=== PATIENT | female | born 1955 | race Caucasian/White ===

== ENCOUNTER 2019-07-30 09:57 | Emergency (ER) | payer OTHER ==
[2019-07-30 11:15] LABS: Absolute Lymphocytes (CBC) 3.2 K/uL (0.7-4.9); Basophils % 0.8 % (0-1.3); Hematocrit 38.6 % (36.0-45.0); Lymphocytes % 38.7 % (15.3-44.8); MPV 8.5 fL (7.6-11.3); RBC Red Blood Cell Count 4.43 M/uL (3.86-4.86)
--- NOTE | 2019-07-30 11:23 | RAD REPORT ---
EXAM DESCRIPTION: RAD - Femur Right - 07/30/2019 10:59 am CLINICAL HISTORY: Fall, right leg pain COMPARISON: None. FINDINGS: No fracture, dislocation or periosteal reaction noted. Patient has minimal right hip joint degenerative change. Femoral head maintains smooth rounded contour. Degenerative changes are present at the knee joint. Medial compartment and patellofemoral compartment marginal spurs are present. No measurable joint effusion. No air or foreign body in the soft tissues. IMPRESSION: Hip and knee joint degenerative changes are present but no fracture or acute finding see n.
--- NOTE | 2019-07-30 11:24 | RAD REPORT ---
EXAM DESCRIPTION: RAD - Humerus Left - 07/30/2019 10:59 am CLINICAL HISTORY: Fall, left arm pain COMPARISON: None. FINDINGS: No fracture is identified. There is no dislocation or periosteal reaction noted. No forei gn body or other soft tissue abnormality. Patient has degenerative change at the AC joint without spu rring. Acromial humeral joint space is normal. Elbow joint is not optimally imaged; however, no signi ficant degenerative change or acute finding seen. IMPRESSION: No fracture or acute left humerus finding.
--- NOTE | 2019-07-30 11:25 | RAD REPORT ---
EXAM DESCRIPTION: RAD - Knee Left 3 View - 07/30/2019 10:59 am CLINICAL HISTORY: Left knee pain status post injury FINDINGS: No fracture or dislocation is seen. Bones are osteoporotic
[2019-07-30 11:38] LABS: ALT/SGPT 20 U/L (12-78); AST/SGOT 15 U/L (15-37); Albumin 3.4 g/dL (3.4-5.0); Alkaline Phosphatase 110 U/L (45-117); BUN Blood Urea Nitrogen 11 mg/dL (7-18); Bicarbonate 30 mmol/L (21-32); Bilirubin Direct < 0.1 mg/dL (0-0.2); Bilirubin Total 0.3 mg/dL (0.2-1.0); Glucose Level 168 mg/dL (74-106); Lipase 54 U/L (73-393); Potassium 3.6 mmol/L (3.5-5.1); Protein, Total 7.2 g/dL (6.4-8.2); Sodium Level 144 mmol/L (136-145)
--- NOTE | 2019-07-30 12:06 | RAD REPORT ---
EXAM DESCRIPTION: CT - Head Brain Wo Cont - 07/30/2019 11:50 am CLINICAL HISTORY: Head injury status post fall. Headache COMPARISON: 2014 TECHNIQUE: Computed axial tomography of the head was obtained. IV contrast was not requested. All CT scans are performed using dose optimization technique as appropriate and may include automated exposure control or mA/KV adjustment according to patient size. FINDINGS: An intracranial bleed is not seen . The ventricles are normal in caliber. No extra-axial fluid collection is noted. Moderate low-density areas present within the right frontal lobe extending into the right internal ca psule and basal ganglia compatible with old infarction. Fluid within the sinuses/ mastoids is not seen. IMPRESSION: No acute intracranial abnormality is seen. If patient's symptoms persist MRI of the bra in would be recommended.
--- NOTE | 2019-07-30 12:12 | RAD REPORT ---
EXAM DESCRIPTION: CT - Abdomen Pelvis W Contrast - 07/30/2019 11:50 am CLINICAL HISTORY: Abdominal pain COMPARISON: 2011 TECHNIQUE: Computed axial tomography of the abdomen pelvis was obtained. 100 cc Isovue-300 was admin istered intravenously. Oral contrast was not requested which limits evaluation of bowel. All CT scans are performed using dose optimization technique as appropriate and may include automated exposure control or mA/KV adjustment according to patient size. FINDINGS: Fatty liver The spleen, pancreas, adrenals and left kidney unremarkable Malrotation of the right kidney. Right kidney is otherwise unremarkable There is no evidence of diverticulitis. Hysterectomy. Cholecystectomy Duodenal diverticulum IMPRESSION: No acute abnormality is displayed.
--- NOTE | 2019-07-30 12:49 | ER ---
Nurse's Notes [facility] Name: Aurea Felix Age: 64 yrs Sex: Female : 1955 Arrival Date: 07/30/2019 Time: 10:02 Bed 14 Private MD: Diagnosis: Pain in left knee;Contusion of abdominal wall;Fall from bed Presentation: 07/30 09:56 Presenting complaint: EMS states: Pt. is A \T\ O x 4 and fell last night, c/o left knee rb1 pain 8/10. [facility] reports that the pt. face looks more swollen than usual, but some swelling is normal for the pt. History of CVA, left sided deficits, hypertension, and GERD. NKDA. BP 161/85,P 102, R 98% RA, R 16. Transition of care: [facility]. Onset of symptoms was July 29, 2019. Risk Assessment: Do you want to hurt yourself or someone else? Patient reports no desire to harm self or others. Initial Sepsis Screen: Does the patient meet any 2 criteria? No. Patient's initial sepsis screen is negative. Does the patient have a suspected source of infection? No. Patient's initial sepsis screen is negative. Care prior to arrival: None. 09:56 Method Of Arrival: EMS: [facility] rb1 09:56 Acuity: JUAN A 3 rb1 Triage Assessment: 09:56 General: Appears in no apparent distress. comfortable, Behavior is calm, cooperative, rb1 Denies fever, feeling ill. Pain: Complains of pain in left knee and right thigh Pain currently is 8 out of 10 on a pain scale. Pain began 1 day ago. Neuro: Level of Consciousness is awake, alert, obeys commands, Oriented to person, place, time, situation. Cardiovascular: Capillary refill < 3 seconds is brisk in bilateral fingers. Respiratory: Airway is patent Respiratory effort is even, unlabored, Respiratory pattern is regular, symmetrical. GI: No signs and/or symptoms were reported involving the gastrointestinal system. : No signs and/or symptoms were reported regarding the genitourinary system. Derm: Bruising that is yellow, on left knee, left heck. 09:56 Derm: Bruising that is dark purple, on epigastric area Pt. reports when she fell rb1 yesterday that she hit the brake on her wheelchair that is next to the bed.. Musculoskeletal: Range of motion: left sided deficits due to previous stroke. Historical: - Allergies: 09:56 No Known Allergies; rb1 - Home Meds: :56 alendronate 70 mg/75 mL Oral soln 75 mL once wkly [Active]; aspirin 325 mg Oral tab 1 rb1 tab once daily [Active]; atorvastatin 40 mg oral tab [Active]; baclofen 10 mg Oral tab 1 tab 3 times per day [Active]; cyanocobalamin (vitamin B-12) 100 mcg oral tab daily [Active]; cyclobenzaprine 10 mg Oral tab 1 tab 2 times per day [Active]; Ditropan XL 5 mg Oral tr24 1 tab once daily [Active]; duloxetine 60 mg Oral cpDR 2 caps once daily [Active]; docusate sodium 250 mg Oral cap 1 cap once daily [Active]; hydroxyzine pamoate 25 mg Oral cap 1 cap 3 times per day [Active]; ipratropium-albuterol 0.5 mg-3 mg(2.5 mg base)/3 mL Inhl nebu 3 mL 4 times per day [Active]; loratadine 10 mg oral tab 1 tab once daily [Active]; losartan 50 mg oral tab 2 tabs once daily [Active]; Lyrica 75 mg Oral 1 cap 3 times per day [Active]; melatonin 3 mg Oral tab 2 tabs nightly [Active]; metoprolol tartrate 25 mg Oral tab 1 tab 2 times per day [Active]; mirtazapine 30 mg Oral tab 1 tab once daily [Active]; multivitamin oral oral [Active]; 09:56 [place] 10-325 mg Oral tab 1 tab three times a day [Active]; omeprazole 20 mg Oral TbEC rb1 20 mg every 8 hours [Active]; Vitamin D3 oral 500-200 mg-unit oral 1 tab twice a day [Active]; propranolol 40 mg Oral tab 1 tab 2 times per day [Active]; ropinrole hcl 0.25 mg 1 tab nightly [Active]; senna 8.6 mg oral cap 2 caps two times a day [Active]; - PMHx: 09:56 acid reflux; CVA; Diverticulitis; Hyperlipidemia; TIA; rb1 - Immunization history:: Adult Immunizations up to date. - Social history:: Smoking status: Patient uses tobacco products, smokes one-half pack cigarettes per day. - Ebola Screening: : Patient negative for fever greater than or equal to 101.5 degrees Fahrenheit, and additional compatible Ebola Virus Disease symptoms. Screenin:56 Abuse screen: Denies threats or abuse. Nutritional screening: No deficits noted. rb1 Tuberculosis screening: No symptoms or risk factors identified. Fall Risk Fall in past 12 months (25 points). Secondary diagnosis (15 points) CVA, IV access (20 points). Ambulatory Aid- Crutches/Cane/Walker (15 pts). Gait- Normal/Bed Rest/Wheelchair (0 pts) Mental Status- Oriented to own ability (0 pts). Total Cal[place]oun Fall Scale indicates High Risk Score (45 or more points). Fall prevention measures have been instituted. Side Rails Up X 2 Placed Close to Nursing Station 1:1 Attendant Assigned Frequent Obs/Assessments Occuring As available patient and family educated on Fall Prevention Program and Strategies. Assessment: 09:56 General: See triage assessment. rb1 11:00 Reassessment: Patient appears in no apparent distress at this time. No changes from rb1 previously documented assessment. 11:30 Reassessment: Patient appears in no apparent distress at this time. Patient and/or rb1 family updated on plan of care and expected duration. Pain level reassessed. Patient is alert, oriented x 3, equal unlabored respirations, skin warm/dry/pink. 12:12 Reassessment: Patient appears in no apparent distress at this time. Pt. is resting with rb1 eyes closed, respirations even, unlabored. Call light within reach. 12:55 Reassessment: Called [facility] and gave report, requested transportation back to the [facility] facility. They will provide transportation, will call us back when they make arrangements. 13:03 Reassessment: Discharge pending due to transportation back to the facility. rb1 13:22 Reassessment: Patient appears in no apparent distress at this time. Patient and/or rb1 family updated on plan of care and expected duration. Pain level reassessed. Patient is alert, oriented x 3, equal unlabored respirations, skin warm/dry/pink. Awaiting transportation back to the facililty. 13:45 Reassessment: Patient appears in no apparent distress at this time. No changes from rb1 previously documented assessment. 14:07 Reassessment: Patient appears in no apparent distress at this time. Patient and/or rb1 family updated on plan of care and expected duration. Pain level reassessed. Patient is alert, oriented x 3, equal unlabored respirations, skin warm/dry/pink. Transportation has arrived. Vital Signs: 09:56 BP 144 / 81; Pulse 102; Resp 16; Temp 98.1(O); Pulse Ox 96% on R/A; Weight 76.66 kg rb1 (R); Height 5 ft. 1 in. (154.94 cm) (R); Pain 8/10; 11:00 BP 137 / 73; Pulse 78; Resp 19; Pulse Ox 95% on R/A; Pain 8/10; rb1 11:30 BP 121 / 69; Pulse 76; Resp 21; Pulse Ox 95% on R/A; rb1 12:30 BP 110 / 71; Pulse 70; Resp 17; Pulse Ox 95% on R/A; rb1 13:30 BP 128 / 78; Pulse 71; Resp 15; Temp 98.3(O); Pulse Ox 96% on R/A; Pain 6/10; rb1 09:56 Body Mass Index 31.93 (76.66 kg, 154.94 cm) rb1 ED Course: 09:56 Arm band placed on right wrist. rb1 09:56 Patient has correct armband on for positive identification. Placed in gown. Bed in low rb1 position. Call light in reach. Side rails up X2. media monitor on. Pulse ox on. NIBP on. Warm blanket given. 10:02 Patient arrived in ED. em1 10:07 Tami Sawant, RN is Primary Nurse. rb1 10:13 Triage completed. rb1 10:14 Ofelia Moffett FNP-C is PHCP. kb 10:14 Aayush Rodriguez MD is Attending Physician. kb 11:02 Initial lab(s) drawn, by me, sent to lab. Inserted saline lock: 22 gauge in right jb1 antecubital area, using aseptic technique. Blood collected. 11:20 Femur Right XRAY In Process Unspecified. EDMS 11:20 Knee Left 3 View XRAY In Process Unspecified. EDMS 11:20 Humerus Left XRAY In Process Unspecified. EDMS 11:20 Chest Single View XRAY In Process Unspecified. EDMS 12:05 CT Head Brain wo Cont In Process Unspecified. EDMS 12:05 CT Abd/Pelvis - IV Contrast Only In Process Unspecified. EDMS 14:11 No provider procedures requiring assistance completed. IV discontinued, intact, rb1 bleeding controlled, No redness/swelling at site. Pressure dressing applied. Administered Medications: No medications were administered Outcome: 12:48 Discharge ordered by . kb 14:11 Patient left the ED. rb1 14:11 Discharged to [facility] by their transportation service. rb1 14:11 Condition: stable 14:11 Discharge instructions given to patient, Instructed on discharge instructions, follow up and referral plans. Demonstrated understanding of instructions, follow-up care, Prescriptions given X none Signatures: Dispatcher [employer] EDMS Temo Reynoso jb1 Ofelia Moffett, [facility] em1 Tami Sawant, RN RN rb1 Corrections: (The following items were deleted from the chart) 15:36 09:56 BP 144 / 81; Pulse 102bpm; Resp 16bpm; Pulse Ox 96% RA; 76.66 kg Reported; Height rb1 5 ft. 1 in. Reported; BMI: 31.9; Pain 8/10; rb1 15:36 12:30 BP 128 / 78; Pulse 71bpm; Resp 15bpm; Pulse Ox 96% RA; Temp 98.3F Oral; Pain rb1 6/10; rb1
--- NOTE | 2019-07-30 12:50 | EDPHYS ---
Physician Documentation [facility] Name: Aurea Felix Age: 64 yrs Sex: Female : 1955 Arrival Date: 07/30/2019 Time: 10:02 Bed 14 Private MD: ED Physician Aayush Rodriguez HPI: 07/30 10:29 This 64 yrs old Female presents to ER via EMS with complaints of Left Knee kb pain. 10:29 Details of fall: The patient fell from a height, off furniture, approximately 3 feet. kb Onset: The symptoms/episode began/occurred last night. Associated injuries: The patient sustained injury to the abdomen, specifically the epigastric area, ecchymosis, tenderness, left knee, ecchymosis, painful injury. Severity of symptoms: At their worst the symptoms were moderate, in the emergency department the symptoms are unchanged. The patient has experienced similar episodes in the past. The patient has not recently seen a physician. Pt reports she fell out of bed twice last night, c/o left knee pain. States the [facility] staff said her face looked more swollen as well, but she normally has some facial swelling. No obvious swelling noted compared to pt profile picture from [facility]. Pt denies any other pain. Upon exam there is a bruise to epigastric area. Pt reports she hit that spot with the wheelchair when she fell, but it only hurts upon palpations. Reports tenderness to upper left arm and right leg upon exam as well. . Historical: - Allergies: 09:56 No Known Allergies; rb1 - Home Meds: 09:56 alendronate 70 mg/75 mL Oral soln 75 mL once wkly [Active]; aspirin 325 mg Oral tab 1 rb1 tab once daily [Active]; atorvastatin 40 mg oral tab [Active]; baclofen 10 mg Oral tab 1 tab 3 times per day [Active]; cyanocobalamin (vitamin B-12) 100 mcg oral tab daily [Active]; cyclobenzaprine 10 mg Oral tab 1 tab 2 times per day [Active]; Ditropan XL 5 mg Oral tr24 1 tab once daily [Active]; duloxetine 60 mg Oral cpDR 2 caps once daily [Active]; docusate sodium 250 mg Oral cap 1 cap once daily [Active]; hydroxyzine pamoate 25 mg Oral cap 1 cap 3 times per day [Active]; ipratropium-albuterol 0.5 mg-3 mg(2.5 mg base)/3 mL Inhl nebu 3 mL 4 times per day [Active]; loratadine 10 mg oral tab 1 tab once daily [Active]; losartan 50 mg oral tab 2 tabs once daily [Active]; Lyrica 75 mg Oral 1 cap 3 times per day [Active]; melatonin 3 mg Oral tab 2 tabs nightly [Active]; metoprolol tartrate 25 mg Oral tab 1 tab 2 times per day [Active]; mirtazapine 30 mg Oral tab 1 tab once daily [Active]; multivitamin oral oral [Active]; 09:56 Cross 10-325 mg Oral tab 1 tab three times a day [Active]; omeprazole 20 mg Oral TbEC rb1 20 mg every 8 hours [Active]; Vitamin D3 oral 500-200 mg-unit oral 1 tab twice a day [Active]; propranolol 40 mg Oral tab 1 tab 2 times per day [Active]; ropinrole hcl 0.25 mg 1 tab nightly [Active]; senna 8.6 mg oral cap 2 caps two times a day [Active]; - PMHx: 09:56 acid reflux; CVA; Diverticulitis; Hyperlipidemia; TIA; rb1 - Immunization history:: Adult Immunizations up to date. - Social history:: Smoking status: Patient uses tobacco products, smokes one-half pack cigarettes per day. - Ebola Screening: : Patient negative for fever greater than or equal to 101.5 degrees Fahrenheit, and additional compatible Ebola Virus Disease symptoms. ROS: 10:27 Constitutional: Negative for fever, chills, and weight loss, ENT: Negative for injury, kb pain, and discharge, Neck: Negative for injury, pain, and swelling, Cardiovascular: Negative for chest pain, palpitations, and edema, Respiratory: Negative for shortness of breath, cough, wheezing, and pleuritic chest pain, Abdomen/GI: Negative for abdominal pain, nausea, vomiting, diarrhea, and constipation, Back: Negative for injury and pain, Skin: Negative for injury, rash, and discoloration, Neuro: Negative for headache, weakness, numbness, tingling, and seizure. 10:27 MS/extremity: Positive for injury or acute deformity, ecchymosis, pain, swelling, tenderness. Exam: 10:21 Constitutional: This is a well developed, well nourished patient who is awake, alert, kb and in no acute distress. Head/Face: Normocephalic, atraumatic. Eyes: Pupils equal round and reactive to light, extra-ocular motions intact. Lids and lashes normal. Conjunctiva and sclera are non-icteric and not injected. Cornea within normal limits. Periorbital areas with no swelling, redness, or edema. ENT: Nares patent. No nasal discharge, no septal abnormalities noted. Tympanic membranes are normal and external auditory canals are clear. Oropharynx with no redness, swelling, or masses, exudates, or evidence of obstruction, uvula midline. Mucous membranes moist. Neck: Trachea midline, no thyromegaly or masses palpated, and no cervical lymphadenopathy. Supple, full range of motion without nuchal rigidity, or vertebral point tenderness. No Meningismus. Chest/axilla: Normal chest wall appearance and motion. Nontender with no deformity. No lesions are appreciated. Cardiovascular: Regular rate and rhythm with a normal S1 and S2. No gallops, murmurs, or rubs. Normal PMI, no JVD. No pulse deficits. Respiratory: Lungs have equal breath sounds bilaterally, clear to auscultation and percussion. No rales, rhonchi or wheezes noted. No increased work of breathing, no retractions or nasal flaring. Back: No spinal tenderness. No costovertebral tenderness. Full range of motion. Skin: Warm, dry with normal turgor. Normal color with no rashes, no lesions, and no evidence of cellulitis. 10:21 Abdomen/GI: Inspection: bruising, epigastric area, Bowel sounds: normal, in all quadrants, Palpation: soft, in all quadrants, nontender, in the right upper quadrant, left upper quadrant, right lower quadrant and left lower quadrant, mild abdominal tenderness, in the epigastric area, over bruised area. 10:21 Musculoskeletal/extremity: Extremities: grossly normal except: noted in the left knee: contusion, ecchymosis, pain, swelling, tenderness, bruising appears old (yellow in color), noted in the left upper arm: tenderness, noted in the right quadriceps: tenderness, ROM: full active range of motion, in the right arm, right leg and left leg, full passive range of motion, in the right arm, right leg and left leg, limited passive range of motion, in the left arm, contracted from previous stroke, Pulses: are normal with no appreciated deficits, Sensation intact. Weight bearing: can bear weight with assistance only, uses cane. 10:28 Neuro: Orientation: is normal, Mentation: is normal, Memory: is normal, Motor: no acute kb changes, Sensation: is normal. Vital Signs: 09:56 BP 144 / 81; Pulse 102; Resp 16; Temp 98.1(O); Pulse Ox 96% on R/A; Weight 76.66 kg rb1 (R); Height 5 ft. 1 in. (154.94 cm) (R); Pain 8/10; 11:00 BP 137 / 73; Pulse 78; Resp 19; Pulse Ox 95% on R/A; Pain 8/10; rb1 11:30 BP 121 / 69; Pulse 76; Resp 21; Pulse Ox 95% on R/A; rb1 12:30 BP 110 / 71; Pulse 70; Resp 17; Pulse Ox 95% on R/A; rb1 13:30 BP 128 / 78; Pulse 71; Resp 15; Temp 98.3(O); Pulse Ox 96% on R/A; Pain 6/10; rb1 09:56 Body Mass Index 31.93 (76.66 kg, 154.94 cm) rb1 MDM: 10:14 Patient medically screened. kb 10:27 Data reviewed: vital signs, nurses notes. Data interpreted: Pulse oximetry: on room air kb is 96 %. Interpretation: normal. 12:34 Counseling: I had a detailed discussion with the patient and/or guardian regarding: the kb historical points, exam findings, and any diagnostic results supporting the discharge/admit diagnosis, lab results, radiology results, the need for outpatient follow up, a family practitioner, to return to the emergency department if symptoms worsen or persist or if there are any questions or concerns that arise at home. 07/30 10:26 Order name: Basic Metabolic Panel; Complete Time: 11:38 kb 07/30 10:26 Order name: CBC with Diff; Complete Time: 11:19 kb 07/30 10:21 Order name: CT Head Brain wo Cont; Complete Time: 12:21 kb 07/30 10:21 Order name: Femur Right XRAY; Complete Time: 11:38 kb 07/30 10:26 Order name: Hepatic Function; Complete Time: 11:38 kb 07/30 10:26 Order name: Lipase; Complete Time: 12:21 kb 07/30 10:21 Order name: Knee Left 3 View XRAY; Complete Time: 11:38 kb 07/30 10:21 Order name: Humerus Left XRAY; Complete Time: 11:38 kb 07/30 10:21 Order name: Chest Single View XRAY; Complete Time: 13:03 kb 07/30 10:26 Order name: IV Saline Lock; Complete Time: 11:02 kb 07/30 10:26 Order name: Labs collected and sent; Complete Time: 11:02 kb 07/30 10:26 Order name: CT Abd/Pelvis - IV Contrast Only; Complete Time: 12:21 kb Administered Medications: No medications were administered Disposition: 17:20 Co-signature as Attending Physician, Aayush Rodriguez MD. rn Disposition: 07/30/19 12:48 Discharged to Home. Impression: Pain in left knee, Contusion of abdominal wall, Fall from bed. - Condition is Stable. - Discharge Instructions: Musculoskeletal Pain, Contusion, [id number], Fall Prevention in the Home, [id number]. - Medication Reconciliation Form, Thank You Letter, Antibiotic Education, Prescription Opioid Use form. - Follow up: Emergency Department; When: As needed; Reason: Worsening of condition. Follow up: Private Physician; When: 2 - 3 days; Reason: Recheck today's complaints, Continuance of care, Re-evaluation by your physician. Signatures: Dispatcher [employer] [facility] Ofelia Moffett, SHIRT CLOSER-C SHIRT CLOSER-Ckb Aayush Rodriguez MD MD rn Barber, Rebecca, RN RN rb1 Corrections: (The following items were deleted from the chart) 10:29 10:21 Constitutional: This is a well developed, well nourished patient who is awake, kb alert, and in no acute distress. Head/Face: Normocephalic, atraumatic. Eyes: Pupils equal round and reactive to light, extra-ocular motions intact. Lids and lashes normal. Conjunctiva and sclera are non-icteric and not injected. Cornea within normal limits. Periorbital areas with no swelling, redness, or edema. ENT: Nares patent. No nasal discharge, no septal abnormalities noted. Tympanic membranes are normal and external auditory canals are clear. Oropharynx with no redness, swelling, or masses, exudates, or evidence of obstruction, uvula midline. Mucous membranes moist. Neck: Trachea midline, no thyromegaly or masses palpated, and no cervical lymphadenopathy. Supple, full range of motion without nuchal rigidity, or vertebral point tenderness. No Meningismus. Chest/axilla: Normal chest wall appearance and motion. Nontender with no deformity. No lesions are appreciated. Cardiovascular: Regular rate and rhythm with a normal S1 and S2. No gallops, murmurs, or rubs. Normal PMI, no JVD. No pulse deficits. Respiratory: Lungs have equal breath sounds bilaterally, clear to auscultation and percussion. No rales, rhonchi or wheezes noted. No increased work of breathing, no retractions or nasal flaring. Back: No spinal tenderness. No costovertebral tenderness. Full range of motion. Skin: Warm, dry with normal turgor. Normal color with no rashes, no lesions, and no evidence of cellulitis. Neuro: Awake and alert, GCS 15, oriented to person, place, time, and situation. Cranial nerves II-XII grossly intact. Motor strength 5/5 in all extremities. Sensory grossly intact. Cerebellar exam normal. Normal gait. kb 11:41 10:21 Musculoskeletal/extremity: Extremities: grossly normal except: noted in the left kb knee: contusion, ecchymosis, pain, swelling, tenderness, ROM: full active range of motion, in the right arm, right leg and left leg, full passive range of motion, in the right arm, right leg and left leg, limited passive range of motion, in the left arm, contracted from previous stroke, Pulses: are normal with no appreciated deficits, Sensation intact. Weight bearing: can bear weight with assistance only, uses cane, kb 14:11 12:48 07/30/2019 12:48 Discharged to Home. Impression: Pain in left knee; Contusion of rb1 abdominal wall; Fall from bed. Condition is Stable. Discharge Instructions: Musculoskeletal Pain, Contusion, [id number], Fall Prevention in the Home, [id number]. Forms are Medication Reconciliation Form, Thank You Letter, Antibiotic Education, Prescription Opioid Use. Follow up: Emergency Department; When: As needed; Reason: Worsening of condition. Follow up: Private Physician; When: 2 - 3 days; Reason: Recheck today's complaints, Continuance of care, Re-evaluation by your physician. kb
--- NOTE | 2019-07-30 12:53 | RAD REPORT ---
EXAM DESCRIPTION: RAD - Chest Single View - 07/30/2019 10:59 am CLINICAL HISTORY: Fall, chest pain COMPARISON: March 2016 TECHNIQUE: AP portable chest image was obtained 1048 hours . FINDINGS: No pulmonary contusion or acute lung parenchymal process. Interstitial pattern is not subs tantially different from comparison. Minimal edema or infiltrate could be masked by the chronic patte rn. Heart and vasculature are normal. No measurable pleural effusion and no pneumothorax. No gross [place] abnormality seen on portable imaging. No acute aortic findings suspected. IMPRESSION: No acute cardiopulmonary process.
[2019-07-30 14:16] VITALS: O2SAT 95
[2019-07-30 14:17] VITALS: BP 121/69
== END 2019-07-30 14:11 | disposition home or self-care (01) ==
LOC: ER 09:57
DX: S30.1XXA Contusion of abdominal wall, initial encounter (principal); W06.XXXA Fall from bed, initial encounter; Y93.9 Activity, unspecified; Y92.122 Bedroom in nursing home as the place of occurrence of the external cause; Z79.82 Long term (current) use of aspirin; Z86.73 Personal history of transient ischemic attack (TIA), and cerebral infarction without residual deficits; E78.5 Hyperlipidemia, unspecified; F17.210 Nicotine dependence, cigarettes, uncomplicated
CPT/HCPCS: 85025; 80048; 36415; 80076; 83690; 70450; 74177; 71045; 73060; 73562; 73552; 99284; Q9967

== ENCOUNTER 2020-08-03 18:23 | Emergency (ER) | payer OTHER ==
[2020-08-03] MEDS ORDERED: NA CHLORIDE 0.9% 3,000 ML ONE (18:51)
[2020-08-03 19:18] LABS: Absolute Lymphocytes (CBC) 2.8 K/uL (0.7-4.9); Basophils % 0.8 % (0-1.3); Hematocrit 35.3 % (36.0-45.0); Lymphocytes % 19.9 % (15.3-44.8); MPV 8.9 fL (7.6-11.3); RBC Red Blood Cell Count 3.89 M/uL (3.86-4.86)
--- NOTE | 2020-08-03 19:19 | RAD REPORT ---
EXAM DESCRIPTION: CT - [id number] - 08/03/2020 7:08 pm CLINICAL HISTORY: Trauma, head and neck injury. ams COMPARISON: Soft Tissue Neck W/Contr dated 11/06/2017 TECHNIQUE: Axial 5 mm thick images of the head were obtained. Axial 2 mm thick images of the cervical spine were obtained with sagittal and coronal reconstruction images generated and reviewed. All CT scans are performed using dose optimization technique as appropriate and may include automated exposure control or mA/KV adjustment according to patient size. FINDINGS: CT HEAD WITHOUT CONTRAST: No acute hemorrhage, hydrocephalus or extra-axial collection is identified.Gliosis is seen in the dis tribution of the right middle cerebral artery compatible with old infarct.No areas of brain edema or midline shift. The paranasal sinuses and mastoids are clear.The calvarium is intact. CT CERVICAL SPINE WITHOUT CONTRAST: No fracture or subluxation.Mild multilevel cervical degenerative changes.No prevertebral soft tissues swelling is identified. IMPRESSION: No acute intracranial or cervical spine findings.
[2020-08-03 19:22] LABS: Protime INR 1.07
[2020-08-03 19:37] LABS: ALT/SGPT 19 U/L (12-78); AST/SGOT 19 U/L (15-37); Albumin 3.2 g/dL (3.4-5.0); Alkaline Phosphatase 40 U/L (45-117); Amylase 27 U/L (25-115); BUN Blood Urea Nitrogen 44 mg/dL (7-18); Bicarbonate 23 mmol/L (21-32); Bilirubin Direct < 0.1 mg/dL (0-0.2); Bilirubin Total 0.4 mg/dL (0.2-1.0); CKMB Creatine Kinase MB < 1.0 ng/mL (0.3-3.6); Creatine Phosphokinase 46 U/L (26-192); Glucose Level 177 mg/dL (74-106); Lipase 62 U/L (73-393); Potassium 4.1 mmol/L (3.5-5.1); Protein, Total 6.7 g/dL (6.4-8.2); Sodium Level 139 mmol/L (136-145); Troponin I < 0.02 ng/mL (0.0-0.045)
--- NOTE | 2020-08-03 19:42 | RAD REPORT ---
EXAM DESCRIPTION: RAD - Chest Single View - 08/03/2020 7:35 pm CLINICAL HISTORY: CONGESTION Chest pain. COMPARISON: No comparisonsChest Single View dated 07/30/2019; Chest Single View dated 04/02/2016; CHEST SINGLE VIEW dated 09/08/2015; CHEST SINGLE VIEW dated 04/05/2014 FINDINGS: Portable technique limits examination quality. Mild interstitial prominence is seen. This could indicate viral pneumonitis or mild interstitial pulm onary edema. The heart is normal in size. No displaced fractures.
[2020-08-03] MEDS ORDERED: CEFEPIME/SWI 1gm 10 ML ONE (20:08)
[2020-08-03] MEDS ORDERED: VANCOMYCIN 1 GM/VIAL ONE (20:08)
[2020-08-03] MEDS ORDERED: NA CHLORIDE 0.9% 250 ML ONE (20:08)
[2020-08-03 20:33] LABS: Urine Blood NEGATIVE (NEG); Urine Glucose NEGATIVE (NEG); Urine Protein NEGATIVE (NEG); Urine Specific Gravity 1.025 (1.005-1.030)
[2020-08-03] MEDS ORDERED: NA CHLORIDE 0.9% 500 ML ONE (20:47)
[2020-08-03 21:04] LABS: Urine RBC <5 /HPF (NONE SEEN); Urine Urothelial Cells <5 /HPF (NONE SEEN)
[2020-08-03 21:05] LABS: Calcium Oxalate Crystals- Ur FEW (NONE SEEN); Urine Amorphous Sediment 1+ /HPF (NONE SEEN); Urine Bacteria 20-50 /HPF (<20)
[2020-08-03] MEDS ORDERED: NOREPINEPHRINE 4mg/D5W 250mL 4 MG/250 ML BAG IV ONE (21:54)
--- NOTE | 2020-08-03 21:54 | ER ---
Nurse's Notes [facility] Name: Aurea Felix Age: 65 yrs Sex: Female : 1955 Arrival Date: 08/03/2020 Time: 18:25 Bed 24 Private MD: Diagnosis: Urinary tract infection, site not specified;Altered mental status, unspecified;Sepsis, unspecified organism;Hypotension, unspecified;Acute kidney failure Presentation: 08/03 18:30 Chief complaint: EMS states: [facility] staff called for unresponsive. Pt c/o nausea hb at lunch, was given Phenergan, found altered in bed just before dinner. BGL 150, Metformin 500 mg PO administered, then recheck BGL 115 so they administered glucagon and oral glucose. Pt remains obtunded. Coronavirus screen: At this time, the client does not indicate any symptoms associated with coronavirus-19. Ebola Screen: No symptoms or risks identified at this time. Initial Sepsis Screen: Does the patient meet any 2 criteria? Systolic BP < 90 mmHg. Mean Arterial Pressure (MAP) < 65. Altered Mental Status. Yes Does the patient have a suspected source of infection? No. Patient's initial sepsis screen is negative. Risk Assessment: Do you want to hurt yourself or someone else? Patient reports no desire to harm self or others. Onset of symptoms was August 03, 2020. 18:30 Acuity: JUAN A 2 hb 18:30 Method Of Arrival: EMS: [facility] Historical: - Allergies: 18:33 No Known Allergies; hb - PMHx: 18:33 acid reflux; CVA; Diverticulitis; Hyperlipidemia; TIA; hb - Immunization history:: Adult Immunizations up to date. - Social history:: Smoking status: unknown. - Family history:: not pertinent. - Hospitalizations: : No recent hospitalization is reported. - History obtained from: EMS. Screenin:47 Abuse screen: Denies threats or abuse. Denies injuries from another. Nutritional ca1 screening: No deficits noted. Tuberculosis screening: No symptoms or risk factors identified. Fall Risk Secondary diagnosis (15 points) impaired mobility, IV access (20 points). Total Cal[place]oun Fall Scale indicates High Risk Score (45 or more points). Fall prevention measures have been instituted. Side Rails Up X 2 Frequent Obs/Assessments Occuring. Assessment: 18:47 General: Appears in no apparent distress. Pain: Unable to use pain scale. Patient is ca1 unresponsive. Neuro: Level of Consciousness is obtunded, Oriented to none. Cardiovascular: Heart tones S1 S2 present Capillary refill < 3 seconds Patient's skin is warm and dry. Rhythm is sinus rhythm. Respiratory: Airway is compromised Respiratory effort is even, unlabored, Respiratory pattern is regular, symmetrical. Respiratory: GI: Abdomen is round non-distended, Bowel sounds present X 4 quads. Abd is soft X 4 quads. Derm: Skin is intact, is healthy with good turgor, Skin is pink, warm \\T\\ dry. Musculoskeletal: Circulation, motion, and sensation intact. Capillary refill < 3 seconds. 19:38 Reassessment: Patient appears in no apparent distress at this time. No changes from ca1 previously documented assessment. 19:50 Reassessment: Patient appears in no apparent distress at this time. No changes from ca1 previously documented assessment. 20:30 Reassessment: Patient appears in no apparent distress at this time. No changes from ca1 previously documented assessment. 21:07 Reassessment: Patient appears in no apparent distress at this time. No changes from ca1 previously documented assessment. 21:51 Reassessment: Patient appears in no apparent distress at this time. PT responded to ca1 verbal commands. Opened eyes. Once name was called, answered, "yes". 22:31 Reassessment: Patient appears in no apparent distress at this time. No changes from ca1 previously documented assessment. 22:33 Reassessment: VO to decrease Levophed to 3mcg/min by Dr. Rodriguez. ca1 22:45 Reassessment: Pt to CT. ca1 23:19 Reassessment: Patient appears in no apparent distress at this time. No changes from ca1 previously documented assessment. Pt responsive to verbal commands. Eyes closed at this time. 08/04 00:04 Reassessment: Patient appears in no apparent distress at this time. No changes from ca1 previously documented assessment. 00:04 General: Appears in no apparent distress. Behavior is drowsy. Neuro: Level of ca1 Consciousness is confused, lethargic, Oriented to person, place. 00:47 Reassessment: Patient appears in no apparent distress at this time. No changes from ca1 previously documented assessment. Called report to DIRK Mascorro. 01:37 Reassessment: Patient appears in no apparent distress at this time. No changes from ca1 previously documented assessment. 02:38 Reassessment: Patient appears in no apparent distress at this time. No changes from ca1 previously documented assessment. Vital Signs: 08/03 18:30 BP 70 / 42; Pulse 63; Resp 14; Temp 97.8; Pulse Ox 97% on R/A; Pain 0/10; hb 18:35 Weight 100 kg; hb 18:53 BP 67 / 54; Pulse 63; Resp 15; Pulse Ox 98% on R/A; hb 19:31 BP 75 / 45; Pulse 74; Resp 14 S; Pulse Ox 91% on R/A; ca1 19:45 BP 84 / 40; Pulse 69; Resp 14 S; Pulse Ox 90% on R/A; ca1 20:00 BP 87 / 56; Pulse 69; Resp 13 S; Pulse Ox 87% on R/A; ca1 20:01 Pulse Ox 95% on 2 lpm NC; ca1 20:15 BP 91 / 59; Pulse 66; Resp 14 S; Pulse Ox 95% on R/A; ca1 20:30 BP 87 / 57; Pulse 68; Resp 14 S; Pulse Ox 94% on 2 lpm NC; ca1 20:45 BP 86 / 53; Pulse 71; Resp 13 S; Pulse Ox 95% on R/A; ca1 21:00 BP 68 / 51; Pulse 70; Resp 13 S; Pulse Ox 96% on 2 lpm NC; ca1 21:15 BP 85 / 59; Pulse 63; Resp 14 S; Pulse Ox 96% on 2 lpm NC; ca1 21:30 BP 88 / 56; Pulse 69; Resp 14 S; Pulse Ox 96% on 2 lpm NC; ca1 21:45 BP 103 / 58; Pulse 67; Resp 14 S; Pulse Ox 96% on 2 lpm NC; ca1 22:00 BP 130 / 57; Pulse 67; Resp 14 S; Pulse Ox 96% on R/A; ca1 22:15 BP 143 / 73; Pulse 63; Resp 15 S; Pulse Ox 96% on R/A; ca1 22:30 BP 130 / 59; Pulse 65; Resp 16 S; Pulse Ox 96% on 2 lpm NC; ca1 23:00 BP 104 / 55; Pulse 77; Resp 15 S; Pulse Ox 100% on R/A; ca1 23:15 BP 128 / 58; Pulse 67; Resp 14 S; Pulse Ox 99% on R/A; ca1 08/04 00:04 BP 136 / 65; Pulse 74; Resp 16 S; Pulse Ox 97% on 2 lpm NC; ca1 01:00 BP 145 / 91; Pulse 73; Resp 18 S; Pulse Ox 100% on 2 lpm NC; ca1 01:30 BP 144 / 100; Pulse 73; Resp 15 S; Pulse Ox 100% on 2 lpm NC; ca1 02:00 BP 90 / 60; Pulse 77; Resp 15 S; Pulse Ox 98% on 2 lpm NC; ca1 02:30 BP 114 / 60; Pulse 78; Resp 20 S; Pulse Ox 97% on R/A; ca1 08/03 18:30 [place] (FACES) hb [place] Coma Score: 08/03 19:31 Eye Response: to pain(2). Verbal Response: incomprehensible(2). Motor Response: ca1 withdraws from pain(4). Total: 8. 20:00 Eye Response: to pain(2). Verbal Response: incomprehensible(2). Motor Response: ca1 withdraws from pain(4). Total: 8. 20:30 Eye Response: to pain(2). Verbal Response: incomprehensible(2). Motor Response: ca1 withdraws from pain(4). Total: 8. 21:53 Eye Response: to voice(3). Verbal Response: inappropriate words(3). Motor Response: ca1 localizes pain(5). Total: 11. 22:33 Eye Response: to voice(3). Verbal Response: confused(4). Motor Response: localizes ca1 pain(5). Total: 12. 08/04 00:09 Eye Response: to voice(3). Verbal Response: confused(4). Motor Response: obeys ca1 commands(6). Total: 13. ED Course: 08/03 18:25 Patient arrived in ED. ds1 18:32 Triage completed. hb 18:33 Arm band placed on. hb 18:42 Inserted saline lock: 20 gauge in right antecubital area, using aseptic technique. ca1 Blood collected. 18:42 Initial lab(s) drawn, by me, sent to lab. First set of blood cultures drawn by me. ca1 18:46 Jennifer Pina, RN is Primary Nurse. ca1 18:47 Patient has correct armband on for positive identification. Placed in gown. Bed in low ca1 position. Call light in reach. Side rails up X2. security monitor on. Pulse ox on. NIBP on. Warm blanket given. 19:01 Aayush Rodriguez MD is Attending Physician. rn 19:07 CT Head C Spine In Process Unspecified. EDMS 19:35 Chest Single View XRAY In Process Unspecified. EDMS 19:36 Inserted saline lock: 22 gauge in left antecubital area, using aseptic technique. Blood ca1 collected. 19:36 Second set of blood cultures drawn by me. ca1 19:36 Back cath inserted, using sterile technique, 18 Fr., by me, balloon inflated, to ca1 gravity drainage, urine specimen collected. returned cloudy urine. Patient tolerated well. 21:38 Assisted provider with central line placement. Set up central line tray. Triple lumen ca1 line placed in right femoral. Line placed by Aayush Rodriguez MD Placement verified by blood return, Dressed with Tegaderm, Patient tolerated well. Time-out/Briefing performed prior to start of procedure? Yes. Was handwashing/sanitizing done immediately prior to procedure? Yes. Was patient positioned to in a way to prevent air embolism? Yes. Was procedure site sterilized? Yes, with chlorhexidine. Was the site allowed to dry? Yes. During the procedure, did the Practitioner(s) maintain a sterile field? Yes. Were unused ports clamped during insertion? Yes. Was blood aspirated from each lumen? Yes. After the procedure, did the Practitioner(s) clean the site and apply a sterile dressing? Yes. 21:53 Yonis Gold DO is Hospitalizing Provider. rn 21:54 Mike Rodriguez MD is Hospitalizing Provider. rn 22:58 initiated a transfer with Cary Myles the [employer] from [facility]. [facility] 22:59 administrative approval given by Cary Myles RN/ patient has been accepted to [address] ICU bed 192/ Dr. Shaggy Vega has accepted the patient in transfer/ report to be called to [phone]. 08/04 02:39 Patient transferred, IV remains in place. ca1 Administered Medications: 08/03 18:40 Drug: NS 0.9% (30 ml/kg) 30 ml/kg Route: IV; Rate: bolus; Site: right antecubital; hb 20:00 Follow up: IV Status: Completed infusion; IV Intake: 2000ml ca1 19:58 Drug: Cefepime 1 grams Route: IVPB; Rate: 200 ml/hr; Infused Over: 30 mins; Site: left ca1 antecubital; 20:30 Follow up: Response: No adverse reaction; IV Status: Completed infusion ca1 20:00 Drug: NS 0.9% 500 ml Route: IV; Rate: bolus; Site: right antecubital; ca1 20:30 Follow up: Response: No adverse reaction; IV Status: Completed infusion; IV Intake: ca1 500ml 20:08 Drug: vancoMYCIN 1 grams Route: IVPB; Infused Over: 2 hrs; Site: right antecubital; ca1 22:00 Follow up: Response: No adverse reaction; IV Status: Completed infusion; IV Intake: ca1 250ml 21:48 Drug: Levophed (4 mg/250 mL D5W 4 mcg/min Route: IV; Rate: calculated rate; Site: right ca1 femoral; 12 00:19 Follow up: IV Status: Infusion continued upon transfer ca1 Intake: 08/03 20:00 IV: 2000ml; Total: 2000ml. ca1 20:30 IV: 500ml; Total: 2500ml. ca1 22:00 IV: 250ml; Total: 2750ml. ca1 Output: 08/04 02:30 Urine: 500ml (Back); Total: 500ml. ca1 Outcome: 08/03 21:53 Decision to Hospitalize by Provider. rn 08/04 00:19 ER care complete, transfer ordered by . rn 02:39 Transferred by ground EMS Transfer form completed. X-rays sent w/ patient. Note: ca1 [facility] 02:39 Condition: stable 02:39 Instructed on the need for transfer. 02:40 Patient left the ED. ca1 Signatures: Dispatcher [employer] [facility] Neema Campos ds1 Aayush Rodriguez MD MD rn Baxter, Heather, RN RN hb [place], MyKena mw2 Jennifer Pina RN RN ca1 Corrections: (The following items were deleted from the chart) 08/03 21:57 21:51 Reassessment: Patient appears in no apparent distress at this time. PT responded ca1 to verbal commands. Opened eyes. ca1 08/04 00:04 00:04 Reassessment: Patient appears in no apparent distress at this time. No changes ca1 from previously documented assessment. ca1 00:09 00:04 Neuro: Level of Consciousness is confused, lethargic, ca1 ca1
--- NOTE | 2020-08-03 21:55 | EDPHYS ---
Physician Documentation [facility] Name: Aurea Felix Age: 65 yrs Sex: Female : 1955 Arrival Date: 08/03/2020 Time: 18:25 Bed 24 Private MD: ED Physician Aayush Rodriguez HPI: 08/03 19:09 This 65 yrs old Female presents to ER via EMS with complaints of Altered rn Mental Status. 19:09 The patient presents with decreased responsiveness. Onset: The symptoms/episode rn began/occurred lunch time. Possible causes: unknown. Associated signs and symptoms: Pertinent positives: confusion. Current symptoms: In the emergency department the patient's symptoms are unchanged from the initial presentation. It is unknown whether or not the patient has had similar symptoms in the past. The patient has not recently seen a physician. Per reports, brought from [facility] for decreased responsiveness, began around lunchtime with nausea. Given home meds, including abx for diverticulitis, then given glucose without change. Pt responsive to pain. . Historical: - Allergies: 18:33 No Known Allergies; hb - PMHx: 18:33 acid reflux; CVA; Diverticulitis; Hyperlipidemia; TIA; hb - Immunization history:: Adult Immunizations up to date. - Social history:: Smoking status: unknown. - Family history:: not pertinent. - Hospitalizations: : No recent hospitalization is reported. - History obtained from: EMS. ROS: 19:09 Unable to obtain ROS due to altered mental status. rn Exam: 19:12 Constitutional: Agitated patient with decreased responsiveness Head/Face: rn Normocephalic, atraumatic. Eyes: Periorbital areas with no swelling, redness, or edema. ENT: dry MM Cardiovascular: Regular rate and rhythm. No pulse deficits. Respiratory: No increased work of breathing, no retractions or nasal flaring. Abdomen/GI: soft, non-distended Skin: Warm, dry MS/ Extremity: Pulses equal, no cyanosis. Neuro: Somnolent, answers "yes" to some questions, responsive to painful stimuli. Vital Signs: 18:30 BP 70 / 42; Pulse 63; Resp 14; Temp 97.8; Pulse Ox 97% on R/A; Pain 0/10; hb 18:35 Weight 100 kg; hb 18:53 BP 67 / 54; Pulse 63; Resp 15; Pulse Ox 98% on R/A; hb 19:31 BP 75 / 45; Pulse 74; Resp 14 S; Pulse Ox 91% on R/A; ca1 19:45 BP 84 / 40; Pulse 69; Resp 14 S; Pulse Ox 90% on R/A; ca1 20:00 BP 87 / 56; Pulse 69; Resp 13 S; Pulse Ox 87% on R/A; ca1 20:01 Pulse Ox 95% on 2 lpm NC; ca1 20:15 BP 91 / 59; Pulse 66; Resp 14 S; Pulse Ox 95% on R/A; ca1 20:30 BP 87 / 57; Pulse 68; Resp 14 S; Pulse Ox 94% on 2 lpm NC; ca1 20:45 BP 86 / 53; Pulse 71; Resp 13 S; Pulse Ox 95% on R/A; ca1 21:00 BP 68 / 51; Pulse 70; Resp 13 S; Pulse Ox 96% on 2 lpm NC; ca1 21:15 BP 85 / 59; Pulse 63; Resp 14 S; Pulse Ox 96% on 2 lpm NC; ca1 21:30 BP 88 / 56; Pulse 69; Resp 14 S; Pulse Ox 96% on 2 lpm NC; ca1 21:45 BP 103 / 58; Pulse 67; Resp 14 S; Pulse Ox 96% on 2 lpm NC; ca1 22:00 BP 130 / 57; Pulse 67; Resp 14 S; Pulse Ox 96% on R/A; ca1 22:15 BP 143 / 73; Pulse 63; Resp 15 S; Pulse Ox 96% on R/A; ca1 22:30 BP 130 / 59; Pulse 65; Resp 16 S; Pulse Ox 96% on 2 lpm NC; ca1 23:00 BP 104 / 55; Pulse 77; Resp 15 S; Pulse Ox 100% on R/A; ca1 23:15 BP 128 / 58; Pulse 67; Resp 14 S; Pulse Ox 99% on R/A; ca1 10 00:04 BP 136 / 65; Pulse 74; Resp 16 S; Pulse Ox 97% on 2 lpm NC; ca1 01:00 BP 145 / 91; Pulse 73; Resp 18 S; Pulse Ox 100% on 2 lpm NC; ca1 01:30 BP 144 / 100; Pulse 73; Resp 15 S; Pulse Ox 100% on 2 lpm NC; ca1 02:00 BP 90 / 60; Pulse 77; Resp 15 S; Pulse Ox 98% on 2 lpm NC; ca1 02:30 BP 114 / 60; Pulse 78; Resp 20 S; Pulse Ox 97% on R/A; ca1 08/03 18:30 [place] (FACES) hb [place] Coma Score: 08/03 19:31 Eye Response: to pain(2). Verbal Response: incomprehensible(2). Motor Response: ca1 withdraws from pain(4). Total: 8. 20:00 Eye Response: to pain(2). Verbal Response: incomprehensible(2). Motor Response: ca1 withdraws from pain(4). Total: 8. 20:30 Eye Response: to pain(2). Verbal Response: incomprehensible(2). Motor Response: ca1 withdraws from pain(4). Total: 8. 21:53 Eye Response: to voice(3). Verbal Response: inappropriate words(3). Motor Response: ca1 localizes pain(5). Total: 11. 22:33 Eye Response: to voice(3). Verbal Response: confused(4). Motor Response: localizes ca1 pain(5). Total: 12. 12 00:09 Eye Response: to voice(3). Verbal Response: confused(4). Motor Response: obeys ca1 commands(6). Total: 13. Procedures: 08/03 21:34 Central Line: the site was prepped with Betadine, in sterile fashion, a triple lumen rn catheter was inserted, in the right in 1 attempts. placement was verified, by blood return, the site was dressed with Tegaderm, using sterile technique, the patient tolerated the procedure, well. MDM: 19:01 Patient medically screened. rn 21:34 ED course: Central line placed 2/2 persistent Hypotension despite 30cc/kg bolus. . rn 21:50 Differential Diagnosis: CVA, electrolyte abnormality, pneumonia, sepsis, UTI, volume rn depletion. Data reviewed: vital signs, nurses notes, lab test result(s), radiologic studies, CT scan, and as a result, I will admit patient. Counseling: I had a detailed discussion with the patient and/or guardian regarding: the historical points, exam findings, and any diagnostic results supporting the discharge/admit diagnosis, lab results, radiology results, the need for further work-up and treatment in the hospital. Admission orders: after a detailed discussion of the patient's condition and case, the admit orders are written by me. ED course: ICU bed available. Will admit. Abx started, central line placed, improved BP, levophed started. . 08/04 00:18 ED course: Gave report to Dr. Vega, agrees to see patient upon transfer. . rn 08/03 18:35 Order name: Amylase, Serum ri2 08/03 18:35 Order name: Basic Metabolic Panel [facility] 08/03 18:35 Order name: Blood Culture Adult (2) ri2 08/03 18:35 Order name: CBC with Diff ri2 08/03 18:35 Order name: Ckmb [facility] 08/03 18:35 Order name: CPK [facility] 08/03 18:35 Order name: Lactate [facility] 08/03 18:35 Order name: LFT's [facility] 08/03 18:35 Order name: Lipase [facility] 08/03 18:35 Order name: Procalcitonin [facility] 08/03 18:35 Order name: Protime (+inr) [facility] 08/03 18:35 Order name: Ptt, Activated [facility] 08/03 18:35 Order name: Troponin (emerg Dept Use Only) [facility] 08/03 18:35 Order name: Urine Microscopic Only [facility] 08/03 18:36 Order name: Amylase [facility] 08/03 18:36 Order name: Basic Metabolic Panel [facility] 08/03 18:36 Order name: Blood Culture [facility] 08/03 18:48 Order name: Glucose, Ancillary Testing; Complete Time: 18:56 EDMA 08/03 18:56 Order name: COVID-19 [facility] 08/03 19:04 Order name: Lactate; Complete Time: 19:12 EDMS 08/03 19:26 Order name: CORONAVIRUS [facility] 08/03 19:34 Order name: CBC with Automated Diff; Complete Time: 19:45 EDMS 08/03 19:37 Order name: Urine Dipstick--Ancillary (enter results) [facility] 08/03 19:42 Order name: Protime (+INR); Complete Time: 19:45 EDMS 08/03 19:42 Order name: PTT, Activated Partial Thromb; Complete Time: 19:45 EDMS 08/03 20:06 Order name: Procalcitonin; Complete Time: 20:10 EDMS 08/03 20:10 Order name: SARS-COV-2 RT PCR; Complete Time: 20:10 EDMS 08/03 20:18 Order name: Basic Metabolic Panel; Complete Time: 20:24 EDMS 08/03 20:18 Order name: Liver (Hepatic) Function; Complete Time: 20:24 EDMS 08/03 20:18 Order name: Creatine Phosphokinase; Complete Time: 20:24 EDMS 08/03 18:35 Order name: Chest Single View XRAY; Complete Time: 19:45 ma2 08/03 18:35 Order name: Accucheck; Complete Time: 18:41 ma2 08/03 18:35 Order name: Cardiac monitoring; Complete Time: 18:41 ma2 08/03 18:35 Order name: EKG - Nurse/Tech; Complete Time: 18:51 ma2 08/03 18:35 Order name: IV Saline Lock - Large Bore; Complete Time: 18:41 ma2 08/03 18:35 Order name: Labs collected and sent; Complete Time: 18:46 ma2 08/03 18:35 Order name: O2 Per Protocol; Complete Time: 18:41 ma2 08/03 18:35 Order name: O2 Sat Monitoring; Complete Time: 18:41 ma2 08/03 18:35 Order name: Urine Dipstick-Ancillary (obtain specimen); Complete Time: 19:36 ma2 08/03 18:35 Order name: CT Head C Spine; Complete Time: 19:33 ma2 08/03 20:34 Order name: Urine Dipstick-Ancillary; Complete Time: 20:46 EDMS 08/03 21:05 Order name: Urine Microscopic Only; Complete Time: 21:33 EDMS 08/03 21:54 Order name: CT Chest Abdomen Pelvis W/O Contrast la1 Administered Medications: 08/03 18:40 Drug: NS 0.9% (30 ml/kg) 30 ml/kg Route: IV; Rate: bolus; Site: right antecubital; hb 20:00 Follow up: IV Status: Completed infusion; IV Intake: 2000ml ca1 19:58 Drug: Cefepime 1 grams Route: IVPB; Rate: 200 ml/hr; Infused Over: 30 mins; Site: left ca1 antecubital; 20:30 Follow up: Response: No adverse reaction; IV Status: Completed infusion ca1 20:00 Drug: NS 0.9% 500 ml Route: IV; Rate: bolus; Site: right antecubital; ca1 20:30 Follow up: Response: No adverse reaction; IV Status: Completed infusion; IV Intake: ca1 500ml 20:08 Drug: vancoMYCIN 1 grams Route: IVPB; Infused Over: 2 hrs; Site: right antecubital; ca1 22:00 Follow up: Response: No adverse reaction; IV Status: Completed infusion; IV Intake: ca1 250ml 21:48 Drug: Levophed (4 mg/250 mL D5W 4 mcg/min Route: IV; Rate: calculated rate; Site: right ca1 femoral; 08/04 00:19 Follow up: IV Status: Infusion continued upon transfer ca1 Disposition: 08/03 21:50 Critical Care:. rn Disposition: 08/04/20 00:19 Transfer ordered to Other Acute Care Facility. Diagnosis are Urinary tract infection, site not specified, Altered mental status, unspecified, Sepsis, unspecified organism, Hypotension, unspecified, Acute kidney failure. - Reason for transfer: Higher level of care. - Accepting physician is Dr. Vega. - Condition is Fair. - Problem is new. - Symptoms have improved. Critical care time excluding procedures: 21:50 Critical care time: Bedside Care: 25 minutes, Consultation: 5 minutes. Total time: 30 rn minutes Signatures: Dispatcher [employer] EDMS Aayush Rodriguez MD MD rn Attema, Lee, EMBROIDERY DESIGNER-C EMBROIDERY DESIGNER-Cla1 Yenni Marsh RN RN Deangelo Rogel MD MD ma2 Jennifer Pina RN RN ca1 Corrections: (The following items were deleted from the chart) 19:46 19:12 Constitutional: Agitated patient with decreased responsiveness Head/Face: rn Normocephalic, atraumatic. Eyes: Periorbital areas with no swelling, redness, or edema. ENT: dry MM Cardiovascular: Regular rate and rhythm. No pulse deficits. Respiratory: No increased work of breathing, no retractions or nasal flaring. Abdomen/GI: soft, mild lower abd tenderness Skin: Warm, dry MS/ Extremity: Pulses equal, no cyanosis. Neuro: Somnolent, answers "yes" to some questions, responsive to painful stimuli. rn 21:54 21:53 Hospitalization Ordered by Yonis Gold DO for Inpatient Admission. Preliminary rn diagnosis is Urinary tract infection, site not specified; Sepsis, unspecified organism; Hypotension, unspecified; Altered mental status, unspecified. Bed requested for Intensive Care Unit. Status is Inpatient Admission. Condition is Fair. Problem is new. Symptoms have improved. rn 21:54 21:54 08/03/2020 21:53 Hospitalization Ordered by Mike Rodriguez MD for Inpatient rn ent. Preliminary diagnosis is Urinary tract infection, site not specified; Sepsis, unspecified organism; Hypotension, unspecified; Altered mental status, unspecified. Bed requested for Intensive Care Unit. Status is Inpatient Admission. Condition is Fair. Problem is new. Symptoms have improved. rn 08/04 00:18 08/03 21:54 08/03/2020 21:53 Hospitalization Ordered by Mike Rodriguez MD for Inpatient rn ent. Preliminary diagnosis is Urinary tract infection, site not specified; Sepsis, unspecified organism; Hypotension, unspecified; Altered mental status, unspecified; Acute kidney failure. Bed requested for Intensive Care Unit. Status is Inpatient Admission. Condition is Fair. Problem is new. Symptoms have improved. rn 08/04 02:40 00:19 08/04/2020 00:19 Transfer ordered to Other Acute Care Facility. Diagnosis is ca1 Urinary tract infection, site not specified; Altered mental status, unspecified; Sepsis, unspecified organism; Hypotension, unspecified; Acute kidney failure. Reason for transfer: Higher level of care. Accepting physician is Dr. Vega. Condition is Fair. Problem is new. Symptoms have improved. rn
--- NOTE | 2020-08-04 10:58 | EKG ---
Test Date: 2020-08-03 Test Time: 18:48:38 Open Developer Operator: HB MEASUREMENT RESULTS: Intervals: Rate: 61 MO: 142 QRSD: 84 QT: 474 QTc: 477 [place]: P: 29 MO: 142 QRS: 47 T: 63 INTERPRETIVE STATEMENTS: Normal sinus rhythm Normal ECG Compared to ECG 04/03/2016 06:34:35 Sinus bradycardia no longer present Electronically Signed On 08-04-20 10:56:28 FOIL WRAPPER by Jose Bansal
--- NOTE | 2020-08-04 14:56 | RAD REPORT ---
EXAM DESCRIPTION: CT - Chest Abd Pelvis Wo Con - 08/04/2020 6:56 am CLINICAL HISTORY: Sepsis, hypotension COMPARISON: None. 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 FINDINGS: Chest: The heart is normal in size. There is no pericardial effusion. Intrathoracic lymph nodes are not enlarged. There is a right femoral venous line with the tip in the right external lorie ac vein. There is a minimal right pleural effusion. Central airways are patent. There is mild bibasilar atelec tasis. Abdomen: Liver is fatty in attenuation. There is no biliary dilatation. Cholecystectomy was performed . The pancreas and spleen are normal in appearance. Adrenal glands are normal. Kidneys are mildly atr ophic. 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 Abdominal aorta is normal in course and caliber without aneurysm. There is no free air. There is no r etroperitoneal adenopathy. Pelvis: There is mild left colonic diverticulosis. Urinary bladder is decompressed with a Back ankit ter. There is no free fluid. Hysterectomy was performed. Appendix is normal. Skeleton: There are no acute osseous findings. No suspicious bony lesions. IMPRESSION: No definite acute findings. Electronically signed by: Tahir Desai MD 08/03/2020 11:51 PM TIN TIE MACHINE OPERATOR AUTOMATIC Due to temporary technical issues with the PACS/Fluency reporting system, reports are being signed by the in house radiologists without review as a courtesy to insure prompt reporting. The interpreting radiologist is fully responsible for the content of the report.
[2020-08-09 12:32] VITALS: BP 114/60; O2SAT 97
== END 2020-08-04 02:40 ==
LOC: ER 18:23 → ERHOLD 22:33 → UNDOADMIN 22:33 → UNDODISIN 08-04 02:39
PROC: 0T9B70Z Drainage of Bladder with Drainage Device, Via Natural or Artificial Opening (ICD-10-PCS; principal; 2020-08-04)
PROC: 05HD33Z Insertion of Infusion Device into Right Cephalic Vein, Percutaneous Approach (ICD-10-PCS; 2020-08-04)
DX: N17.9 Acute kidney failure, unspecified (principal); A41.9 Sepsis, unspecified organism; N39.0 Urinary tract infection, site not specified; I95.9 Hypotension, unspecified; Z20.828 Contact with and (suspected) exposure to other viral communicable diseases
CPT/HCPCS: 93005; 87040 ×2; 85025; 87086; 80048; 36415; 82150; 82550; 87205; 85610; 82947; 80076; 83605; 85730; 84484; 82553; 83690; 84145; 70450; 71250; 72125; 74176; 71045; 51702; 99291; 99292; 36556; U0003; J3370; J0692; J7050; J7040; J7030; 81003; 81015; 87088

== ENCOUNTER 2022-05-04 08:02 | Emergency (ER) | payer OTHER ==
--- OUTSIDE RECORDS SUMMARY | 2022-05-04 08:06 | XMS REPORT | Continuity of Care Document ---
:[address] [facility] t Address [address] [place] [address] Care Team Providers Name Role Phone NONSTAFF Primary Care Physician Unavailable PANDA LOPEZ Attending Clinician Unavailable PANDA LOPEZ Admitting Clinician Unavailable Payers Payer Name Policy Type Policy Number Effective Date Expiration Date Chrystal Valadez [id number] 2019 [facility] 00:00:00 Patient [facility] Medicare A & B [id number] 2010 [facility] 00:00:00 Patient Medical Center Problems Condition Condition Condition Status Onset Resolution Last Treating Co mments Source Name Details Category Date Date Treatment Clinician Date Problem Condition Active [facility] Allergies, Adverse Reactions, Alerts Allergy Allergy Status Severity Reaction(s) Onset Inactive Treating Comm ents Source Name Type Date Date Clinician No Known DA Active [facility] Social History Social Habit Start Date Stop Date Quantity Comments Source Sex Assigned At [birth year] Female [facility] 00:00:00 00:00:00 [facility] Medications Ordered Filled Start Stop Current Ordering Indication Dosage Frequency Signature Comments Components Source Medication Medication Date Date Medication? Clinician (SIG) Name Name Calcium Calcium Yes [address] [facility] Carbonate/V Carbonate/V Day for [facility] itamin D3 itamin D3 Osteoporos Patient (Calcium (Calcium is Medical 500 + Vit D 500 + Vit D C enter 200 Tablet) 200 Tablet) 1 Each 1 Each TABLET TABLET Docusate Docusate Yes [address] [facility] Sodium Sodium needed for [facility] Constipati Patient on Medical Center Duloxetine Duloxetine Yes [address] [facility] Hcl Hcl Major [facility]ukes (Cymbalta) (Cymbalta) Depressive Patient 30 Mg 30 Mg Disorder Medical CAPSULE.DR ARROYO.DR Jennifer santillan Fenofibrate Fenofibrate Yes [address] [facility] (Tricor) (Tricor) for [facility]ukes 145 Mg TAB 145 Mg TAB Hyperlipid Patient [facility] Furosemide Furosemide Yes [address] [facility] (Lasix) 20 (Lasix) 20 Chronic [facility]ukes Mg TABLET Mg TABLET Ischemic P atient [facility] Disease Center Levofloxaci Levofloxaci Yes [address] [facility] n n Diverticul [facility] itis [facility] Loratadine Loratadine Yes [address] [facility] Seasonal [facility] Allergies [facility] Metronidazo Metronidazo Yes [address] [facility] le (Flagyl) le (Flagyl) Hours for [facility]ukes 500 Mg 500 Mg Diverticul Patie nt TABLET TABLET [facility] Omeprazole Omeprazole Yes [address] [facility] Medical Center Oxybutynin Oxybutynin Yes [address] [facility] Chloride Chloride Stress [facility]ukes (Ditropan (Ditropan Incontinen Patient Xl) 5 Mg Xl) 5 Mg ce Medical TAB.ER.24 TAB.ER.24 Cente r Potassium Potassium Yes [address] [facility] Chloride Chloride Chronic Luke s Ischemic Patient [facility] Promethazin Promethazin Yes [address] [facility] e Hcl e Hcl Hours as [facility]ukes (Phenergan) (Phenergan) needed for Patient 25 Mg/1 Ml 25 Mg/1 Ml Nausea And Medical AMPUL AMPUL Vomiting Center Propranolol Propranolol Yes [address] [facility] Hcl Hcl Day for [facility] Primary Patient Hypertensi Medical on Center Ropinirole Ropinirole Yes Bedtime [facility] Hcl for [facility] Restless Patient Leg Medical Syndrome Center Sennoside Sennosides Yes 8.[address] [facility] (Senna Lax) (Senna Lax) Hours as Lukes 8.6 Mg 8.6 Mg needed for Patie nt TABLET TABLET Constipati Medic al on Center Trazodone Trazodone Yes [address] Hcl Hcl for [facility] Insomnia Patient Medical Center Baclofen Baclofen Yes [address] Times A Lukes Day for Patient Muscle Medical Spasm Center Vital Signs Vital Name Observation Time Observation Value Comments Source Body Temperature 2020-08-09 08:49:00 98.0 [degF] [facility] Heart Rate 2020-08-09 08:49:00 89 /min [facility] Respiratory rate 2020-08-09 08:49:00 18 /min [facility] BP Systolic 2020-08-09 08:49:00 151 mm[Hg] [facility] BP Diastolic 2020-08-09 08:49:00 81 mm[Hg] [facility] Oxygen saturation by 2020-08-09 08:49:00 98 /min [facility] Pulse oximetry Patient Medic ct Center BMI (Body Mass Index) 2020-08-04 10:44:00 36.3 kg/m2 [facility] Weight 2020-08-04 04:39:00 225 [lb_av] [facility] Procedures Procedure Date / Time Performed Performing Clinician [facility] e X-ray of chest, two 2020-08-08 00:00:00 [facility] Encounters Start End Encounter Admission Attending Care Care Encounter Source Date/Time Date/Time Type Type Clinicians Facility Department ID 2020-08-04 Inpatient [facility] [id number] [facility] [id number] [facility] 2020-08-04 2020-08-09 Discharged 1 LOPEZ, [facility] [id number] [facility] 04:17:00 12:05:00 Inpatient [facility] 16 [facility] Results Test Description Test Time Test Comments Results Result Comments Source Capillary blood glucose measurement by glucometer (mas s/volume) 2020-08-09 10:32:00 Test Item Value Reference Range Interpretation Comme nts Bedside Glucose (test code = 08446-3) 107 mg/dL 70-120 [facility] blood glucose measurement by glucometer (mass/volume)2020-08-09 10:32:00 Test Item Value Reference Range Interpretation Comments Bedside Glucose (test code = 107 mg/dL 70-120 32253-0) [facility] CampusFluoroscopic procedure less than one hour [id number] 16:15:00 Test Item Value Reference Range Interpretation Comments Coronavirus (PCR) (test code = NOT DETECTED NOTDETECTED Coronavirus (PCR)) SARS-COV2/RT-PCR CEPHEIDResults are for the detection of SARS-COV-2 RNA. The SARS-COV-2 RNA is generally detectable in nasopharyngeal swab specimens during the acute phase of infection. Positive results are indicitive of active infection with SARS-COV-2; clinical correlation with patient history and other diagnostic information is necessary to determine patient infection status. Positive results do not rule out bacterial infection or co-infection with other viruses. The agent detected may not be thedefinite cause of the disease.The limit of detection for this assay is 250 copies/mLThe SARS-CoV-2 test is a rapid, real-time RT-PCR test intended for the qualitative detection of nucleic acid from SARS-CoV-2 in nasopharyngeal swab specimen collected from individuals suspected of COVID-19 by their healthcare provider. This test has not been Food and Drug Administration (FDA) cleared or approved and has been authorized by FDA under an Emergency Use Authorization (EUA). This EUA will be effective until the declaration that circumstances exist justifying the authorization of the emergency use of in vitro diagnostic test for detection and or diagnosis of COVID-19 is terminated under section 564(b) of the Act, or the the EUA is revoked under 564(g) of the ACT.[facility] CampusFluoroscopic procedure less than one hour [id number] 16:15:00 Test Item Value Reference Range Interpretation Comments Coronavirus (PCR) (test code = NOT DETECTED NOTDETECTED Coronavirus (PCR)) SARS-COV2/RT-PCR CEPHEIDResults are for the detection of SARS-COV-2 RNA. The SARS-COV-2 RNA is generally detectable in nasopharyngeal swab specimens during the acute phase of infection. Positive results are indicitive of active infection with SARS-COV-2; clinical correlation with patient history and other diagnostic information is necessary to determine patient infection status. Positive results do not rule out bacterial infection or co-infection with other viruses. The agent detected may not be thedefinite cause of the disease.The limit of detection for this assay is 250 copies/mLThe SARS-CoV-2 test is a rapid, real-time RT-PCR test intended for the qualitative detection of nucleic acid from SARS-CoV-2 in nasopharyngeal swab specimen collected from individuals suspected of COVID-19 by their healthcare provider. This test has not been Food and Drug Administration (FDA) cleared or approved and has been authorized by FDA under an Emergency Use Authorization (EUA). This EUA will be effective until the declaration that circumstances exist justifying the authorization of the emergency use of in vitro diagnostic test for detection and or diagnosis of COVID-19 is terminated under section 564(b) of the Act, or the the EUA is revoked under 564(g) of the ACT.[facility]CH[facility] VIEWS 2020-08-08 11:47:00 [facility] 1955 Sex: F [place] [id number] Patient Name: FLAVIA CRAWFORD MR #: [id number] : 1955 Age/Sex: 65/F Req #: [id number] Adm Physician: PANDA LOPEZ MD Ordered by: PANDA LOPEZ MD Report #: [id number] Location: [facility] Room/Bed: [facility] Procedure: [id number] DX/CHEST 2 VIEWS Exam Date: 08/08/20 Exam Time:1115 REPORT STATUS: Signed EXAMINATION: CHEST 2 VIEWS INDICATION: Pneumonia COMPARISON: Chest radiograph 08/04/2020 FINDINGS: LINES/TUBES:None LUNGS:The lungs are well-inflated. No focal consolidationor pulmonary edema. PLEURA:No pleural effusion or pneumothorax. MEDIASTINUM:The cardiomediastinal silhouette appears normal in size and shape. BONES/SOFT TISSUES:No acute osseous injury. ABDOMEN:No free air under the diaphragm. IMPRESSION: No focal pneumonia or pulmonary edema. Signed by: Kristen Irby MD on 08/08/2020 11:48 AM Dictated By: KRISTEN IRBY MD 1148 Transcribed By: LUIGI on 08/08/20 1148 COPY TO: PANDA LOPEZ MDBlood leukocytes automated count (number/volume)2020-08-08 05:24:00 Test Item Value Reference Range Interpretation Comments White Blood Count (test code = 9.55 10*3/uL 4.8-10.8 6690-2) [facility] erythrocytes automated count (number/volume)2020-08-08 05:24:00 Test Item Value Reference Range Interpretation Comments Red Blood Count (test code = 3.89 10*6/mL 3.6-5.1 789-8) [facility]Blood hemoglobin measurement (moles/volume) 2020-08-08 05:24:00 Test Item Value Reference Range Interpretation Comments Hemoglobin (test code = 78086-2) 12.0 g/dL 12.0-16.0 [facility] CampusAutomated blood hematocrit (volume fraction) 2020-08-08 05:24:00 Test Item Value Reference Range Interpretation Comments Hematocrit (test code = 4544-3) 35.8 % 34.2-44.1 [facility] CampusAutomated erythrocyte mean corpuscular volume 2020-08-08 05:24:00 Test Item Value Reference Range Interpretation Comments Mean Corpuscular Volume (test code = 92.0 81-99 787-2) [facility] CampusAutomated erythrocyte mean corpuscular hemoglobin (mass per erythrocyte)2020-08-08 05:24:00 Test Item Value Reference Range Interpretation Comments Mean Corpuscular Hemoglobin (test 30.8 pg 28-32 code = 785-6) [facility] CampusAutomated erythrocyte mean corpuscular hemoglobin concentration measurement (mass/volume)2020-08-08 05:24:00 Test Item Value Reference Range Interpretation Comments Mean Corpuscular Hemoglobin Concent 33.5 g/dL 31-35 (test code = 786-4) [facility] CampusRDW VwuJw-[id number] 05:24:00 Test Item Value Reference Range Interpretation Comments Red Cell Distribution Width (test code 14.3 % 11.7-14.4 = 30177-4) [facility] CampusAutomated blood platelet count (count/volume) 2020-08-08 05:24:00 Test Item Value Reference Range Interpretation Comments Platelet Count (test code = 298 10*3/uL 140-360 777-3) [facility] CampusAutomated blood segmented neutrophil count as percentage of total ovcmwwdvqe6446-13-73 05:24:00 Test Item Value Reference Range Interpretation Comments Neutrophils (%) (Auto) (test code = 66.9 % 38.7-80.0 61042-3) [facility] CampusAutomated blood lymphocyte count as percentage ot total teldvjiaja2376-30-89 05:24:00 Test Item Value Reference Range Interpretation Comments Lymphocytes (%) (Auto) (test code = 22.2 % 18.0-39.1 736-9) [facility] CampusAutomated blood monocyte count as percentage of total sbhlwrozca4605-21-07 05:24:00 Test Item Value Reference Range Interpretation Comments Monocytes (%) (Auto) (test code = 8.6 % 4.4-11.3 5905-5) [facility] CampusAutomated blood eosinophil count as percentage of total hjqsxvyjkw8187-45-03 05:24:00 Test Item Value Reference Range Interpretation Comments Eosinophils (%) (Auto) (test code = 1.2 % 0.0-6.0 713-8) [facility] CampusAutomated blood basophil count as percentage of total fnwcmrcaxm3515-92-10 05:24:00 Test Item Value Reference Range Interpretation Comments Basophils (%) (Auto) (test code = 0.3 % 0.0-1.0 706-2) [facility] CampusFluoroscopic procedure less than one hour srdtpsia3446-82-68 05:24:00 Test Item Value Reference Range Interpretation Comments IM GRANULOCYTES % (test code = IM 0.8 % 0.0-1.0 GRANULOCYTES %) [facility] CampusAutomated blood neutrophil [id number] 05:24:00 Test Item Value Reference Range Interpretation Comments Neutrophils # (Auto) (test code = 6.4 2.1-6.9 751-8) [facility] CampusBlood lymphocytes count (number/volume) 2020-08-08 05:24:00 Test Item Value Reference Range Interpretation Comments Lymphocytes # (Auto) (test code = 2.1 1.0-3.2 42412-7) [facility] monocytes automated count (number/volume)2020-08-08 05:24:00 Test Item Value Reference Range Interpretation Comments Monocytes # (Auto) (test code = 742-7) 0.8 0.2-0.8 [facility] CampusAutomated blood eosinophil gaenr6890-76-33 05:24:00 Test Item Value Reference Range Interpretation Comments Eosinophils # (Auto) (test code = 0.1 0.0-0.4 711-2) [facility] CampusAutomated blood basophil count (count/volume) 2020-08-08 05:24:00 Test Item Value Reference Range Interpretation Comments Basophils # (Auto) (test code = 704-7) 0.0 0.0-0.1 [facility] CampusFluoroscopic procedure less than one hour osqzvrpt7989-23-82 05:24:00 Test Item Value Reference Range Interpretation Comments Absolute Immature Granulocyte 0.08 10*3/uL 0-0.1 (auto (test code = Absolute Immature Granulocyte (auto) [facility] leukocytes automated count (number/volume)2020-08-08 05:24:00 Test Item Value Reference Range Interpretation Comments White Blood Count (test code = 9.55 10*3/uL 4.8-10.8 6690-2) [facility]Bl[facility] erythrocytes automated count (number/volume)2020-08-08 05:24:00 Test Item Value Reference Range Interpretation Comments Red Blood Count (test code = 3.89 10*6/mL 3.6-5.1 789-8) [facility] CampusBlood hemoglobin measurement (moles/volume) 2020-08-08 05:24:00 Test Item Value Reference Range Interpretation Comments Hemoglobin (test code = 91772-6) 12.0 g/dL 12.0-16.0 [facility] CampusAutomated blood hematocrit (volume fraction) 2020-08-08 05:24:00 Test Item Value Reference Range Interpretation Comments Hematocrit (test code = 4544-3) 35.8 % 34.2-44.1 [facility] CampusAutomated erythrocyte mean corpuscular volume 2020-08-08 05:24:00 Test Item Value Reference Range Interpretation Comments Mean Corpuscular Volume (test code = 92.0 81-99 787-2) [facility] CampusAutomated erythrocyte mean corpuscular hemoglobin (mass per erythrocyte)2020-08-08 05:24:00 Test Item Value Reference Range Interpretation Comments Mean Corpuscular Hemoglobin (test 30.8 pg 28-32 code = 785-6) [facility] CampusAutomated erythrocyte mean corpuscular hemoglobin concentration measurement (mass/volume)2020-08-08 05:24:00 Test Item Value Reference Range Interpretation Comments Mean Corpuscular Hemoglobin Concent 33.5 g/dL 31-35 (test code = 786-4) [facility] CampusRDW LhiSm-Yrq5671-86-14 05:24:00 Test Item Value Reference Range Interpretation Comments Red Cell Distribution Width (test code 14.3 % 11.7-14.4 = 69681-9) [facility] CampusAutomated blood platelet count (count/volume) 2020-08-08 05:24:00 Test Item Value Reference Range Interpretation Comments Platelet Count (test code = 298 10*3/uL 140-360 777-3) [facility]ed [facility] segmented neutrophil count as percentage of total vocbictdda5751-31-06 05:24:00 Test Item Value Reference Range Interpretation Comments Neutrophils (%) (Auto) (test code = 66.9 % 38.7-80.0 10193-0) [facility] CampusAutomated blood lymphocyte count as percentage ot total wrbqyrwrgy1650-14-17 05:24:00 Test Item Value Reference Range Interpretation Comments Lymphocytes (%) (Auto) (test code = 22.2 % 18.0-39.1 736-9) [facility] CampusAutomated blood monocyte count as percentage of total uuzeqzhhfn1526-23-86 05:24:00 Test Item Value Reference Range Interpretation Comments Monocytes (%) (Auto) (test code = 8.6 % 4.4-11.3 5905-5) [facility] CampusAutomated blood eosinophil count as percentage of total xbhkfsewqh9753-22-54 05:24:00 Test Item Value Reference Range Interpretation Comments Eosinophils (%) (Auto) (test code = 1.2 % 0.0-6.0 713-8) [facility] CampusAutomated blood basophil count as percentage of total dqquxliqwm1879-82-64 05:24:00 Test Item Value Reference Range Interpretation Comments Basophils (%) (Auto) (test code = 0.3 % 0.0-1.0 706-2) [facility] CampusFluoroscopic procedure less than one hour wplrqiiz9463-81-82 05:24:00 Test Item Value Reference Range Interpretation Comments IM GRANULOCYTES % (test code = IM 0.8 % 0.0-1.0 GRANULOCYTES %) [facility] CampusAutomated blood neutrophil ttgmd7488-68-24 05:24:00 Test Item Value Reference Range Interpretation Comments Neutrophils # (Auto) (test code = 6.4 2.1-6.9 751-8) [facility] CampusBlood lymphocytes count (number/volume) 2020-08-08 05:24:00 Test Item Value Reference Range Interpretation Comments Lymphocytes # (Auto) (test code = 2.1 1.0-3.2 64679-3) [facility] CampusBl[facility] monocytes automated count (number/volume)2020-08-08 05:24:00 Test Item Value Reference Range Interpretation Comments Monocytes # (Auto) (test code = 742-7) 0.8 0.2-0.8 [facility] CampusAutomated blood eosinophil orlcl1856-39-81 05:24:00 Test Item Value Reference Range Interpretation Comments Eosinophils # (Auto) (test code = 0.1 0.0-0.4 711-2) [facility] CampusAutomated blood basophil count (count/volume) 2020-08-08 05:24:00 Test Item Value Reference Range Interpretation Comments Basophils # (Auto) (test code = 704-7) 0.0 0.0-0.1 [facility] CampusFluoroscopic procedure less than one hour zrjbpmlk4807-42-94 05:24:00 Test Item Value Reference Range Interpretation Comments Absolute Immature Granulocyte 0.08 10*3/uL 0-0.1 (auto (test code = Absolute Immature Granulocyte (auto) [facility] or plasma sodium measurement (moles/volume)2020-08-07 06:10:00 Test Item Value Reference Range Interpretation Comments Sodium Level (test code = 2951-2) 141 mmol/L 136-145 [facility] or plasma potassium measurement (moles/volume)2020-08-07 06:10:00 Test Item Value Reference Range Interpretation Comments Potassium Level (test code = 3.8 mmol/L 3.5-5.1 2823-3) [facility]er[facility] or plasma chloride measurement (moles/volume)2020-08-07 06:10:00 Test Item Value Reference Range Interpretation Comments Chloride Level (test code = 111 mmol/L 98-107 5-0) [facility]er[facility] or plasma carbon dioxide, total measurement (moles/volume)2020-08-07 06:10:00 Test Item Value Reference Range Interpretation Comments Carbon Dioxide Level (test code = 23 mmol/L 2027-) [facility] or plasma anion qec2304-79-79 06:10:00 Test Item Value Reference Range Interpretation Comments Anion Gap (test code = 09590-1) 10.8 mmol/L 8-16 [facility] or plasma urea nitrogen measurement (mass/volume)2020-08-07 06:10:00 Test Item Value Reference Range Interpretation Comments Blood Urea Nitrogen (test code = 7 mg/dL 7-26 3094-0) [facility]er[facility] or plasma creatinine measurement (mass/volume)2020-08-07 06:10:00 Test Item Value Reference Range Interpretation Comments Creatinine (test code = 2160-0) 0.66 mg/dL 0.57-1.11 [facility]er[facility] or plasma urea nitrogen/creatinine mass [id number] 06:10:00 Test Item Value Reference Range Interpretation Comments BUN/Creatinine Ratio (test code = 11 6-25 3097-3) [facility] CampusEstimated glomerular filtration rate (GFR) tfjudjgphhfoz1997-64-58 06:10:00 Test Item Value Reference Range Interpretation Comments Estimat Glomerular Filtration > 60 mL/min >60 Rate (test code = 064861411) Ranges were taken from the National Kidney Disease Education Program and the National Kidney Foundation literature.Reference ranges:60 or greater: Meghcs17- 59 (for 3 consecutive months): Chronic kidneydisease 15 or less: Kidney failure [facility] CampusGlucose ivmhyacyclk0265-62-42 06:10:00 Test Item Value Reference Range Interpretation Comments Glucose Level (test code = VDQ1415) 118 mg/dL 74-118 [facility]er[facility] or plasma calcium measurement (mass/volume)2020-08-07 06:10:00 Test Item Value Reference Range Interpretation Comments Calcium Level (test code = 35413-9) 8.7 mg/dL 8.4-10.2 [facility] CampusFluoroscopic procedure less than one hour ulxfylcc0715-06-69 06:10:00 Test Item Value Reference Range Interpretation Comments Lactic Acid Level (test code = 0.7 mmol/L 0.5-2.0 Lactic Acid Level) [facility] or plasma sodium measurement (moles/volume)2020-08-07 06:10:00 Test Item Value Reference Range Interpretation Comments Sodium Level (test code = 2951-2) 141 mmol/L 136-145 [facility]er[facility] or plasma potassium measurement (moles/volume)2020-08-07 06:10:00 Test Item Value Reference Range Interpretation Comments Potassium Level (test code = 3.8 mmol/L 3.5-5.1 2823-3) [facility]er[facility] or plasma chloride measurement (moles/volume)2020-08-07 06:10:00 Test Item Value Reference Range Interpretation Comments Chloride Level (test code = 111 mmol/L 98-107 5-0) [facility]er[facility] or plasma carbon dioxide, total measurement (moles/volume)2020-08-07 06:10:00 Test Item Value Reference Range Interpretation Comments Carbon Dioxide Level (test code = 23 mmol/L 2028-04) [facility] or plasma anion [id number] 06:10:00 Test Item Value Reference Range Interpretation Comments Anion Gap (test code = 37732-5) 10.8 mmol/L 8-16 [facility] or plasma urea nitrogen measurement (mass/volume)2020-08-07 06:10:00 Test Item Value Reference Range Interpretation Comments Blood Urea Nitrogen (test code = 7 mg/dL 03-20 3094-0) [facility] or plasma creatinine measurement (mass/volume)2020-08-07 06:10:00 Test Item Value Reference Range Interpretation Comments Creatinine (test code = 2160-0) 0.66 mg/dL 0.57-1.11 [facility] [facility] Resources[facility] or plasma urea nitrogen/creatinine mass [id number] 06:10:00 Test Item Value Reference Range Interpretation Comments BUN/Creatinine Ratio (test code = 11 02-17 3097-3) [facility]Estimated glomerular filtration rate (GFR) [id number] 06:10:00 Test Item Value Reference Range Interpretation Comments Estimat Glomerular Filtration > 60 mL/min >60 Rate (test code = 639384602) Ranges were taken from the National Kidney Disease Education Program and the National Kidney Foundation literature.Reference ranges:60 or greater: Uqgrso25- 59 (for 3 consecutive months): Chronic kidneydisease 15 or less: Kidney failure [facility] CampusGlucose [id number] 06:10:00 Test Item Value Reference Range Interpretation Comments Glucose Level (test code = YZF5934) 118 mg/dL 74-118 [facility] or plasma calcium measurement (mass/volume)2020-08-07 06:10:00 Test Item Value Reference Range Interpretation Comments Calcium Level (test code = 34260-1) 8.7 mg/dL 8.4-10.2 [facility] CampusFluoroscopic procedure less than one hour [id number] 06:10:00 Test Item Value Reference Range Interpretation Comments Lactic Acid Level (test code = 0.7 mmol/L 0.5-2.0 Lactic Acid Level) [facility] CampusClostridium difficile A and B toxin assay 2020-08-06 17:26:00 Test Item Value Reference Range Interpretation Comments Clostridium Difficile Toxin A & B NEGATIVE NEGATIVE (test code = 366003775) Testing on stool aspirate specimens is outside registry rn claims since specimen type not validatedon this assay.[facility] Clostridium difficile A and B toxin [id number] 17:26:00 Test Item Value Reference Range Interpretation Comments Clostridium Difficile Toxin A & B NEGATIVE NEGATIVE (test code = 330333647) Testing on stool aspirate specimens is outside registry rn claims since specimen type not validatedon this assay.[facility] Blood [id number] 16:40:00 Test Item Value Reference Range Interpretation Comments Blood Culture (test NO GROWTH AFTER 48 code = 29051337) HOURS [facility]Blood [id number] 16:40:00 Test Item Value Reference Range Interpretation Comments Blood Culture (test NO GROWTH AFTER 5 code = 60520192) DAYS, FINAL REPORT [facility] or plasma magnesium measurement (mass/volume)2020-08-06 15:10:00 Test Item Value Reference Range Interpretation Comments Magnesium Level (test code = 1.4 mg/dL 1.3-2.1 62398-7) [facility] or plasma magnesium measurement (mass/volume)2020-08-06 15:10:00 Test Item Value Reference Range Interpretation Comments Magnesium Level (test code = 1.4 mg/dL 1.3-2.1 08641-6) [facility] CampusCHEST SINGLE (PORTABLE)2020-08-04 21:56:00 [facility] : 1955 Sex: F [facility] [address] [address] Patient Name: FLAVIA CRAWFORD MR #: [id number] : 1955 Age/Sex: 65/F Req #: [id number] [facility] Physician: PANDA LOPEZ MD Ordered by: PANDA LOPEZ MD Report #: [id number] Location: MED/SURG3 Room/Bed: [facility] Procedure: [id number] DX/CHEST SINGLE (PORTABLE) Exam Date: 08/04/20 Exam Time: 2034 REPORT STATUS: Signed EXAMINATION: CHEST SINGLE (PORTABLE) INDICATION: [id number] COMPARISON: None FINDINGS: Patient rotation mildly limits examination. Heart is nonenlarged. Low lung volumes. Mild elevation of the right hemidiaphragm. Patchy and linear lung opacities at the right base. Left lung is clear. No pneumothorax. No pleural effusion. IMPRESSION: Mild elevation of the right hemidiaphragm with patchy and strandy right basilar opacities which could represent atelectasis or pneumonia the appropriate clinical setting. Mild diffuse interstitial densities may represent a component of vascular congestion. Signed by: Aldo Donis MD on 08/04/2020 9:59 PM Dictated By: ABDIRASHID DONIS MD 58 Transcribed By: LUIGI on 08/04/202158 COPY TO: PANDA LOPEZ MD
--- NOTE | 2022-05-04 08:53 | RAD REPORT ---
EXAM DESCRIPTION: CT - Head C Spine Cap Wo Con - 05/04/2022 8:29 am CLINICAL HISTORY: Trauma, head and neck injury. Chest, abdomen and pelvis pain. fall COMPARISON: Head Brain W/Wo Con dated 01/01/2022 TECHNIQUE: CT head without contrast. CT cervical spine without contrast with coronal and sagittal reformatted images. CT chest, abdomen and pelvis without contrast with coronal and sagittal reformatted images of the spi ne. All CT scans are performed using dose optimization technique as appropriate and may include automated exposure control or mA/KV adjustment according to patient size. FINDINGS: CT HEAD WITHOUT CONTRAST: No intracranial hemorrhage, hydrocephalus or extra-axial fluid collection. Area of gliosis is seen r ight frontotemporal region compatible with old infarction. The paranasal sinuses and mastoids are clear. The calvarium is intact. CT CERVICAL SPINE WITHOUT CONTRAST: No fracture or subluxation. Geyf-qo-bevownkb spondylosis of the cervical spine noted. The prevertebra l soft tissues are normal in thickness. CT CHEST, ABDOMEN, PELVIS WITHOUT CONTRAST: NOTE: Lack of contrast is a significant limitation in the assessment of trauma related findings. Spec ifically, solid organ, vascular and bowel evaluation is significantly limited. The lungs are clear.No pneumothorax or pericardial/pleural fluid. No evidence of intra-abdominal visceral injury, free fluid or free air is seen within the above detai led limitations. No concerning pelvic findings. No fractures. IMPRESSION: Negative for acute traumatic findings within the above detailed limitations.
[2022-05-04] MEDS ORDERED: NA CHLORIDE 0.9% 500 ML ONE (09:10)
[2022-05-04 09:25] LABS: Lymphocytes % 30.1 % (15.3-44.8); MCV 88.4 fL (80-100); MPV 8.4 fL (7.6-11.3); RBC Red Blood Cell Count 4.53 M/uL (3.86-4.86)
[2022-05-04 09:27] LABS: Protime INR 0.97
--- NOTE | 2022-05-04 10:05 | RAD REPORT ---
EXAM DESCRIPTION: RAD - Hip Left 2 View - 05/04/2022 9:50 am CLINICAL HISTORY: PAIN COMPARISON: No comparisons FINDINGS: Moderate degenerative changes present left hip. No fracture, dislocation or AVN grossly ap preciated. If the patient has significant pain, MRI followup would be recommended to evaluate for occ ult fracture given the degree osteopenia.
--- NOTE | 2022-05-04 10:05 | RAD REPORT ---
EXAM DESCRIPTION: RAD - Shoulder Left 2 View - 05/04/2022 9:50 am CLINICAL HISTORY: PAIN COMPARISON: No comparisons FINDINGS: The bones are diffusely osteopenic. AC joint and glenohumeral joint arthritic changes are present. No acute fracture or dislocation.
[2022-05-04 10:06] LABS: Albumin 3.4 g/dL (3.4-5.0); Bilirubin Direct 0.1 mg/dL (0-0.2); Bilirubin Total 0.3 mg/dL (0.2-1.0); Potassium 3.8 mmol/L (3.5-5.1); Protein, Total 7.2 g/dL (6.4-8.2)
--- NOTE | 2022-05-04 11:17 | RAD REPORT ---
EXAM DESCRIPTION: RAD - Chest Single View - 05/04/2022 10:42 am CLINICAL HISTORY: COUGH Chest pain. COMPARISON: Chest Single View dated 08/03/2020; Chest Single View dated 07/30/2019; Chest Single View dated 04/02/2016; CHEST SINGLE VIEW dated 09/08/2015 FINDINGS: Portable technique limits examination quality. The lungs are mildly emphysematous but grossly clear. The heart is normal in size. No displaced fract ures. IMPRESSION: No acute intrathoracic process suspected. Mild COPD.
[2022-05-04 11:26] LABS: Urine Blood Negative (Negative); Urine Glucose Negative (Negative); Urine Protein Negative (Negative); Urine Specific Gravity 1.015 (1.005-1.030)
[2022-05-04] MEDS ORDERED: FENTANYL CITR 100 MCG/2 ML ONE (11:55)
[2022-05-04] MEDS ORDERED: ONDANSETRON 4 MG/2 ML VIAL ONE (11:56)
--- NOTE | 2022-05-04 12:42 | EDPHYS ---
Physician Documentation [facility] Name: Aurea Felix Age: 67 yrs Sex: Female : 1955 Arrival Date: 05/04/2022 Time: 08:07 Bed 6 Private MD: ED Physician Kirk aDhl HPI: 05/04 10:10 This 67 yrs old Female presents to ER via EMS with complaints of Fall Injury. elena 10:10 Details of fall: The patient fell from a height, from an upright position, while elena walking. Onset: The symptoms/episode began/occurred just prior to arrival. Associated injuries: The patient sustained injury to the head, contusion, pain, injury to the chest, specifically the xiphoid area. Severity of symptoms: At their worst the symptoms were moderate, in the emergency department the symptoms have improved, mildly. The patient has not experienced similar symptoms in the past. Historical: - Allergies: 08:16 No Known Allergies; tp1 - Home Meds: 08:37 tylenol [Active]; aspirin 325 mg Oral tab 1 tab once daily [Active]; baclofen 10 mg tp1 Oral tab 1 tab 3 times per day [Active]; Buspirone Oral [Active]; docusate sodium 250 mg Oral cap 1 cap once daily [Active]; duloxetine 60 mg Oral cpDR 2 caps once daily [Active]; Gemtesa oral [Active]; Glimepiride Oral [Active]; latanoprost [Active]; Lipitor Oral [Active]; Lyrica 75 mg Oral 1 cap 3 times per day [Active]; multivitamin Oral [Active]; [place] 10-325 mg Oral tab 1 tab three times a day [Active]; omeprazole 20 mg Oral TbEC 20 mg every 8 hours [Active]; oscal [Active]; ropinrole hcl 0.25 mg 1 tab nightly [Active]; senna 8.6 mg Oral cap 2 caps two times a day [Active]; trazodone 50 mg Oral tab 1 tab at bedtime [Active]; Tricor Oral [Active]; - PMHx: 08:16 acid reflux; Diverticulitis; Hyperlipidemia; CVA; TIA; Diabetes mellitus; Osteoporosis; tp1 cranial nerve disorder; left sided weakness; restless leg syndrome; Glaucoma; cerebral infarction; Anxiety; Hypertensive disorder; GERD; Depressive disorder; - Immunization history:: Client reports receiving the 2nd dose of the Covid vaccine. - Social history:: Smoking status: Patient reports the use of cigarette tobacco products, smokes one pack cigarettes per day. - Immunization history: Last tetanus immunization: unknown. - Family history:: not pertinent. ROS: 10:10 Constitutional: Negative for fever, chills, and weight loss, Eyes: Negative for injury, elena pain, redness, and discharge, ENT: Negative for injury, pain, and discharge, Neck: Negative for injury, pain, and swelling, Cardiovascular: Negative for chest pain, palpitations, and edema, Respiratory: Negative for shortness of breath, cough, wheezing, and pleuritic chest pain, Abdomen/GI: Negative for abdominal pain, nausea, vomiting, diarrhea, and constipation, Back: Negative for injury and pain, : Negative for injury, bleeding, discharge, and swelling, Skin: Negative for injury, rash, and discoloration, Neuro: Negative for headache, weakness, numbness, tingling, and seizure, Psych: Negative for depression, anxiety, suicide ideation, homicidal ideation, and hallucinations, Allergy/Immunology: Negative for hives, rash, and allergies, Endocrine: Negative for neck swelling, polydipsia, polyuria, polyphagia, and marked weight changes, Hematologic/Lymphatic: Negative for swollen nodes, abnormal bleeding, and unusual bruising. 10:10 MS/extremity: Positive for decreased range of motion, pain, of the xiphoid area, left shoulder. Exam: 10:14 Constitutional: This is a well developed, well nourished patient who is awake, alert, elena and in no acute distress. Head/Face: Normocephalic, atraumatic. Eyes: Pupils equal round and reactive to light, extra-ocular motions intact. Lids and lashes normal. Conjunctiva and sclera are non-icteric and not injected. Cornea within normal limits. Periorbital areas with no swelling, redness, or edema. ENT: Nares patent. No nasal discharge, no septal abnormalities noted. Tympanic membranes are normal and external auditory canals are clear. Oropharynx with no redness, swelling, or masses, exudates, or evidence of obstruction, uvula midline. Mucous membranes moist. Chest/axilla: Normal chest wall appearance and motion. Nontender with no deformity. No lesions are appreciated. Cardiovascular: Regular rate and rhythm with a normal S1 and S2. No gallops, murmurs, or rubs. Normal PMI, no JVD. No pulse deficits. Respiratory: Lungs have equal breath sounds bilaterally, clear to auscultation and percussion. No rales, rhonchi or wheezes noted. No increased work of breathing, no retractions or nasal flaring. Abdomen/GI: Soft, non-tender, with normal bowel sounds. No distension or tympany. No guarding or rebound. No evidence of tenderness throughout. Back: No spinal tenderness. No costovertebral tenderness. Full range of motion. Female : Normal external genitalia. Skin: Warm, dry with normal turgor. Normal color with no rashes, no lesions, and no evidence of cellulitis. Neuro: Awake and alert, GCS 15, oriented to person, place, time, and situation. Cranial nerves II-XII grossly intact. Motor strength 5/5 in all extremities. Sensory grossly intact. Cerebellar exam normal. Normal gait. Psych: Awake, alert, with orientation to person, place and time. Behavior, mood, and affect are within normal limits. 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 10:14 ECG was reviewed by the Attending Physician. Vital Signs: 08:00 BP 154 / 69; Pulse 57; Resp 16; Temp 98.1; Pulse Ox 91% ; Weight 80.29 kg; Height 5 ft. tp1 1 in. (154.94 cm); Pain 10/10; 09:00 Pulse 45; tp1 09:36 BP 148 / 84; Pulse 55; Resp 16; Pulse Ox 96% on R/A; tp1 10:00 BP 166 / 92; Pulse 55; Resp 15; Pulse Ox 96% on R/A; tp1 10:30 BP 168 / 89; Pulse 52; Resp 16; Pulse Ox 96% on R/A; tp1 11:00 BP 148 / 73; Pulse 53; Resp 16; Pulse Ox 96% on R/A; tp1 11:30 BP 162 / 84; Pulse 59; Resp 17; Pulse Ox 95% on R/A; tp1 12:00 BP 126 / 93; Pulse 61; Resp 12; Pulse Ox 93% on R/A; tp1 12:30 BP 147 / 82; Pulse 55; Resp 17; Pulse Ox 95% on R/A; vg1 08:00 Body Mass Index 33.44 (80.29 kg, 154.94 cm) tp1 09:00 provider notified tp1 Jessica Coma Score: 08:00 Eye Response: spontaneous(4). Verbal Response: oriented(5). Motor Response: obeys vg1 commands(6). Total: 15. Trauma Score (Adult): 08:00 Eye Response: spontaneous(1); Verbal Response: oriented(1); Motor Response: obeys vg1 commands(2); Systolic BP: > 89 mm Hg(4); Respiratory Rate: 10 to 29 per min(4); [place] Score: 15; Trauma Score: 12 MDM: 08:10 Patient medically screened. [facility] 10:18 Differential diagnosis: closed head injury, contusion, fracture, multiple trauma, elena sprain. Data reviewed: vital signs, nurses notes, lab test result(s), EKG, radiologic studies, CT scan, plain films. Data interpreted: mri special procedures technologist: rate is 55 beats/min, rhythm is regular, Pulse oximetry: on room air is 100 %. Test interpretation: by ED physician or midlevel provider: ECG, plain radiologic studies. Counseling: I had a detailed discussion with the patient and/or guardian regarding: the historical points, exam findings, and any diagnostic results supporting the discharge/admit diagnosis, lab results, radiology results, the need for outpatient follow up, for definitive care, an dining room tables set up attendant, a orthopedic surgeon. 05/04 08:13 Order name: Basic Metabolic Panel; Complete Time: 10: [facility] 05/04 08:13 Order name: CBC with Diff; Complete Time: : [facility] 05/04 08:13 Order name: Type And Screen; Complete Time: 10: [facility] 05/04 08:13 Order name: Urine Culture [facility] 05/04 08:13 Order name: LFT's; Complete Time: 10: [facility] 05/04 09:12 Order name: Magnesium [facility] 05/04 08:13 Order name: CT Traumagram (Head C Spine CAP wo con); Complete Time: 09:59 [facility] 05/04 08:13 Order name: Shoulder Left (2 View) XRAY; Complete Time: 10:09 [facility] 05/04 09:12 Order name: NT PRO-BNP [facility] 05/04 09:12 Order name: PT-INR; Complete Time: 09:59 [facility] 05/04 09:12 Order name: Troponin HS [facility] 05/04 10:18 Order name: Troponin High Sensitivity: at 1130; Complete Time: 12:41 [facility] 05/04 11:27 Order name: Urine Dipstick-Ancillary; Complete Time: 11:44 EDMS 05/04 11:28 Order name: ABO/RH no charge; Complete Time: 11:44 EDMS 05/04 08:13 Order name: Labs collected and sent; Complete Time: 09:03 [facility] 05/04 08:13 Order name: Urine Dipstick-Ancillary (obtain specimen); Complete Time: 11:43 [facility] 05/04 08:13 Order name: Hip Left 2 View XRAY; Complete Time: 10:09 [facility] 05/04 09:12 Order name: XRAY Chest (1 view); Complete Time: 11:44 [facility] 05/04 09:12 Order name: EKG; Complete Time: 09:13 [facility] 05/04 09:12 Order name: Cardiac monitoring; Complete Time: 09:16 [facility] 05/04 09:12 Order name: EKG - Nurse/Tech; Complete Time: 09:15 [facility] 05/04 09:12 Order name: IV Saline Lock; Complete Time: 09:15 [facility] 05/04 09:12 Order name: O2 Per Protocol; Complete Time: 09:15 [facility] 05/04 09:12 Order name: O2 Sat Monitoring; Complete Time: 09:16 [facility] 05/04 10:29 Order name: Sling; Complete Time: 13:44 [facility] EC:14 Rate is 54 beats/min. QRS Ney is Normal. MN interval is normal. QRS interval is elena normal. QT interval is normal. No Q waves. T waves are Normal. Clinical impression: NSR w/ Non-specific ST/T Changes and No evidence of ischemia. Administered Medications: 09:00 Drug: NS 0.9% 500 ml Route: IV; Rate: bolus; Site: right antecubital; tp1 11:39 Follow up: IV Status: Completed infusion; IV Intake: 500ml tp1 11:50 Drug: Zofran (Ondansetron) 4 mg Route: IVP; Site: right antecubital; tp1 13:43 Follow up: Response: No adverse reaction vg1 11:53 Drug: fentaNYL (PF) 25 mcg Route: IVP; Site: right antecubital; tp1 13:43 Follow up: Response: No adverse reaction; Marked relief of symptoms vg1 13:43 Not Given (Patient Refused): fentaNYL (PF) 25 mcg IVP once vg1 Disposition Summary: 05/04/22 12:41 Discharge Ordered Location: Home elena Problem: new elena Symptoms: have improved elena Condition: Stable elena Diagnosis - Fall on same level, unspecified elena - Contusion of left shoulder elena - Unspecified injury of head, initial encounter elena - Bradycardia, unspecified elena Followup: elena - With: Private Physician - When: 2 - 3 days - Reason: Recheck today's complaints, Continuance of care, Re-evaluation by your physician Followup: elena - With: - When: 2 - 3 days - Reason: Recheck today's complaints, Re-evaluation by your physician Followup: elena - With: - When: 2 - 3 days - Reason: Recheck today's complaints, Re-evaluation by your physician Discharge Instructions: - Discharge Summary Sheet elena - Bradycardia, Adult elena - Head Injury, Adult elena - Shoulder Pain elena - Fall Prevention in the Home, Adult elena - Fall Prevention in the Home, Adult, [id number] elena - Head Injury, Adult, [id number] elena Forms: - Medication Reconciliation Form elena - Thank You Letter elena - Antibiotic Education elena - Prescription Opioid Use [facility] Prescriptions: - Tylenol 325 mg Oral Tablet - take 2 tablets by ORAL route every 6 hours as needed; 1 bottle; Refills: 0, elena Product Selection Permitted Signatures: Dispatcher [employer] Kirk Black MD MD cha Garcia, Victoria RN RN vg1 Angie Boyd RN RN tp1
--- NOTE | 2022-05-04 12:42 | ER ---
Nurse's Notes [facility] Name: Aurea Felix Age: 67 yrs Sex: Female : 1955 Arrival Date: 05/04/2022 Time: 08:07 Bed 6 Private MD: Diagnosis: Fall on same level, unspecified;Contusion of left shoulder;Unspecified injury of head, initial encounter;Bradycardia, unspecified Presentation: 05/04 08:00 Chief complaint: EMS states: toned out to [place] for a fall. stated PT rolled out of tp1 bed onto floor, PT found rolled partially under bed. PT denies hitting head or LOC.states PT is currently taking aspirin. Reports 10/10 pain to the left shoulder that does not radiated and pain to the left hip that radiates to ankle. Reports left sided weakness to the left side from previous stroke. BP 157/59, FBS 307. 08:00 Coronavirus screen: Vaccine status: Patient reports receiving the 2nd dose of the covid tp1 vaccine. Ebola Screen: Patient negative for fever greater than or equal to 101.5 degrees Fahrenheit, and additional compatible Ebola Virus Disease symptoms Patient denies exposure to infectious person. Patient denies travel to an Ebola-affected area in the 21 days before illness onset. Initial Sepsis Screen: Does the patient meet any 2 criteria? Systolic BP < 90 mmHg. No. Patient's initial sepsis screen is negative. Does the patient have a suspected source of infection? No. Patient's initial sepsis screen is negative. Risk Assessment: Do you want to hurt yourself or someone else? Patient reports no desire to harm self or others. Onset of symptoms was May 04, 2022. 08:00 Method Of Arrival: EMS: [facility] tp1 08:00 Acuity: JUAN A 3 tp1 08:00 Care prior to arrival: None. Mechanism of Injury: Fall out of bed. vg1 08:00 Trauma event details: Injury occurred in the [facility]. 1 Triage Assessment: 08:00 General: Appears in no apparent distress. comfortable, Behavior is calm, cooperative, tp1 drowsy. Pain: Complains of pain in left shoulder and left hip Pain radiates to left leg Pain currently is 10 out of 10 on a pain scale. Pain began today. EENT: No signs and/or symptoms were reported regarding the EENT system. Neuro: Yusuf Agitation-Sedation Scale (RASS): 0 - Alert and Calm Level of Consciousness is awake, alert, obeys commands, Oriented to person, place, time, situation, Denies headache. Cardiovascular: Patient's skin is warm and dry. Respiratory: Airway is patent Respiratory effort is even, unlabored. GI: Abdomen is round non-distended. : No signs and/or symptoms were reported regarding the genitourinary system. Derm: Skin is pink, warm \\T\\ dry. Musculoskeletal: pt stated left sided paralysis, left wrist is contracted, left ankle is contracted. Historical: - Allergies: 08:16 No Known Allergies; tp1 - Home Meds: 08:37 tylenol [Active]; aspirin 325 mg Oral tab 1 tab once daily [Active]; baclofen 10 mg tp1 Oral tab 1 tab 3 times per day [Active]; Buspirone Oral [Active]; docusate sodium 250 mg Oral cap 1 cap once daily [Active]; duloxetine 60 mg Oral cpDR 2 caps once daily [Active]; Gemtesa oral [Active]; Glimepiride Oral [Active]; latanoprost [Active]; Lipitor Oral [Active]; Lyrica 75 mg Oral 1 cap 3 times per day [Active]; multivitamin Oral [Active]; Largo 10-325 mg Oral tab 1 tab three times a day [Active]; omeprazole 20 mg Oral TbEC 20 mg every 8 hours [Active]; oscal [Active]; ropinrole hcl 0.25 mg 1 tab nightly [Active]; senna 8.6 mg Oral cap 2 caps two times a day [Active]; trazodone 50 mg Oral tab 1 tab at bedtime [Active]; Tricor Oral [Active]; - PMHx: 08:16 acid reflux; Diverticulitis; Hyperlipidemia; CVA; TIA; Diabetes mellitus; Osteoporosis; tp1 cranial nerve disorder; left sided weakness; restless leg syndrome; Glaucoma; cerebral infarction; Anxiety; Hypertensive disorder; GERD; Depressive disorder; - Immunization history:: Client reports receiving the 2nd dose of the Covid vaccine. - Social history:: Smoking status: Patient reports the use of cigarette tobacco products, smokes one pack cigarettes per day. - Immunization history: Last tetanus immunization: unknown. - Family history:: not pertinent. Screenin:00 Abuse screen: Denies threats or abuse. Denies injuries from another. Nutritional tp1 screening: No deficits noted. Tuberculosis screening: No symptoms or risk factors identified. Fall Risk Fall in past 12 months (25 points). Secondary diagnosis (15 points) impaired mobility, CVA, IV access (20 points). Ambulatory Aid- None/Bed Rest/Nurse Assist (0 pts). Gait- Impaired (20 pts.). Mental Status- Oriented to own ability (0 pts). Total Calhoun Fall Scale indicates High Risk Score (45 or more points). Fall prevention measures have been instituted. Side Rails Up X 2 Placed Close to Nursing Station Frequent Obs/Assessments Occuring As available patient and family educated on Fall Prevention Program and Strategies. Primary Survey: 08:00 NO uncontrolled hemorrhage observed. A: The client is awake and alert. The airway is vg1 patent. Breathing/Chest: Spontaneous respiratory effort, equal unlabored respirations, breath sounds clear bilaterally, regular pattern, symmetrical chest rise and fall. Respiratory effort: spontaneous, Breath sounds: clear. Circulation: No external hemorrhage present. Regular and strong central pulse, skin warm/dry/normal color. Disability Client is alert. Exposure/Environment: All clothing and personal items were removed. Forensic evidence collection is not deemed to be indicated at this time. Items placed in patient belonging bag. There is no evidence of uncontrolled external bleeding. pt states Left shoulder and Left hip pain. 08:20 Reassessment Alertness and Airway: Awake and alert. The airway is patent. Airway Patent vg1 Oxygen No O2 Breathing: Spontaneous respiratory effort, equal unlabored respirations, breath sounds clear bilaterally, regular pattern with symmetrical chest rise and fall. Respiratory effort Spontaneous Breath sounds Clear Circulation: No external hemorrhage noted. Regular and strong central pulse, skin warm/dry/normal color. Disability: Alert. Secondary Survey: 08:00 HEENT: No deficits noted. Head No injury/deformity. Gastrointestinal: No deficits vg1 noted. Abdomen is soft. : No deficits noted. Musculoskeletal: pt stated left sided paralysis due to hx of CVA. Assessment: 08:00 General: see triage notes . tp1 08:28 Reassessment: escorted to CT via stretcher by [facility]. tp1 08:49 Reassessment: transported back from CT via stretcher by [facility]. tp1 09:00 Reassessment: CO chest pain that "making it difficult to breath" and numbness to left tp1 leg, Left lower extremity pedal pulses palpable, no edema noted, skin pink and warm, provider notified. 10:00 Reassessment: Patient appears in no apparent distress at this time. No changes from tp1 previously documented assessment. Patient is alert, oriented x 3, equal unlabored respirations, skin warm/dry/pink. continues to CO left shoulder and left hip pain. 10:08 Reassessment: provider at bedside to assess PT. tp1 11:00 Reassessment: Patient appears in no apparent distress at this time. No changes from tp1 previously documented assessment. Patient is alert, oriented x 3, equal unlabored respirations, skin warm/dry/pink. continues to CO left shoulder and left hip pain. resting comfortably in bed. provider notified. 12:16 Reassessment: Nga ANDERSON from [facility] [phone] called for pt update. tp1 13:07 Reassessment: Nga ANDERSON from [facility] was contacted and notified of pt d/c; stated vg1 will get transportation ready for pt pickup. Vital Signs: 08:00 BP 154 / 69; Pulse 57; Resp 16; Temp 98.1; Pulse Ox 91% ; Weight 80.29 kg; Height 5 ft. tp1 1 in. (154.94 cm); Pain 10/10; 09:00 Pulse 45; tp1 09:36 BP 148 / 84; Pulse 55; Resp 16; Pulse Ox 96% on R/A; tp1 10:00 BP 166 / 92; Pulse 55; Resp 15; Pulse Ox 96% on R/A; tp1 10:30 BP 168 / 89; Pulse 52; Resp 16; Pulse Ox 96% on R/A; tp1 11:00 BP 148 / 73; Pulse 53; Resp 16; Pulse Ox 96% on R/A; tp1 11:30 BP 162 / 84; Pulse 59; Resp 17; Pulse Ox 95% on R/A; tp1 12:00 BP 126 / 93; Pulse 61; Resp 12; Pulse Ox 93% on R/A; tp1 12:30 BP 147 / 82; Pulse 55; Resp 17; Pulse Ox 95% on R/A; vg1 08:00 Body Mass Index 33.44 (80.29 kg, 154.94 cm) tp1 09:00 provider notified tp1 Jessica Coma Score: 08:00 Eye Response: spontaneous(4). Verbal Response: oriented(5). Motor Response: obeys vg1 commands(6). Total: 15. Trauma Score (Adult): 08:00 Eye Response: spontaneous(1); Verbal Response: oriented(1); Motor Response: obeys vg1 commands(2); Systolic BP: > 89 mm Hg(4); Respiratory Rate: 10 to 29 per min(4); Jessica Score: 15; Trauma Score: 12 ED Course: 08:00 Arm band placed on. tp1 08:00 Patient has correct armband on for positive identification. Bed in low position. Call tp1 light in reach. Side rails up X2. Pulse ox on. NIBP on. Warm blanket given. 08:00 Patient maintains SpO2 saturation greater than 95% on room air. vg1 08:00 Thermoregulation: warm blanket given to patient. vg1 08:07 Patient arrived in ED. tp1 08:10 Kirk Dahl MD is Attending Physician. elena 08:15 Triage completed. tp1 08:31 CT Traumagram (Head C Spine CAP wo con) In Process Unspecified. EDMS 08:32 Angie Boyd, DIRK is Primary Nurse. tp1 08:50 Inserted saline lock: 20 gauge in right antecubital area, using aseptic technique. tp1 Blood collected. 09:12 EKG done, by ED staff. tp1 09:13 night monitor on. tp1 09:52 Shoulder Left (2 View) XRAY In Process Unspecified. EDMS 09:52 Hip Left 2 View XRAY In Process Unspecified. EDMS 10:44 XRAY Chest (1 view) In Process Unspecified. EDMS 11:21 Straight cath inserted, using sterile technique, 14 Fr. Specimen obtained. 400 mL tp1 yellow colored urine. 12:41 Norman Mccormick MD is Referral Physician. elena 12:41 Jose Bansal MD is Referral Physician. elena 13:46 No provider procedures requiring assistance completed. IV discontinued, intact, vg1 bleeding controlled, No redness/swelling at site. Pressure dressing applied. Administered Medications: 09:00 Drug: NS 0.9% 500 ml Route: IV; Rate: bolus; Site: right antecubital; tp1 11:39 Follow up: IV Status: Completed infusion; IV Intake: 500ml tp1 11:50 Drug: Zofran (Ondansetron) 4 mg Route: IVP; Site: right antecubital; tp1 13:43 Follow up: Response: No adverse reaction vg1 11:53 Drug: fentaNYL (PF) 25 mcg Route: IVP; Site: right antecubital; tp1 13:43 Follow up: Response: No adverse reaction; Marked relief of symptoms vg1 13:43 Not Given (Patient Refused): fentaNYL (PF) 25 mcg IVP once vg1 Medication: 08:00 VIS not applicable for this client. tp1 Intake: 11:39 IV: 500ml; Total: 500ml. tp1 13:47 IV: 500ml (IV Fluid); Total: 1000ml. vg1 Output: 13:47 Urine: 400ml (Straight Cath); Total: 400ml. vg1 Outcome: 12:41 Discharge ordered by MD. parker 13:46 Discharged to detention. Report called to Nga ANDERSON vg1 13:46 Condition: good 13:46 Discharge instructions given to patient, detention, Instructed on discharge instructions, follow up and referral plans. medication usage, Demonstrated understanding of instructions, follow-up care, medications, Prescriptions given X 1. 13:47 Patient's length of stay was not longer than 2 hours. vg1 13:48 Patient left the ED. vg1 Signatures: Dispatcher [employer] EDMS Kirk Dahl MD MD cha Leal, Jahala, RN RN jl7 Diamond Sandhu RN RN vg1 Angie Boyd RN RN tp1 Corrections: (The following items were deleted from the chart) 09:32 08:00 Musculoskeletal: pt stated left sided paralysis, left wrist is contracted tp1 jl7 09:33 08:00 Musculoskeletal: pt stated left sided paralysis, left wrist is contracted, left jl7 ankle is contracted jl7 09:34 08:00 Musculoskeletal: pt stated left sided paralysis, left wrist is contracted jl7 tp1 10:09 08:00 General: Appears in no apparent distress. comfortable, Behavior is calm, tp1 cooperative, tp1 11:24 10:00 Reassessment: Patient appears in no apparent distress at this time. No changes tp1 from previously documented assessment. Patient is alert, oriented x 3, equal unlabored respirations, skin warm/dry/pink. tp1 11:54 11:00 Reassessment: Patient appears in no apparent distress at this time. No changes tp1 from previously documented assessment. Patient is alert, oriented x 3, equal unlabored respirations, skin warm/dry/pink. continues to CO left shoulder and left hip pain. provider notified tp1 12:09 09:36 BP 148 / 84; Pulse 55bpm; Resp 16bpm; Pulse Ox 100% RA; tp1 tp1 12:09 11:00 BP 148 / 73; Pulse 53bpm; Resp 16bpm; Pulse Ox 100% RA; tp1 tp1 12:48 12:16 Reassessment: Nga ANDERSON from [facility] called for pt update tp1 tp1
[2022-05-04 13:36] LABS: Magnesium 1.8 mg/dL (1.8-2.4); Troponin High Sensitivity 7.4 pg/mL (<58.9)
[2022-05-04 14:51] VITALS: BP 147/82; O2SAT 95
--- NOTE | 2022-05-07 05:42 | EKG ---
Test Date: 2022-05-04 Test Time: 09:10:40 Fitter Hand: JUANIS MEASUREMENT RESULTS: Intervals: Rate: 54 MS: 162 QRSD: 72 QT: 464 QTc: 440 [place]: P: 69 MS: 162 QRS: 69 T: 83 INTERPRETIVE STATEMENTS: Sinus bradycardia Otherwise normal ECG Compared to ECG 08/03/2020 18:48:38 Sinus rhythm no longer present Electronically Signed On 05-07-22 05:39:50 CDT by Jose Bansal
== END 2022-05-04 13:48 | disposition home or self-care (01) ==
LOC: ER 08:02
DX: S40.012A Contusion of left shoulder, initial encounter (principal); S09.90XA Unspecified injury of head, initial encounter; R00.1 Bradycardia, unspecified; W18.30XA Fall on same level, unspecified, initial encounter; E11.9 Type 2 diabetes mellitus without complications; I10 Essential (primary) hypertension; Z86.73 Personal history of transient ischemic attack (TIA), and cerebral infarction without residual deficits
CPT/HCPCS: 96361; 93005; 87088; 85025; 87086; 80048; 36415; 86900; 83735; 86850; 85610; 86901; 80076; 87077; 87186; 81003; 84484 ×2; 83880; 70450; 71250; 72125; 71045; 73502; 73030; 51702; 96375; 96374; 99285; J3010; J7040; J2405

== ENCOUNTER 2023-05-09 10:24 | Inpatient (IN) | payer OTHER ==
--- OUTSIDE RECORDS SUMMARY | 2023-05-09 10:27 | XMS REPORT | Continuity of Care Document ---
:1955 Author Organization [facility] t Address [address] [place] [address] Care Team Providers Name Role Phone NONSTAFF Primary Care Physician Unavailable PANDA LOPEZ Attending Clinician Unavailable PANDA LOPEZ Admitting Clinician Unavailable Payers Payer Name Policy Type Policy Number Effective Date Expiration Date Chrystal Valadez [id number] 2019 [facility] 00:00:00 Patient [facility] Medicare A & B [id number] 2010 [facility] 00:00:00 Patient Medical Center Problems Condition Condition Condition Status Onset Resolution Last Treating Co mments Source Name Details Category Date Date Treatment Clinician Date Problem Condition Active [facility] Allergies, Adverse Reactions, Alerts Allergy Allergy Status Severity Reaction(s) Onset Inactive Treating Comm ents Source Name Type Date Date Clinician No Known DA Active [facility] Social History Social Habit Start Date Stop Date Quantity Comments Source Sex Assigned At [birth year] Female [facility] 00:00:00 00:00:00 Patient Medica l Center Medications [...] Mg TAB 145 Mg TAB Hyperlipid Patient [facility] Furosemide Furosemide Yes [address] [facility] (Lasix) 20 (Lasix) 20 Chronic [facility] Mg TABLET Mg TABLET Ischemic P atient [facility] Levofloxaci Levofloxaci Yes [address] [facility] n n Diverticul [facility] itis [facility] Loratadine Loratadine Yes [address] [facility] Seasonal [facility] Allergies [facility] Metronidazo Metronidazo Yes [address] [facility] le (Flagyl) le (Flagyl) Hours for [facility] 500 Mg 500 Mg Diverticul Patie nt TABLET TABLET [facility] Omeprazole Omeprazole Yes [address] [facility] Oxybutynin Oxybutynin Yes [address] [facility] Chloride Chloride Stress [facility] (Ditropan (Ditropan Incontinen Patient Xl) 5 Mg Xl) 5 Mg ce Medical TAB.ER.24 TAB.ER.24 Cente r Potassium Potassium Yes [address] [facility] Chloride Chloride Chronic Luke s Ischemic Patient [facility] Promethazin Promethazin Yes 25 Every [...] [facility] Restless [facility] Sennosides Yes 8.[address] [...] Center Heart Rate 2020-08-09 08:49:00 89 /min [facility] Respiratory rate 2020-08-09 08:49:00 18 /min [facility] BP Systolic 2020-08-09 08:49:00 151 mm[Hg] [facility] BP Diastolic 2020-08-09 08:49:00 81 mm[Hg] [facility] Oxygen saturation by 2020-08-09 08:49:00 98 /min [facility] Pulse oximetry Patient [facility] BMI (Body Mass Index) 2020-08-04 10:44:00 36.3 kg/m2 [facility] Weight 2020-08-04 04:39:00 225 [lb_av] [facility] Procedures Procedure Date / Time Performed Performing Clinician [facility] e X-ray of chest, two 2020-08-08 00:00:00 [facility] Encounters Start End Encounter Admission Attending Care Care Encounter Source Date/Time Date/Time Type Type Clinicians Facility Department ID 2020-08-04 Inpatient [facility] [id number] [facility] 00:06:00 -[id number] [facility] 2020-08-04 2020-08-09 Discharged 1 LOPEZ, [place] [id number] [facility] 04:17:00 12:05:00 [facility]patient [facility] [address] [place] [address] Results Test Description Test Time Test Comments Results Result Comments Source Capillary blood glucose measurement by glucometer (mas s/volume) 2020-08-09 10:32:00 Test Item Value Reference Range Interpretation Comme nts Bedside Glucose (test code = 13143-4) 107 mg/dL 70-120 [facility] by glucometer (mass/volume)2020-08-09 10:32:00 Test Item Value Reference Range Interpretation Comments Bedside Glucose (test code = 107 mg/dL 70-120 67855-4) [facility] less than one hour [id number] 16:15:00 Test Item Value Reference Range Interpretation [...] EUA is revoked under 564(g) of the ACT.[facility] procedure less than one hour frnchxxf8022-27-87 16:15:00 Test Item Value Reference Range Interpretation [...] EUA is revoked under 564(g) of the ACT.[facility] 2020-08-08 11:47:00 [facility] 1955 Sex[address] F [address] FLAVIA CRAWFORD MR #: [id number] : 1955 Age/Sex: 65/F Req #: [id number] [facility] Physician: PANDA LOPEZ MD Ordered by: PANDA LOPEZ MD Report #: [id number] Location: MED/SURG3 Room/Bed: [facility] Procedure: [id number] DX/CHEST 2 VIEWS Exam Date: 12/14/20 Exam Time: 1115 REPORT STATUS: Signed EXAMINATION: CHEST 2 VIEWS INDICATION: Pneumonia COMPARISON: Chest radiograph 08/04/2020 FINDINGS: LINES/TUBES:None LUNGS:The lungs are well-inflated. No focal consolidation or pulmonary edema. PLEURA:No pleural effusion or pneumothorax. MEDIASTINUM:The cardiomediastinal silhouette appears normal in size and shape. BONES/SOFT TISSUES:No acute osseous injury. ABDOMEN:No free air under the diaphragm. IMPRESSION: No focal pneumonia or pulmonary edema. Signed by: Kristen Irby MD on 08/08/2020 11:48 AM Dictated By: KRISTEN IRBY MD 1148 Transcribed By: LUIGI on 08/08/20 1148 COPY TO: PANDA LOPEZ leukocytes automated count (number/volume)2020-08-08 05:24:00 Test Item Value Reference Range Interpretation Comments White Blood Count (test code = 9.55 10*3/uL 4.8-10.8 6690-2) [facility] count (number/volume)2020-08-08 05:24:00 Test Item Value Reference Range Interpretation Comments Red Blood Count (test code = 3.89 10*6/mL 3.6-5.1 789-8) [facility] measurement (moles/volume) 2020-08-08 05:24:00 Test Item Value Reference Range Interpretation Comments Hemoglobin (test code = 28896-6) 12.0 g/dL 12.0-16.0 [facility] hematocrit (volume fraction) 2020-08-08 05:24:00 Test Item Value Reference Range Interpretation Comments Hematocrit (test code = 4544-3) 35.8 % 34.2-44.1 [facility] mean corpuscular volume 2020-08-08 05:24:00 Test Item Value Reference Range Interpretation Comments Mean Corpuscular Volume (test code = 92.0 81-99 787-2) [facility] mean corpuscular hemoglobin (mass per erythrocyte)2020-08-08 05:24:00 Test Item Value Reference Range Interpretation Comments Mean Corpuscular Hemoglobin (test 30.8 pg 28-32 code = 785-6) [facility] mean corpuscular hemoglobin concentration measurement (mass/volume)2020-08-08 05:24:00 Test Item Value Reference Range Interpretation Comments Mean Corpuscular Hemoglobin Concent 33.5 g/dL 31-35 (test code = 786-4) [facility] HospitalRDW RcwPq-Vmo3647-11-14 05:24:00 Test Item Value Reference Range Interpretation Comments Red Cell Distribution Width (test code 14.3 % 11.7-14.4 = 21678-5) [facility]Autom[facility] platelet count (count/volume) 2020-08-08 05:24:00 Test Item Value Reference Range Interpretation Comments Platelet Count (test code = 298 10*3/uL 140-360 777-3) [facility] blood segmented neutrophil count as percentage of total ghmubulvdp0466-33-04 05:24:00 Test Item Value Reference Range Interpretation Comments Neutrophils (%) (Auto) (test code = 66.9 % 38.7-80.0 90119-5) [facility]Autom[facility] lymphocyte count as percentage ot total pxsguoxsns9851-05-30 05:24:00 Test Item Value Reference Range Interpretation Comments Lymphocytes (%) (Auto) (test code = 22.2 % 18.0-39.1 736-9) [facility]Autom[facility] monocyte count as percentage of total okuspihzdc9402-68-22 05:24:00 Test Item Value Reference Range Interpretation Comments Monocytes (%) (Auto) (test code = 8.6 % 4.4-11.3 5905-5) [facility]Autom[facility] eosinophil count as percentage of total fhliaevlly4656-62-90 05:24:00 Test Item Value Reference Range Interpretation Comments Eosinophils (%) (Auto) (test code = 1.2 % 0.0-6.0 713-8) [facility]Autom[facility] basophil count as percentage of total emzcziikzs1421-77-88 05:24:00 Test Item Value Reference Range Interpretation Comments Basophils (%) (Auto) (test code = 0.3 % 0.0-1.0 706-2) [facility] HospitalFluoroscopic procedure less than one hour aexgtkbw7334-11-75 05:24:00 Test Item Value Reference Range Interpretation Comments IM GRANULOCYTES % (test code = IM 0.8 % 0.0-1.0 GRANULOCYTES %) [facility]Autom[facility] blood neutrophil rhvit2373-10-66 05:24:00 Test Item Value Reference Range Interpretation Comments Neutrophils # (Auto) (test code = 6.4 2.1-6.9 751-8) [facility] lymphocytes count (number/volume) 2020-08-08 05:24:00 Test Item Value Reference Range Interpretation Comments Lymphocytes # (Auto) (test code = 2.1 1.0-3.2 37108-4) [facility] monocytes automated count (number/volume)2020-08-08 05:24:00 Test Item Value Reference Range Interpretation Comments Monocytes # (Auto) (test code = 742-7) 0.8 0.2-0.8 [facility]Autom[facility] blood eosinophil mmtrf3540-04-74 05:24:00 Test Item Value Reference Range Interpretation Comments Eosinophils # (Auto) (test code = 0.1 0.0-0.4 711-2) [facility]Autom[facility] basophil count (count/volume) 2020-08-08 05:24:00 Test Item Value Reference Range Interpretation Comments Basophils # (Auto) (test code = 704-7) 0.0 0.0-0.1 [facility]Fluoroscopic procedure less than one hour dtdhneun1157-12-26 05:24:00 Test Item Value Reference Range Interpretation Comments Absolute Immature Granulocyte 0.08 10*3/uL 0-0.1 (auto (test code = Absolute Immature Granulocyte (auto) [facility] leukocytes automated count (number/volume)2020-08-08 05:24:00 Test Item Value Reference Range Interpretation Comments White Blood Count (test code = 9.55 10*3/uL 4.8-10.8 6690-2) [facility] erythrocytes automated count (number/volume)2020-08-08 05:24:00 Test Item Value Reference Range Interpretation Comments Red Blood Count (test code = 3.89 10*6/mL 3.6-5.1 789-8) [facility] (moles/volume) 2020-08-08 05:24:00 Test Item Value Reference Range Interpretation Comments Hemoglobin (test code = 89879-8) 12.0 g/dL 12.0-16.0 [facility]Autom[facility] blood hematocrit (volume fraction) 2020-08-08 05:24:00 Test Item Value Reference Range Interpretation Comments Hematocrit (test code = 4544-3) 35.8 % 34.2-44.1 [facility] erythrocyte mean corpuscular volume 2020-08-08 05:24:00 Test Item Value Reference Range Interpretation Comments Mean Corpuscular Volume (test code = 92.0 81-99 787-2) [facility]Autom[facility] mean corpuscular hemoglobin (mass per erythrocyte)2020-08-08 05:24:00 Test Item Value Reference Range Interpretation Comments Mean Corpuscular Hemoglobin (test 30.8 pg 28-32 code = 785-6) [facility]Autom[facility] erythrocyte mean corpuscular hemoglobin concentration measurement (mass/volume)2020-08-08 05:24:00 Test Item Value Reference Range Interpretation Comments Mean Corpuscular Hemoglobin Concent 33.5 g/dL 31-35 (test code = 786-4) [facility] HospitalRDW ZlfGm-Ofw9224-47-14 05:24:00 Test Item Value Reference Range Interpretation Comments Red Cell Distribution Width (test code 14.3 % 11.7-14.4 = 33457-2) [facility]Automated blood platelet count (count/volume) 2020-08-08 05:24:00 Test Item Value Reference Range Interpretation Comments Platelet Count (test code = 298 10*3/uL 140-360 777-3) [facility]Aut[facility]ed [facility] segmented neutrophil count as percentage of total qkxkbcjram3906-38-16 05:24:00 Test Item Value Reference Range Interpretation Comments Neutrophils (%) (Auto) (test code = 66.9 % 38.7-80.0 92552-1) [facility]Automated blood lymphocyte count as percentage ot total ohdbgfkwkq6676-05-30 05:24:00 Test Item Value Reference Range Interpretation Comments Lymphocytes (%) (Auto) (test code = 22.2 % 18.0-39.1 736-9) [facility]Automated blood monocyte count as percentage of total bottqpitcw0402-15-27 05:24:00 Test Item Value Reference Range Interpretation Comments Monocytes (%) (Auto) (test code = 8.6 % 4.4-11.3 5905-5) [facility]Automated blood eosinophil count as percentage of total xchhksdgqv5611-99-10 05:24:00 Test Item Value Reference Range Interpretation Comments Eosinophils (%) (Auto) (test code = 1.2 % 0.0-6.0 713-8) [facility] HospitalAutomated blood basophil count as percentage of total xhycmkzvxz8264-92-43 05:24:00 Test Item Value Reference Range Interpretation Comments Basophils (%) (Auto) (test code = 0.3 % 0.0-1.0 706-2) [facility] HospitalFluoroscopic procedure less than one hour rmgyfsbj5088-50-90 05:24:00 Test Item Value Reference Range Interpretation Comments IM GRANULOCYTES % (test code = IM 0.8 % 0.0-1.0 GRANULOCYTES %) [facility]Automated blood neutrophil cgmky3671-53-65 05:24:00 Test Item Value Reference Range Interpretation Comments Neutrophils # (Auto) (test code = 6.4 2.1-6.9 751-8) [facility] lymphocytes count (number/volume) 2020-08-08 05:24:00 Test Item Value Reference Range Interpretation Comments Lymphocytes # (Auto) (test code = 2.1 1.0-3.2 95140-7) [facility]Blood monocytes automated count (number/volume)2020-08-08 05:24:00 Test Item Value Reference Range Interpretation Comments Monocytes # (Auto) (test code = 742-7) 0.8 0.2-0.8 [facility] HospitalAutomated blood eosinophil hxxti1380-03-05 05:24:00 Test Item Value Reference Range Interpretation Comments Eosinophils # (Auto) (test code = 0.1 0.0-0.4 711-2) [facility]Automated blood basophil count (count/volume) 2020-08-08 05:24:00 Test Item Value Reference Range Interpretation Comments Basophils # (Auto) (test code = 704-7) 0.0 0.0-0.1 [facility] HospitalFluoroscopic procedure less than one hour cresrwed3037-18-89 05:24:00 Test Item Value Reference Range Interpretation Comments Absolute Immature Granulocyte 0.08 10*3/uL 0-0.1 (auto (test code = Absolute Immature Granulocyte (auto) [facility] sodium measurement (moles/volume)2020-08-07 06:10:00 Test Item Value Reference Range Interpretation Comments Sodium Level (test code = 2951-2) 141 mmol/L 136-145 [facility] plasma potassium measurement (moles/volume)2020-08-07 06:10:00 Test Item Value Reference Range Interpretation Comments Potassium Level (test code = 3.8 mmol/L 3.5-5.1 2823-3) [facility] plasma chloride measurement (moles/volume)2020-08-07 06:10:00 Test Item Value Reference Range Interpretation Comments Chloride Level (test code = 111 mmol/L 98-107 5-0) [facility] plasma carbon dioxide, total measurement (moles/volume)2020-08-07 06:10:00 Test Item Value Reference Range Interpretation Comments Carbon Dioxide Level (test code = 23 mmol/L -29 2027-9) [facility] plasma anion ohi0043-73-68 06:10:00 Test Item Value Reference Range Interpretation Comments Anion Gap (test code = 47232-1) 10.8 mmol/L 8-16 [facility] plasma urea nitrogen measurement (mass/volume)2020-08-07 06:10:00 Test Item Value Reference Range Interpretation Comments Blood Urea Nitrogen (test code = 7 mg/dL 7-26 3094-0) [facility] plasma creatinine measurement (mass/volume)2020-08-07 06:10:00 Test Item Value Reference Range Interpretation Comments Creatinine (test code = 2160-0) 0.66 mg/dL 0.57-1.11 [facility] plasma urea nitrogen/creatinine mass rnuzk6153-23-78 06:10:00 Test Item Value Reference Range Interpretation Comments BUN/Creatinine Ratio (test code = 11 6-25 3097-3) [facility] HospitalEstimated glomerular filtration rate (GFR) slbcgfnnlojhe6753-55-45 06:10:00 Test Item Value Reference Range Interpretation Comments Estimat Glomerular Filtration > 60 mL/min >60 Rate (test code = 140143039) Ranges were taken from the National Kidney Disease Education Program and the National Kidney Foundation literature.Reference ranges:60 or greater: Abmszi15- 59 (for 3 consecutive months): Chronic kidneydisease 15 or less: Kidney failure [facility] HospitalGlucose mrqhtnnibji5959-58-58 06:10:00 Test Item Value Reference Range Interpretation Comments Glucose Level (test code = JHQ3958) 118 mg/dL 74-118 [facility] plasma calcium measurement (mass/volume)2020-08-07 06:10:00 Test Item Value Reference Range Interpretation Comments Calcium Level (test code = 09901-0) 8.7 mg/dL 8.4-10.2 [facility] HospitalFluoroscopic procedure less than one hour vadacuuw3366-42-95 06:10:00 Test Item Value Reference Range Interpretation Comments Lactic Acid Level (test code = 0.7 mmol/L 0.5-2.0 Lactic Acid Level) [facility] plasma sodium measurement (moles/volume)2020-08-07 06:10:00 Test Item Value Reference Range Interpretation Comments Sodium Level (test code = 2951-2) 141 mmol/L 136-145 [facility] plasma potassium measurement (moles/volume)2020-08-07 06:10:00 Test Item Value Reference Range Interpretation Comments Potassium Level (test code = 3.8 mmol/L 3.5-5.1 2823-3) [facility] plasma chloride measurement (moles/volume)2020-08-07 06:10:00 Test Item Value Reference Range Interpretation Comments Chloride Level (test code = 111 mmol/L 98-107 2075-0) [facility] plasma carbon dioxide, total measurement (moles/volume)2020-08-07 06:10:00 Test Item Value Reference Range Interpretation Comments Carbon Dioxide Level (test code = 23 mmol/L 2028-04) [facility] plasma anion cin9033-54-22 06:10:00 Test Item Value Reference Range Interpretation Comments Anion Gap (test code = 94804-5) 10.8 mmol/L 8-16 [facility] plasma urea nitrogen measurement (mass/volume)2020-08-07 06:10:00 Test Item Value Reference Range Interpretation Comments Blood Urea Nitrogen (test code = 7 mg/dL 03-20 3094-0) [facility] creatinine measurement (mass/volume)2020-08-07 06:10:00 Test Item Value Reference Range Interpretation Comments Creatinine (test code = 2160-0) 0.66 mg/dL 0.57-1.11 [facility] plasma urea nitrogen/creatinine mass lhiuk7277-63-43 06:10:00 Test Item Value Reference Range Interpretation Comments BUN/Creatinine Ratio (test code = 11 02-17 3097-3) [facility] HospitalEstimated glomerular filtration rate (GFR) gzamlmjjsxkqw3142-65-09 06:10:00 Test Item Value Reference Range Interpretation Comments Estimat Glomerular Filtration > 60 mL/min >60 Rate (test code = 161428598) Ranges were taken from the National Kidney Disease Education Program and the National Kidney Foundation literature.Reference ranges:60 or greater: Jwxsbj52- 59 (for 3 consecutive months): Chronic kidneydisease 15 or less: Kidney failure [facility] HospitalGlucose rcpsuyuvvvv6335-25-50 06:10:00 Test Item Value Reference Range Interpretation Comments Glucose Level (test code = WDB5315) 118 mg/dL 74-118 [facility] plasma calcium measurement (mass/volume)2020-08-07 06:10:00 Test Item Value Reference Range Interpretation Comments Calcium Level (test code = 43085-0) 8.7 mg/dL 8.4-10.2 [facility] HospitalFluoroscopic procedure less than one hour bnsdvmds7279-87-53 06:10:00 Test Item Value Reference Range Interpretation Comments Lactic Acid Level (test code = 0.7 mmol/L 0.5-2.0 Lactic Acid Level) [facility] HospitalClostridium difficile A and B toxin assay 2020-08-06 17:26:00 Test Item Value Reference Range Interpretation Comments Clostridium Difficile Toxin A & B NEGATIVE NEGATIVE (test code = 940471525) Testing on stool aspirate specimens is outside regional engineer claims since specimen type not validatedon this assay.[facility] Clostridium difficile A and B toxin iuruj9402-64-75 17:26:00 Test Item Value Reference Range Interpretation Comments Clostridium Difficile Toxin A & B NEGATIVE NEGATIVE (test code = 346747187) Testing on stool aspirate specimens is outside regional engineer claims since specimen type not validatedon this assay.[facility] Blood kkcsmcg0825-85-37 16:40:00 Test Item Value Reference Range Interpretation Comments Blood Culture (test NO GROWTH AFTER 48 code = 20211890) HOURS [facility] HospitalBlood tynwtba3629-32-19 16:40:00 Test Item Value Reference Range Interpretation Comments Blood Culture (test NO GROWTH AFTER 5 code = 43231916) DAYS, FINAL REPORT [facility] plasma magnesium measurement (mass/volume)2020-08-06 15:10:00 Test Item Value Reference Range Interpretation Comments Magnesium Level (test code = 1.4 mg/dL 1.3-2.1 62416-9) [facility] plasma magnesium measurement (mass/volume)2020-08-06 15:10:00 Test Item Value Reference Range Interpretation Comments Magnesium Level (test code = 1.4 mg/dL 1.3-2.1 04614-2) [facility] HospitalCHEST SINGLE (PORTABLE)2020-08-04 21:56:00 [facility] 1955 Sex: F [facility] [address] [address] Patient Name: FLAVIA CRAWFORD MR #: [id number] : 1955 Age/Sex: 65/F Req #: [id number] Adm Physician: PANDA LOPEZ MD Ordered by: PANDA LOPEZ MD Report #: [id number] Location: [facility] Room/Bed: [facility] Procedure: [id number] DX/CHEST SINGLE (PORTABLE) Exam Date: 08/04/20 Exam [...]
[2023-05-09] MEDS ORDERED: ONDANSETRON 4 MG/2 ML VIAL ONE (10:46)
[2023-05-09] MEDS ORDERED: MORPHINE 4 MG/ML SYR ONE (10:46)
--- NOTE | 2023-05-09 11:11 | RAD REPORT ---
EXAM DESCRIPTION: CT - CTHCSPWOC - 05/09/2023 10:46 am CLINICAL HISTORY: Trauma, head and neck injury. TRAUMA COMPARISON: Head C Spine Mpr Wo Con dated 08/03/2020; Soft Tissue Neck W/Contr dated 11/06/2017 TECHNIQUE: Axial thin cut noncontrast CT images of the head were obtained. Axial thin cut noncontrast CT images of the cervical spine were obtained. Multiplanar reformatted images were generated and reviewed. All CT scans are performed using dose optimization technique as appropriate and may include automated exposure control or mA/KV adjustment according to patient size. FINDINGS: CT HEAD WITHOUT CONTRAST: No acute hemorrhage, hydrocephalus or extra-axial collection is identified.Stable right frontal encep halomalacia.No areas of brain edema or midline shift. The paranasal sinuses and mastoids are clear.The calvarium is intact. CT CERVICAL SPINE WITHOUT CONTRAST: Straightening of normal cervical lordosis which may be positional or secondary to muscle spasm. Mild degenerative changes of the endplates and facet joints with hsrg-bs-rjfzqpqh disc height loss at C3-4 up to moderate right neural foraminal narrowing at C3-4 and to lesser degree at C4-5. No fracture or subluxation.No prevertebral soft tissues swelling is identified. IMPRESSION: No acute traumatic intracranial or cervical spine findings. Cervical spine degenerative changes as above. Stable right frontal encephalomalacia.
--- NOTE | 2023-05-09 11:15 | RAD REPORT ---
EXAM DESCRIPTION: CT - Pelvis Wo Cont - 05/09/2023 10:46 am CLINICAL HISTORY: FALL, HIP PAIN COMPARISON: No comparisons TECHNIQUE: Thin cut axial CT imaging of the pelvis was performed without IV contrast. Multiplanar re formats were generated and reviewed. All CT scans are performed using dose optimization technique as appropriate and may include automated exposure control or mA/KV adjustment according to patient size. FINDINGS: Comminuted and impacted left hip intertrochanteric fracture. Displaced components of the f racture involves the base of the lesser trochanter. Fracture line courses obliquely along the proxima l femoral shaft. Visualized aspects of the right kidney demonstrate mild prominence of the renal pelvis, which could b e an extrarenal pelvis, and small nonobstructing renal calculi largest measuring 4 millimeter. No hyd roureter. No dilated bowel loops or bowel wall thickening is visualized. No free air, free fluid or inflammator y stranding. No hernia, mass or bulky lymphadenopathy. The urinary bladder is without significant fin ding. Mild bilateral hip joint degenerative changes. Mild degenerative changes of the lower lumbar spine. IMPRESSION: Comminuted, impacted, left hip intertrochanteric fracture as above. Incidentally noted nonobstructing right renal calculi. Probable right extrarenal pelvis.
--- NOTE | 2023-05-09 11:18 | RAD REPORT ---
EXAM DESCRIPTION: RAD - Hip Left 2 View - 05/09/2023 10:59 am CLINICAL HISTORY: PAIN COMPARISON: Hip Left 2 View dated 05/04/2022 TECHNIQUE: Left hip, AP and frogleg views of the left hip. FINDINGS: Comminuted left hip intertrochanteric fracture. Surrounding soft tissue swelling. No dislo cation. IMPRESSION: Comminuted left hip intertrochanteric fracture.
[2023-05-09 12:25] LABS: Absolute Lymphocytes (CBC) 1.6 K/uL (0.7-4.9); Hematocrit 38.6 % (36.0-45.0); Lymphocytes % 10.1 % (15.3-44.8); MCV 90.2 fL (80-100); MPV 7.9 fL (7.6-11.3); Platelets 391 thou/uL (152-406); RBC Red Blood Cell Count 4.27 M/uL (3.86-4.86)
[2023-05-09 12:43] LABS: Albumin 3.6 g/dL (3.4-5.0); Bilirubin Total 0.2 mg/dL (0.2-1.0); Potassium 4.2 mEq/L (3.5-5.1); Protein, Total 7.8 g/dL (6.4-8.2)
--- NOTE | 2023-05-09 12:46 | ER ---
Nurse's Notes [facility] Name: Aurea Felix Age: 68 yrs Sex: Female : 1955 Arrival Date: 05/09/2023 Time: 10:24 Bed 3 Private MD: Diagnosis: Intertrochanteric left hip fracture Presentation: 05/09 10:27 Chief complaint: EMS states: toned out to [place] for fall. C/O pain to left hip. Pt ld1 fell from standing into bed, hit floor. Denies LOC, not on blood thinners. Coronavirus screen: At this time, the client does not indicate any symptoms associated with coronavirus-19. Ebola Screen: No symptoms or risks identified at this time. Initial Sepsis Screen: Does the patient meet any 2 criteria? No. Patient's initial sepsis screen is negative. Does the patient have a suspected source of infection? No. Patient's initial sepsis screen is negative. Risk Assessment: Do you want to hurt yourself or someone else? Patient reports no desire to harm self or others. Onset of symptoms was May 09, 2023. 10:27 Method Of Arrival: EMS: [facility] ld1 10:27 Acuity: JUAN A 3 ld1 Triage Assessment: 10:31 General: Appears in no apparent distress. uncomfortable, Behavior is cooperative, ld1 appropriate for age, anxious. Pain: Complains of pain in left hip Pain does not radiate. Pain currently is 8 out of 10 on a pain scale. Quality of pain is described as throbbing. EENT: No signs and/or symptoms were reported regarding the EENT system. Neuro: Level of Consciousness is awake, alert, obeys commands, Oriented to person, place, time, situation. Cardiovascular: Capillary refill < 3 seconds Patient's skin is warm and dry. Rhythm is sinus rhythm. Respiratory: Airway is patent Respiratory effort is even, unlabored. GI: Abdomen is round non-distended. : No signs and/or symptoms were reported regarding the genitourinary system. Derm: No signs and/or symptoms reported regarding the dermatologic system. Musculoskeletal: No signs and/or symptoms reported regarding the musculoskeletal system. Historical: - Allergies: 10:30 No Known Allergies; ld1 - PMHx: 10:30 acid reflux; Anxiety; Cerebral infarction; cranial nerve disorder; CVA; depressive ld1 disorder; diabetes mellitus; Diverticulitis; GERD; Glaucoma; Hyperlipidemia; Hypertensive disorder; LEFT SIDED WEAKNESS; Osteoporosis; restless leg syndrome; TIA; - Immunization history:: Adult Immunizations up to date. - Social history:: Smoking status: Patient denies any tobacco usage or history of. - Family history:: not pertinent. Screenin:32 [facility] ED Fall Risk Assessment (Adult) History of falling in the last 3 months, ld1 including since admission Yes- single mechanical fall (1 pt). Abuse screen: Denies threats or abuse. Denies injuries from another. Nutritional screening: No deficits noted. Tuberculosis screening: No symptoms or risk factors identified. Assessment: 10:32 Reassessment: See triage assessment. Pt to CT. ld1 12:54 Reassessment: Patient appears in no apparent distress at this time. Patient and/or iw family updated on plan of care and expected duration. Pain level reassessed. 14:07 Reassessment: No changes from previously documented assessment. Patient and/or family ld1 updated on plan of care and expected duration. Pain level reassessed. Patient is alert, oriented x 3, equal unlabored respirations, skin warm/dry/pink. Vital Signs: 10:27 BP 151 / 99; Pulse 79; Resp 19; Temp 98.3(O); Pulse Ox 99% on R/A; Weight 78.02 kg; ld1 Height 5 ft. 3 in. ; Pain 10; 14:07 BP 135 / 49; Pulse 89; Resp 18; Pulse Ox 95% on R/A; ld1 10:27 Body Mass Index 30.47 (78.02 kg, 160.02 cm) ld1 10:27 Pain Scale: Adult ld1 ED Course: 10:27 Patient arrived in ED. ld1 10:27 Bernardo Orellana MD is Attending Physician. rt 10:30 Triage completed. ld1 10:31 Arm band placed on right wrist. ld1 10:32 Patient has correct armband on for positive identification. Placed in gown. Bed in low ld1 position. Call light in reach. Side rails up X2. equipment monitor phototypesetting on. Pulse ox on. NIBP on. Door closed. Noise minimized. Warm blanket given. 10:32 No provider procedures requiring assistance completed. ld1 10:48 CT Head C Spine In Process Unspecified. EDMS 10:48 Pelvis Wo Cont In Process Unspecified. EDMS 11:01 Hip Left 2 View XRAY In Process Unspecified. EDMS 12:44 Gómez Andrews MD is Hospitalizing Provider. rt 12:46 Hospitalizing Provider role handed off by Gómez Andrews MD rt 12:46 Mike Rodriguez MD is Hospitalizing Provider. rt 13:31 Chest Single View XRAY In Process Unspecified. EDMS 16:24 Patient admitted, IV remains in place. ld1 Administered Medications: 12:20 Drug: morphine IVP or IV 4 mg Route: IVP; Infused Over: 4 mins; Site: right antecubital;ld1 12:20 Drug: Ondansetron IVP 4 mg Route: IVP; Site: right antecubital; ld1 Medication: 10:32 VIS not applicable for this client. ld1 Outcome: 12:46 Decision to Hospitalize by Provider. rt 16:23 Admitted to Med/surg accompanied by tech, via stretcher, room 205, Report called to ldKendell Calderón RN 16:23 Condition: unchanged 16:23 Instructed on the need for admit. 16:36 Patient left the ED. iw Signatures: Dispatcher [employer] Thea Hill RN RN iw Germania Angulo RN RN ld1 Bernardo Orellana MD MD rt
--- NOTE | 2023-05-09 12:46 | EDPHYS ---
Physician Documentation [facility] Name: Aurea Felix Age: 68 yrs Sex: Female : 1955 Arrival Date: 05/09/2023 Time: 10:24 Bed 3 Private MD: ED Physician Bernardo Orellana HPI: 05/09 10:41 This 68 yrs old Female presents to ER via EMS with complaints of Fall Injury, Hip Pain. rt 10:44 Patient presents to the ED with a fall. The patient reportedly was transferring from rt her wheelchair to the bed when she lost her balance, she hit her left hip onto the side rail, reportedly hit her head on the ground, denies loss of consciousness. Does report a pain to the left hip, worse with movement. Is aching nature, nonradiating. Denies other acute complaints at this time. Symptoms are moderate severity, no other aggravating or alleviating factors.. Historical: - Allergies: 10:30 No Known Allergies; ld1 - PMHx: 10:30 acid reflux; Anxiety; Cerebral infarction; cranial nerve disorder; CVA; depressive ld1 disorder; diabetes mellitus; Diverticulitis; GERD; Glaucoma; Hyperlipidemia; Hypertensive disorder; LEFT SIDED WEAKNESS; Osteoporosis; restless leg syndrome; TIA; - Immunization history:: Adult Immunizations up to date. - Social history:: Smoking status: Patient denies any tobacco usage or history of. - Family history:: not pertinent. ROS: 10:44 Constitutional: Negative for fever, chills, and weight loss, Cardiovascular: Negative rt for chest pain, palpitations, and edema, Respiratory: Negative for shortness of breath, cough, wheezing, and pleuritic chest pain, Abdomen/GI: Negative for abdominal pain, nausea, vomiting, diarrhea, and constipation, Skin: Negative for injury, rash, and discoloration. 10:44 MS/extremity: Positive for injury or acute deformity, pain. Exam: 10:44 Constitutional: This is a well developed, well nourished patient who is awake, alert, rt and in no acute distress. Head/Face: Normocephalic, atraumatic. Chest/axilla: Normal chest wall appearance and motion. Nontender with no deformity. No lesions are appreciated. Cardiovascular: Regular rate and rhythm with a normal S1 and S2. No gallops, murmurs, or rubs. Normal PMI, no JVD. No pulse deficits. Respiratory: Lungs have equal breath sounds bilaterally, clear to auscultation and percussion. No rales, rhonchi or wheezes noted. No increased work of breathing, no retractions or nasal flaring. Abdomen/GI: Soft, non-tender, with normal bowel sounds. No distension or tympany. No guarding or rebound. No evidence of tenderness throughout. Skin: Warm, dry with normal turgor. Normal color with no rashes, no lesions, and no evidence of cellulitis. Psych: Awake, alert, with orientation to person, place and time. Behavior, mood, and affect are within normal limits. 10:44 Musculoskeletal/extremity: Tenderness to the left hip, range of motion limited due to pain, pulses, motor, sensation intact. 12:43 ECG was reviewed by the Attending Physician. rt Vital Signs: 10:27 BP 151 / 99; Pulse 79; Resp 19; Temp 98.3(O); Pulse Ox 99% on R/A; Weight 78.02 kg; ld1 Height 5 ft. 3 in. ; Pain 10/10; 14:07 BP 135 / 49; Pulse 89; Resp 18; Pulse Ox 95% on R/A; ld1 10:27 Body Mass Index 30.47 (78.02 kg, 160.02 cm) ld1 10:27 Pain Scale: Adult ld1 MDM: 10:27 Patient medically screened. rt 12:35 Differential diagnosis: Fracture, contusion, intracranial hemorrhage, closed head rt injury. Data reviewed: vital signs, nurses notes, radiologic studies. Consideration of Admission/Observation Patient was admitted/placed on observation. Management of patient was discussed with the following: Hospitalist: Agrees to admit. Optical Advisor: Discussed with orthopedic surgeon on-call, states the patient is okay to keep here.. I considered the following discharge prescriptions or medication management in the emergency department Medications were administered in the Emergency Department. See MAR. Independent interpretation of the following test(s) in the Emergency Department X-Ray: My interpretation is Intertrochanteric fracture seen on interpretation of the x-ray images. Care significantly affected by the following chronic conditions: Prior CVA. Counseling: I had a detailed discussion with the patient and/or guardian regarding the historical points, exam findings, and any diagnostic results supporting the discharge/admit diagnosis, radiology results, the need for further work-up and treatment in the hospital. Response to treatment: the patient's symptoms have markedly improved after treatment. 05/09 11:53 Order name: CBC with Diff; Complete Time: 15:01 rt 05/09 11:53 Order name: CMP; Complete Time: 12:44 rt 05/09 11:53 Order name: PT-INR; Complete Time: 12:44 rt 05/09 11:53 Order name: Ptt, Activated; Complete Time: 12:44 rt 05/09 14:59 Order name: CBC Smear Scan; Complete Time: 15:01 EDMS 05/09 10:27 Order name: Hip Left 2 View XRAY; Complete Time: 11:19 rt 05/09 10:27 Order name: CT Head C Spine; Complete Time: 11:15 rt 05/09 10:42 Order name: Pelvis Wo Cont; Complete Time: 11:18 EDMS 05/09 11:53 Order name: Chest Single View XRAY; Complete Time: 13:43 rt 05/09 11:53 Order name: EKG; Complete Time: 11:54 rt 05/09 11:53 Order name: EKG - Nurse/Tech; Complete Time: 12:57 rt EC:43 Rate is 83 beats/min. Rhythm is regular, Normal Sinus Rhythm with No ectopy. QRS Clune rt is Normal. MD interval is normal. QRS interval is normal. QT interval is normal. No Q waves. T waves are Normal. No ST changes noted. Administered Medications: 12:20 Drug: morphine IVP or IV 4 mg Route: IVP; Infused Over: 4 mins; Site: right antecubital;ld1 12:20 Drug: Ondansetron IVP 4 mg Route: IVP; Site: right antecubital; ld1 Disposition Summary: 05/09/23 12:46 Hospitalization Ordered Hospitalization Status: Inpatient Admission rt Provider: Mike Rodriguez rt [facility] rt Condition: Stable rt Problem: new rt Symptoms: are unchanged rt Bed/Room Type: Standard rt Room Assignment: 205(05/09/23 15:49) rd2 Diagnosis - Intertrochanteric left hip fracture rt Forms: - Medication Reconciliation Form rt - SBAR form rt - Leadership Thank You Letter rt Signatures: Dispatcher [employer] Germania Madsen, RN RN ld1 Bernardo Orellana MD MD rt Alondra Ni RN RN rd2 Corrections: (The following items were deleted from the chart) 15:49 12:46 rt rd2
--- NOTE | 2023-05-09 13:36 | RAD REPORT ---
EXAM DESCRIPTION: RAD - Chest Single View - 05/09/2023 1:30 pm CLINICAL HISTORY: preop Chest pain. COMPARISON: Chest Single View dated 05/04/2022; Chest Single View dated 08/03/2020; Chest Single View d ated 07/30/2019; Chest Single View dated 04/02/2016 FINDINGS: Portable technique limits examination quality. Exam is very limited by patient positioning. There is presumed soft tissue artifact present and skin fold projecting over the left hemithorax. Lungs appear grossly acute infiltrate heart is upper limit normal in size.
--- NOTE | 2023-05-09 14:53 | P.HP ---
Certification for Inpatient Patient admitted to: Inpatient With expected LOS: >2 Midnights Patient will require the following post-hospital care: None Practitioner: I am a practitioner with admitting privileges, knowledge of patient current condition, hospital course, and medical plan of care. Services: Services provided to patient in accordance with Admission requirements found in Title 42 Section 412.3 of the Code of Federal Regulations Patient History Date of Service: 05/09/23 History of Present Illness: 68-year-old female presents to the ED via EMS with complaints of fall injury, hip pain. Patient uses a wheelchair regularly and can usually transfer independently. Patient fell while trying to get in bed via the left side which is her weakest side and "found herself on the floor". Patient hit her head on the ground. Patient denies loss of consciousness and does report pain to the left hip worse with movement. Patient has a past medical history of gastric reflux anxiety, cerebral infarct with left-sided weakness, depressive disorder, diabetes type 2, diverticulitis, glaucoma, hyperlipidemia, hypertensive disorder, osteoporosis, restless leg syndrome. ED course: Pelvic CT and hip x-ray reveals comminuted and impacted left hip intratrochanter fracture, CT head negative, chest x-ray is limited due to patient's positioning on right side. WBC 16, PT/INR 11/1, BUN/creatinine 17/1.06, serum glucose 204. Patient will be admitted for orthopedic surgery tomorrow (05/09) and further treatment. Allergies NKDA Allergy (Uncoded 07/10/15 14:08) Unknown No Known Allergies Allergy (Uncoded 04/02/16 21:12) Unknown Home Medications: Atorvastatin Calcium [Lipitor*] 20 mg PO BEDTIME 04/06/14 Ca/D3/Mag Ox/Zinc/Residential Property Tax Appraiser/Solitario/Bor [Calcium 600-D3 Plus Caplet] 1 tab PO DAILY 04/06/14 Docusate [Colace Cap*] 200 mg PO DAILY 04/06/14 Duloxetine HCl [Cymbalta] 120 mg PO BEDTIME 04/06/14 Hydrocodone/Acetaminophen [Vicodin 5-325 mg Tablet] 1 each PO TID 04/06/14 Pantoprazole Sodium [Protonix] 40 mg PO BID 04/06/14 Pregabalin [Lyrica] 100 mg PO TID 04/06/14 Ropinirole HCl 1 mg PO BEDTIME PRN PRN 04/06/14 Trazodone HCl [Desyrel] 300 mg PO BEDTIME 04/06/14 Aspirin Chewable [Aspirin Chewable*] 81 mg PO DAILY 05/09/23 Baclofen 10 mg PO Q8H 05/09/23 Bupropion *Xl* [Wellbutrin XL] 300 mg PO DAILY 05/09/23 Buspirone HCl [Buspar] 30 mg PO BID 05/09/23 Fenofibrate [Tricor] 145 mg PO BEDTIME 05/09/23 Glimepiride [Amaryl] 4 mg PO DAILY 05/09/23 Latanoprost Ophth [Xalatan 0.005%*] 1 gtt RIGHT EYE BEDTIME 05/09/23 Metformin HCl [Glucophage] 500 mg PO BIDWM 05/09/23 Mirabegron [Myrbetriq] 50 mg PO DAILY 05/09/23 - Past Medical/Surgical History Diabetic: No -: CVA let side paraylized -: high cholesterol -: Acid Reflux -: Hyperlipidemia -: Anxiety -: Depression -: [place] -: c section -: fabrizio -: hyst -: Rt carotid artery surgery - Family History Mother -: Heart disease, Hypertension, GI disease, Diabetes, Cancer, Kidney disease Notes: colon ca Father -: Heart disease, Hypertension - Social History Alcohol use: Yes CD- Drugs: No Caffeine use: Yes Review of Systems General: Unremarkable Eyes: Unremarkable ENT: Unremarkable Respiratory: Unremarkable Cardiovascular: Unremarkable Gastrointestinal: Unremarkable Genitourinary: Unremarkable Musculoskeletal: Leg Pain (left hip pain), As per HPI Integumentary: Unremarkable Neurological: Unremarkable Physical Examination - Physical Exam General: Alert, Oriented x3, Acute distress HEENT: Atraumatic, Normocephalic, PERRLA Neck: Supple, 2+ carotid pulse no bruit, JVD not distended Respiratory: Clear to auscultation bilaterally, Normal air movement Cardiovascular: No edema, Normal pulses, Regular rate/rhythm, Normal S1 S2 Capillary refill: <2 Seconds Gastrointestinal: Normal bowel sounds, Soft and benign, Non-distended Musculoskeletal: No clubbing, No swelling, No erythema Integumentary: No rashes, No breakdown Neurological: Normal speech External genitalia: No edema - Studies Laboratory Data (last 24 hrs) 09/05/09/23 05/09/23 12:15 12:15 12:15 WBC 16.00 H Hgb 12.9 Hct 38.6 Plt Count 391 PT 11.0 INR 1.00 APTT 30.8 Sodium 139 Potassium 4.2 BUN 17 Creatinine 1.06 H Glucose 204 H Total Bilirubin 0.2 AST 26 ALT 35 Alkaline Phosphatase 55 Assessment and Plan - Plan Assessment and Plan Acute left hip fracture Trauma fall during tranfer from wheelchair -consult Dr. Mccormick -surgery 05/10 around noon -NPO at midnight -morphine with zofran for pain Leukocytosis -WBC 16 -likely reactive to injury -monitor in AM labs Diabetes mellitus -accucheck and SSI ACHS JULIUS -creatinine 1.06 -gentle IVF Hx HTN -restart home medications -monitor Q 4h HLD -restart home medications DVT ppx: SDC until ortho allows lovenox Full code no concentrated sweets diet/ NPO after midnight - Advance Directives Does patient have a Living Will: No Does patient have a Durable POA for Healthcare: No
[2023-05-09 14:59] LABS: Blood Morphology Comment NOT SEEN (NOT SEEN); Platelet Estimate ADEQ; White Blood Cell Scan OK (OK)
[2023-05-09 15:22] VITALS: BMI 29.5
[2023-05-09] MEDS ORDERED: MORPHINE 2 MG/ML SYR ONE (16:39)
[2023-05-09] MEDS ORDERED: ONDANSETRON 4 MG/2 ML VIAL IV PRN (17:42)
[2023-05-09] MEDS ORDERED: GLUCAGON 1 MG/VIAL IM PRN (17:54)
[2023-05-09] MEDS ORDERED: D10W 250 ML BAG IV PRN (17:54)
--- NOTE | 2023-05-09 18:11 | P.CNS ---
Date of Consult: 05/09/23 Reason for Consult: Left hip fracture Chief Complaint: Left hip fracture History of Present Illness: Patient was performing a transfer from bed to chair at [facility] at 9 AM today when she slipped and fell she localized pain to her left hip the pain is 10/10 today she had a stroke 15 years ago and has posturing of her left arm she lays on her right side with her right hip flexed she is nonambulatory but has been able to do transfers she just started working on physical therapy to try to get stronger she is not taking any anticoagulants but she does take an aspirin a day and her last 1 was this morning she did eat dinner tonight Allergies NKDA Allergy (Uncoded 07/10/15 14:08) Unknown No Known Allergies Allergy (Uncoded 04/02/16 21:12) Unknown Home Medications: Atorvastatin Calcium [Lipitor*] 20 mg PO BEDTIME 04/06/14 Ca/D3/Mag Ox/Zinc/Shore Worker/Solitario/Bor [Calcium 600-D3 Plus Caplet] 1 tab PO DAILY 04/06/14 Docusate [Colace Cap*] 200 mg PO DAILY 04/06/14 Duloxetine HCl [Cymbalta] 120 mg PO BEDTIME 04/06/14 Hydrocodone/Acetaminophen [Vicodin 5-325 mg Tablet] 1 each PO TID 04/06/14 Pantoprazole Sodium [Protonix] 40 mg PO BID 04/06/14 Pregabalin [Lyrica] 100 mg PO TID 04/06/14 Ropinirole HCl 1 mg PO BEDTIME PRN PRN 04/06/14 Trazodone HCl [Desyrel] 300 mg PO BEDTIME 04/06/14 Aspirin Chewable [Aspirin Chewable*] 81 mg PO DAILY 05/09/23 Baclofen 10 mg PO Q8H 05/09/23 Bupropion *Xl* [Wellbutrin XL] 300 mg PO DAILY 05/09/23 Buspirone HCl [Buspar] 30 mg PO BID 05/09/23 Fenofibrate [Tricor] 145 mg PO BEDTIME 05/09/23 Glimepiride [Amaryl] 4 mg PO DAILY 05/09/23 Latanoprost Ophth [Xalatan 0.005%*] 1 gtt RIGHT EYE BEDTIME 05/09/23 Metformin HCl [Glucophage] 500 mg PO BIDWM 05/09/23 Mirabegron [Myrbetriq] 50 mg PO DAILY 05/09/23 - Past Medical/Surgical History Diabetic: No -: CVA let side paraylized -: high cholesterol -: Acid Reflux -: Hyperlipidemia -: Anxiety -: Depression -: [place] -: c section -: fabrizio -: hyst -: Rt carotid artery surgery - Family History Mother Medical History: Heart disease, Hypertension, GI disease, Diabetes, Cancer, Kidney disease Notes: colon ca Father Medical History: Heart disease, Hypertension - Social History Smoking Status: Current every day smoker Alcohol use: Yes CD- Drugs: No Caffeine use: Yes Review of Systems 10-point ROS is otherwise unremarkable Physical Examination Temp Pulse Resp BP Pulse Ox 98.3 F 89 18 135/49 L 05/09/23 10:27 05/09/23 14:07 05/09/23 14:07 05/09/23 14:07 General: Oriented x3 HEENT: Normocephalic Respiratory: Normal air movement Musculoskeletal: Other (Pain localized to her left hip intertrochanteric region she lays postured on her right side with her left hip up and her left leg turned in she reports this is her standard resting posture since her stroke) Laboratory Data (last 24 hrs) 05/09/23 05/09/23 05/09/23 12:15 12:15 12:15 WBC 16.00 H Hgb 12.9 Hct 38.6 Plt Count 391 PT 11.0 INR 1.00 APTT 30.8 Sodium 139 Potassium 4.2 BUN 17 Creatinine 1.06 H Glucose 204 H Total Bilirubin 0.2 AST 26 ALT 35 Alkaline Phosphatase 55 Imagings Data: Name: FLAVIA CRAWFORD Acct Number: [id number] : 1955 Age: 68 Sex: F Unit Number: [id number] Ord Phys: Bernardo Orellana Luxor Jazmin Dr: NONE Status: REG ER ER Exam Date: 05/09/23 Reason for Exam: PAIN Report Status: Signed EXAM DESCRIPTION: RAD - Hip Left 2 View - 05/09/2023 10:59 am CLINICAL HISTORY: PAIN COMPARISON: Hip Left 2 View dated 05/04/2022 TECHNIQUE: Left hip, AP and frogleg views of the left hip. FINDINGS: Comminuted left hip intertrochanteric fracture. Surrounding soft tissue swelling. No dislocation. IMPRESSION: Comminuted left hip intertrochanteric fracture. Dictated By: Alfonso Bryant MD 05/09/23 1118 Signed By: Alfonso Bryant MD 05/09/23 111 - Problems (1) Intertrochanteric fracture of left hip Current Visit: Yes Status: Acute Qualifiers: Encounter type: initial encounter Fracture type: closed Fracture alignment: displaced Qualified Code(s): S72.142A - Displaced intertrochanteric fracture of left femur, initial encounter for closed fracture Conclusions/Impression: Displaced intertrochanteric fracture left hip patient was consented for a left hip intramedullary rodding, we discussed the risks and benefits of the procedure to include fat embolism lengthening shortening and standard surgical risks she will need cardiac clearance and evaluation for fitness for surgery if she is cleared for surgery by noon tomorrow we can do the procedure tomorrow at noon.
[2023-05-09] MEDS: MORPHINE 2 MG/ML SYR IV PRN ×2 (18:25→22:38)
[2023-05-09] MEDS: NA CHLORIDE 0.9% 1,000 ML IV SCH (19:00)
[2023-05-09] MEDS: INSULIN -REGULAR HUMAN 50 UNIT/0.5 ML ML SQ SCH (20:47)
[2023-05-09] MEDS ORDERED: ROPINIROLE HCL 0.25 MG TAB PO PRN (20:55)
[2023-05-09] MEDS: BACLOFEN 10 MG TAB PO SCH (21:00)
[2023-05-09] MEDS: PREGABALIN 50 MG CAP PO SCH (21:00)
[2023-05-09] MEDS: LATANOPROST 0.005% 2.5ML OPTH OPTH SCH (21:00)
[2023-05-09] MEDS: TRAZODONE 150 MG TAB PO SCH (21:00)
[2023-05-09] MEDS: BUSPIRONE HCL 5 MG TABLET PO SCH (21:00)
[2023-05-09] MEDS: ATORVASTATIN 20 MG TAB PO SCH (21:00)
[2023-05-09] MEDS ORDERED: FENOFIBRATE 160 MG TAB PO SCH (21:00)
[2023-05-09] MEDS: PANTOPRAZOLE 40MG TABLET PO SCH (21:00)
[2023-05-09] MEDS: DULOXETINE 30 MG CAP PO SCH (21:00)
[2023-05-09] MEDS: HYDROCODONE/APAP 5/325 MG TAB PO SCH (21:00)
[2023-05-10] MEDS: MORPHINE 2 MG/ML SYR IV PRN ×3 (03:53→18:26)
[2023-05-10 04:01] LABS: Absolute Lymphocytes (CBC) 2.4 K/uL (0.7-4.9); Hematocrit 37.2 % (36.0-45.0); Lymphocytes % 18.9 % (15.3-44.8); MCV 89.2 fL (80-100); MPV 7.7 fL (7.6-11.3); Platelets 364 thou/uL (152-406); RBC Red Blood Cell Count 4.17 M/uL (3.86-4.86)
[2023-05-10 04:12] LABS: Magnesium 1.7 mg/dL (1.6-2.4); Phosphorus 2.5 mg/dL (2.5-4.9)
[2023-05-10] MEDS: INSULIN -REGULAR HUMAN 50 UNIT/0.5 ML ML SQ SCH ×4 (07:30→20:58)
[2023-05-10] MEDS: PANTOPRAZOLE 40MG TABLET PO SCH ×2 (07:30→16:24)
[2023-05-10] MEDS ORDERED: MAGNESIUM SULFATE 1 gm IVPB 1 GM/100 ML BAG IV ONE ×2 (07:33→09:00)
[2023-05-10] MEDS: METFORMIN HCL 500 MG TAB PO SCH ×2 (08:00→16:24)
[2023-05-10] MEDS ORDERED: POTASS/SODIUM PHOSPHATE 1 PKT POWD.PACK PO SCH (08:00)
[2023-05-10] MEDS: NA CHLORIDE 0.9% 1,000 ML IV SCH (08:20)
[2023-05-10] MEDS: ASPIRIN 81 MG CHEWABLE TABLET PO SCH (08:30)
[2023-05-10] MEDS: GLIMEPIRIDE 2 MG TABLET PO SCH (08:30)
[2023-05-10] MEDS: BUPROPION HCL XL 150 MG TAB PO SCH (08:31)
[2023-05-10] MEDS: DOCUSATE NA 100 MG CAP PO SCH (08:31)
[2023-05-10] MEDS: HYDROCODONE/APAP 5/325 MG TAB PO SCH (08:31)
[2023-05-10] MEDS: MIRABEGRON 50 MG PO SCH (08:31)
[2023-05-10] MEDS: BUSPIRONE HCL 5 MG TABLET PO SCH ×2 (08:31→20:36)
[2023-05-10] MEDS: PREGABALIN 50 MG CAP PO SCH ×3 (08:31→20:36)
[2023-05-10] MEDS: BACLOFEN 10 MG TAB PO SCH ×3 (08:31→20:37)
[2023-05-10] MEDS ORDERED: NA CHLORIDE 0.9% 1,000 ML ONE (11:20)
[2023-05-10] MEDS: FENTANYL CITR 100 MCG/2 ML ONE ×2 (11:21→11:55)
[2023-05-10] MEDS ORDERED: FENTANYL CITR 100 MCG/2 ML ONE (11:35)
[2023-05-10] MEDS ORDERED: MIDAZOLAM HCL 2 MG/2 ML INJ ONE (11:36)
[2023-05-10] MEDS ORDERED: ONDANSETRON 4 MG/2 ML VIAL ONE (11:36)
[2023-05-10] MEDS ORDERED: LIDOCAINE 2% MPF 5 ML VIAL ONE (11:36)
[2023-05-10] MEDS ORDERED: propofoL 200 MG/20 ML VIAL IV ONE (11:36)
[2023-05-10] MEDS ORDERED: CEFAZOLIN SODIUM 2 GM/VIAL ONE (12:00)
[2023-05-10] MEDS ORDERED: TRANEXAMIC ACID 1,000 MG/10 ML VIAL IV ONE (12:01)
[2023-05-10] MEDS ORDERED: HYDRALAZINE HCL 20 MG/ML VIAL ONE (12:33)
[2023-05-10] MEDS ORDERED: ONDANSETRON 4 MG (ODT) TAB PO PRN (12:57)
--- NOTE | 2023-05-10 13:12 | P.PN ---
Subjective Date of Service: 05/10/23 Chief Complaint: Left hip fracture Patient still complaining of severe pain in the left hip seen by orthopedic surgery Review of Systems Unremarkable Physical Examination - Vital Signs Temperature: 97 F Blood Pressure: 142/71 Pulse: 83 Respirations: 18 Pulse Ox (%): 91 - Physical Exam General: Alert, Severe distress Respiratory: Clear to auscultation bilaterally Cardiovascular: No edema Gastrointestinal: Normal bowel sounds - Studies Laboratory Data (last 24 hrs) 05/09/23 12:15 WBC 16.00 H Hgb 12.9 Hct 38.6 Plt Count 391 Assessment And Plan - Current Problems (Diagnosis) (1) Intertrochanteric fracture of left hip Current Visit: Yes Status: Acute Plan: 68 years of age admitted with intertrochanteric fracture of the left hip no obvious precipitating factor denies any syncopal episode or chest pain has been scheduled for surgery we will plan for more pain relief prior history of cardiac or pulmonary disorders patient is a smoker cleared for surgery Labs reviewed white count is mildly elevated x-ray reports reviewed Qualifiers: Encounter type: initial encounter Fracture type: closed Fracture align ment: displaced Qualified Code(s): S72.142A - Displaced intertrochanteric fracture of left femur, initial encounter for closed fracture
--- NOTE | 2023-05-10 13:16 | RAD REPORT ---
EXAM DESCRIPTION: RAD - Fluoroscopy <1 Hour - 05/10/2023 12:56 pm CLINICAL HISTORY: Hip fracture FINDINGS: Thirteen intraoperative fluoroscopic images obtained. Fluoroscopy time 1.5 minutes Compression screw and intramedullary lauren has been placed into the left femur affixing a fracture. The surgery performed by Dr. Malin
[2023-05-10] MEDS: MORPHINE 4 MG/ML SYR ONE ×4 (13:24→13:48)
--- NOTE | 2023-05-10 13:39 | OP ---
Surgeon: Norman Malin MD Brim Molder: Kendall. Preoperative Diagnosis: Left intertrochanteric hip fracture. Postoperative Diagnosis: Left intertrochanteric hip fracture. Procedure Performed: Intramedullary rodding, left intertrochanteric hip fracture. Complications: None. Disposition: To recovery room stable. Estimated Blood Loss: Minimal. Operative Report In Detail: Patient was taken to the operative suite, placed in supine position, ind uced anesthesia. Incision made over the tip of the greater trochanter. The awl was utilized to crea te an entry portal. Single stage reaming for a 9 x 130 nail was placed. Biplanar radiography verifi ed placement of a 95 mm lag screw. Distal interlocking was performed with a 32 mm screw. Excellent reduction was realized at the completion of the procedure. Patient tolerated the procedure well. Le ss than 50 cc of blood was lost. Patient should be in the recovery room shortly. ROSETTA/COURTNEY Voice ID: [id number] Report ID: [id number]
--- NOTE | 2023-05-10 14:08 | RAD REPORT ---
EXAM DESCRIPTION: RAD - Pelvis - 05/10/2023 1:34 pm CLINICAL HISTORY: Left femoral fracture FINDINGS: Intramedullary lauren and compression screw affix a left femoral fracture in good position No dislocation
[2023-05-10] MEDS: NACHLORIDE 0.45% 1,000 ML IV SCH (15:21)
--- NOTE | 2023-05-10 16:35 | EKG ---
Test Date: 2023-05-09 Test Time: 12:41:21 Outpatient Dietitian: ROSIE MEASUREMENT RESULTS: Intervals: Rate: 83 PA: 158 QRSD: 74 QT: 382 QTc: 448 [place]: P: 72 PA: 158 QRS: 69 T: 89 INTERPRETIVE STATEMENTS: Normal sinus rhythm Normal ECG Compared to ECG 05/04/2022 09:10:40 Sinus bradycardia no longer present Electronically Signed On 05-10-23 16:32:14 CDT by Santhosh Caro
[2023-05-10] MEDS: ATORVASTATIN 20 MG TAB PO SCH (20:36)
[2023-05-10] MEDS: DULOXETINE 30 MG CAP PO SCH (20:38)
[2023-05-10] MEDS: FENOFIBRATE 160 MG TAB PO SCH (20:38)
[2023-05-10] MEDS: CEFAZOLIN 1 GM in NA CHLORIDE 0.9% 50 ML IVPB SCH (20:39)
[2023-05-10] MEDS: HYDROCODONE/APAP 5/325 MG TAB PO PRN (20:42)
[2023-05-10] MEDS: TRAZODONE 150 MG TAB PO SCH (20:53)
[2023-05-10] MEDS: LATANOPROST 0.005% 2.5ML OPTH OPTH SCH (21:00)
[2023-05-11 03:14] LABS: Absolute Lymphocytes (CBC) 2.3 K/uL (0.7-4.9); Hematocrit 34.6 % (36.0-45.0); Lymphocytes % 20.2 % (15.3-44.8); MCV 89.9 fL (80-100); MPV 8.1 fL (7.6-11.3); Platelets 348 thou/uL (152-406); RBC Red Blood Cell Count 3.84 M/uL (3.86-4.86)
[2023-05-11 03:30] LABS: Magnesium 1.9 mg/dL (1.6-2.4); Phosphorus 2.8 mg/dL (2.5-4.9); Potassium 3.9 mEq/L (3.5-5.1)
[2023-05-11] MEDS: HYDROCODONE/APAP 5/325 MG TAB PO PRN ×2 (03:48→13:32)
[2023-05-11] MEDS: CEFAZOLIN 1 GM in NA CHLORIDE 0.9% 50 ML IVPB SCH (03:49)
[2023-05-11] MEDS: INSULIN -REGULAR HUMAN 50 UNIT/0.5 ML ML SQ SCH ×4 (07:30→21:00)
[2023-05-11] MEDS: MIRABEGRON 50 MG PO SCH (08:48)
[2023-05-11] MEDS: GLIMEPIRIDE 2 MG TABLET PO SCH (09:02)
[2023-05-11] MEDS: PANTOPRAZOLE 40MG TABLET PO SCH ×2 (09:02→16:24)
[2023-05-11] MEDS: METFORMIN HCL 500 MG TAB PO SCH ×2 (09:02→16:24)
[2023-05-11] MEDS: PREGABALIN 50 MG CAP PO SCH ×3 (09:03→21:13)
[2023-05-11] MEDS: BUSPIRONE HCL 5 MG TABLET PO SCH ×2 (09:03→21:12)
[2023-05-11] MEDS: DOCUSATE NA 100 MG CAP PO SCH (09:03)
[2023-05-11] MEDS: BACLOFEN 10 MG TAB PO SCH ×3 (09:03→21:13)
[2023-05-11] MEDS: ASPIRIN 81 MG CHEWABLE TABLET PO SCH (09:03)
[2023-05-11] MEDS: BUPROPION HCL XL 150 MG TAB PO SCH (09:04)
[2023-05-11] MEDS: MORPHINE 2 MG/ML SYR IV PRN ×3 (10:03→18:24)
--- NOTE | 2023-05-11 10:25 | P.PN ---
Subjective Date of Service: 05/11/23 Chief Complaint: Left hip fracture Subjective: No new changes (Difficulty transferring to bedside chair due to pain) Review of Systems 10-point ROS is otherwise unremarkable Physical Examination - Vital Signs Temperature: 97.7 F Blood Pressure: 125/70 Pulse: 86 Respirations: 17 Pulse Ox (%): 94 - Physical Exam Musculoskeletal: Other (Dressings clean dry intact neurovascular function intact) Assessment And Plan - Current Problems (Diagnosis) (1) Intertrochanteric fracture of left hip Current Visit: Yes Status: Acute Qualifiers: Encounter type: initial encounter Fracture type: closed Fracture alignment: displaced Qualified Code(s): S72.142A - Displaced intertrochanteric fracture of left femur, initial encounter for closed fracture - Plan When she is safe and stable she can go back to the facility that she came from with touchdown weightbearing with walker and therapy support only on the left leg such that if there was an egg in the shoe you do not break the egg she has only been able to do transfers for the last 15 years she can go back to that baseline she has weakness on the left side so has difficulty bearing weight on that side, she will follow-up in the office of [facility] orthopedics [place] on 35 and 288 2 weeks postop with x-rays from the facility that she is staying in she will need to have DVT prophylaxis for 28 days postop aspirin 325 mg twice daily is adequate unless she was on a blood thinner otherwise she will need pain control Discharge Plan: LTAC (She can return to the facility that she came from when she is safe and stable for 15 years she has only been able to do transfers from bed to chair she is weak on her left side so she cannot bear weight on that side anyway it should be touchdown weightbearing only with the left leg for 6 weeks posto)
--- NOTE | 2023-05-11 11:16 | P.DS ---
Admission Date: 05/09/23 Discharge Date: 05/11/23 Disposition: TRANSFER TO [facility] Discharge Condition: FAIR Reason for Admission: Left hip fracture - Problems (1) Intertrochanteric fracture of left hip Current Visit: Yes Status: Acute Qualifiers: Encounter type: initial encounter Fracture type: closed Fracture alignment: displaced Qualified Code(s): S72.142A - Displaced intertrochanteric fracture of left femur, initial encounter for closed fracture Brief History of Present Illness: Patient is 68 years of age admitted for left intertrochanteric fracture Hospital Course: Patient was admitted was operated today was doing fairly well pain had reduced in by orthopedics discharge instructions as below When she is safe and stable she can go back to the facility that she came from with touchdown weightbearing with walker and therapy support only on the left leg such that if there was an egg in the shoe you do not break the egg she has only been able to do transfers for the last 15 years she can go back to that baseline she has weakness on the left side so has difficulty bearing weight on that side, she will follow-up in the office of [facility] orthoped[facility] [place] on 35 and 288 2 weeks postop with x-rays from the facility that she is staying in she will need to have DVT prophylaxis for 28 days postop aspirin 325 mg twice daily is adequate unless she was on a blood thinner otherwise she will need pain control Discharge Plan: LTAC (She can return to the facility that she came from when she is safe and stable for 15 years she has only been able to do transfers from bed to chair she is weak on her left side so she cannot bear weight on that side anyway it should be touchdown weightbearing only with the left leg for 6 weeks posto) Patient to take aspirin for DVT prophylaxis resume all her home medications seeing home tomorrow also provide pain medications son at the bedside able to be discharged back patient's vital signs stable chest clear no other complaints pain has improved Vital Signs/Physical Exam: Temp Pulse Resp BP Pulse Ox 97.7 F 86 17 125/70 94 05/11/23 10:25 05/11/23 10:25 05/11/23 10:25 05/11/23 10:25 05/11/23 10:25 Laboratory Data at Discharge: WBC 11.50 thou/uL (4.3-10.9) H 05/11/23 02:42 Hgb 11.7 g/dL (12.0-15.0) L D 05/11/23 02:42 Hct 34.6 % (36.0-45.0) L 05/11/23 02:42 Plt Count 348 thou/uL (152-406) 05/11/23 02:42 PT 11.0 SECONDS (9.5-12.5) 05/09/23 12:15 INR 1.00 05/09/23 12:15 APTT 30.8 SECONDS (24.3-36.9) 05/09/23 12:15 Sodium 140 mEq/L (136-145) 05/11/23 02:42 Potassium 3.9 mEq/L (3.5-5.1) 05/11/23 02:42 BUN 18 mg/dL (7-18) 05/11/23 02:42 Creatinine 0.98 mg/dL (0.55-1.02) 05/11/23 02:42 Glucose 186 mg/dL (74-106) H 05/11/23 02:42 Phosphorus 2.8 mg/dL (2.5-4.9) 05/11/23 02:42 Magnesium 1.9 mg/dL (1.6-2.4) 05/11/23 02:42 Total Bilirubin 0.2 mg/dL (0.2-1.0) 05/09/23 12:15 AST 26 U/L (15-37) 05/09/23 12:15 ALT 35 U/L (13-56) 05/09/23 12:15 Alkaline Phosphatase 55 U/L (45-117) 05/09/23 12:15 Home Medications: Atorvastatin Calcium [Lipitor*] 20 mg PO BEDTIME 04/06/14 Ca/D3/Mag Ox/Zinc/Neon Light Installer/Solitario/Bor [Calcium 600-D3 Plus Caplet] 1 tab PO DAILY 04/06/14 Docusate [Colace Cap*] 200 mg PO DAILY 04/06/14 Duloxetine HCl [Cymbalta] 120 mg PO BEDTIME 04/06/14 Hydrocodone/Acetaminophen [Vicodin 5-325 mg Tablet] 1 each PO TID 04/06/14 Pantoprazole Sodium [Protonix] 40 mg PO BID 04/06/14 Pregabalin [Lyrica] 100 mg PO TID 04/06/14 Ropinirole HCl 1 mg PO BEDTIME PRN PRN 04/06/14 Trazodone HCl [Desyrel] 300 mg PO BEDTIME 04/06/14 Aspirin Chewable [Aspirin Chewable*] 81 mg PO DAILY 05/09/23 Baclofen 10 mg PO Q8H 05/09/23 Bupropion *Xl* [Wellbutrin XL*] 300 mg PO DAILY 05/09/23 Buspirone HCl [Buspar*] 30 mg PO BID 05/09/23 Fenofibrate [Tricor*] 145 mg PO BEDTIME 05/09/23 Glimepiride [Amaryl*] 4 mg PO DAILY 05/09/23 Latanoprost Ophth [Xalatan 0.005%*] 1 gtt RIGHT EYE BEDTIME 05/09/23 Metformin HCl [Glucophage*] 500 mg PO BIDWM 05/09/23 Mirabegron [Myrbetriq] 50 mg PO DAILY 05/09/23 Physician Discharge Instructions: Please see discharge insructions from Orthopedics When she is safe and stable she can go back to the facility that she came from with touchdown weightbearing with walker and therapy support only on the left leg such that if there was an egg in the shoe you do not break the egg she has only been able to do transfers for the last 15 years she can go back to that baseline she has weakness on the left side so has difficulty bearing weight on that side, she will follow-up in the office of [facility] orthopedics [place] on 35 and 288 2 weeks postop with x-rays from the facility that she is staying in she will need to have DVT prophylaxis for 28 days postop aspirin 325 mg twice daily is adequate unless she was on a blood thinner otherwise she will need pain control Discharge Plan: LTAC (She can return to the facility that she came from when she is safe and stable for 15 years she has only been able to do transfers from bed to chair she is weak on her left side so she cannot bear weight on that side anyway it should be touchdown weightbearing only with the left leg for 6 weeks posto) Followup: NONE,NONE [Primary Care Provider] -
[2023-05-11] MEDS: ENOXAPARIN 30 MG/0.3 ML SQ SCH ×2 (14:24→21:14)
[2023-05-11] MEDS: LATANOPROST 0.005% 2.5ML OPTH OPTH SCH (21:00)
[2023-05-11] MEDS: TRAZODONE 150 MG TAB PO SCH (21:13)
[2023-05-11] MEDS: ATORVASTATIN 20 MG TAB PO SCH (21:13)
[2023-05-11] MEDS: DULOXETINE 30 MG CAP PO SCH (21:13)
[2023-05-11] MEDS: FENOFIBRATE 160 MG TAB PO SCH (21:13)
[2023-05-12] MEDS: NACHLORIDE 0.45% 1,000 ML IV SCH (00:23)
[2023-05-12 03:41] LABS: Absolute Lymphocytes (CBC) 2.7 K/uL (0.7-4.9); Hematocrit 30.1 % (36.0-45.0); Lymphocytes % 27.6 % (15.3-44.8); MCV 89.9 fL (80-100); MPV 8.2 fL (7.6-11.3); Platelets 291 thou/uL (152-406); RBC Red Blood Cell Count 3.35 M/uL (3.86-4.86)
[2023-05-12 04:00] LABS: Potassium 3.6 mEq/L (3.5-5.1)
[2023-05-12 04:20] LABS: Phosphorus 1.4 mg/dL (2.5-4.9)
[2023-05-12] MEDS: POTASS/SODIUM PHOSPHATE 1 PKT POWD.PACK PO SCH ×3 (05:02→06:45)
[2023-05-12] MEDS: INSULIN -REGULAR HUMAN 50 UNIT/0.5 ML ML SQ SCH ×2 (07:30→11:30)
[2023-05-12] MEDS: ENOXAPARIN 30 MG/0.3 ML SQ SCH (08:33)
[2023-05-12] MEDS: DOCUSATE NA 100 MG CAP PO SCH (08:33)
[2023-05-12] MEDS: BUPROPION HCL XL 150 MG TAB PO SCH (08:34)
[2023-05-12] MEDS: PANTOPRAZOLE 40MG TABLET PO SCH (08:34)
[2023-05-12] MEDS: MIRABEGRON 50 MG PO SCH (08:34)
[2023-05-12] MEDS: BUSPIRONE HCL 5 MG TABLET PO SCH (08:34)
[2023-05-12] MEDS: PREGABALIN 50 MG CAP PO SCH (08:34)
[2023-05-12] MEDS: BACLOFEN 10 MG TAB PO SCH (08:34)
[2023-05-12] MEDS: METFORMIN HCL 500 MG TAB PO SCH (08:34)
[2023-05-12] MEDS: GLIMEPIRIDE 2 MG TABLET PO SCH (08:34)
[2023-05-12] MEDS: ASPIRIN 81 MG CHEWABLE TABLET PO SCH (08:34)
[2023-05-12 09:34] VITALS: O2SAT 90
--- NOTE | 2023-05-12 10:24 | P.PN ---
Date of Service: 05/12/23 Patient is 68 years of age was discharged yesterday still Complaining of Some Pain in Her Left Hips after the Surgery She Was Kept Here for 1 More Day Today She Is Doing Much Better and Has Lives in Assisted Living Has Pain Medication at Home white count is normal I am not sure why phosphatase decreased was normal before patient is stable condition to be discharged vital signs stable
--- NOTE | 2023-05-12 10:38 | P.PN ---
Subjective Date of Service: 05/12/23 Chief Complaint: Left hip fracture Subjective: Tolerating diet, Improving, Working w/ PT, Doing well (ready fro disposition from ortho standpoint) Physical Examination - Vital Signs Temperature: 98.2 F Blood Pressure: 137/79 Pulse: 71 Respirations: 16 Pulse Ox (%): 90
[2023-05-12 13:14] VITALS: BP 134/76; TEMP 98.3
== END 2023-05-12 13:43 | DRG 481 ==
LOC: ER 10:24 → ERHOLD 14:39 → 2ND 16:17
PROVIDERS: ADMIT Internal Medicine Sleep Medicine; ATTEND Internal Medicine Sleep Medicine
PROC: 0QH736Z Insertion of Intramedullary Internal Fixation Device into Left Upper Femur, Percutaneous Approach (ICD-10-PCS; principal; 2023-05-10 11:30)
DX: S72.142A Displaced intertrochanteric fracture of left femur, initial encounter for closed fracture (principal); N17.9 Acute kidney failure, unspecified; K21.9 Gastro-esophageal reflux disease without esophagitis; E11.9 Type 2 diabetes mellitus without complications; G25.81 Restless legs syndrome; E78.00 Pure hypercholesterolemia, unspecified; M81.0 Age-related osteoporosis without current pathological fracture; D72.829 Elevated white blood cell count, unspecified; Z79.82 Long term (current) use of aspirin; Z90.49 Acquired absence of other specified parts of digestive tract; Z79.84 Long term (current) use of oral hypoglycemic drugs; Z79.899 Other long term (current) drug therapy; W05.0XXA Fall from non-moving wheelchair, initial encounter; Y92.092 Bedroom in other non-institutional residence as the place of occurrence of the external cause; Y93.89 Activity, other specified
CPT/HCPCS: 36415; 70450; 71045; 72125; 72170; 72192; 76000; 80048; 80053; 82947; 83735; 84100; 85025; 85610; 85730; 93005; 96374; 96375; 97161; 97530; 99285; J0360; J0690; J1650; J2001; J2250; J2270; J2405; J2704; J3010; J3475; J7030

== ENCOUNTER 2025-06-05 16:28 | Emergency (ER) | payer OTHER, MEDICAID ==
--- OUTSIDE RECORDS SUMMARY | 2025-06-05 16:33 | XMS REPORT | Continuity of Care Document ---
Author Name Unknown Address [address] [facility] [address] [place] [address] [facility] [place] Address [address] [facility] [address] [place] [address] Care Team Providers Care Private Branch Exchange Operator Name Role Phone Pcp, Patient Does Not Have A Primary Care Physic cintia [facility], [facility] Attending Clinician Unavailable CASSY YOON Attending Clinician Unavail able Cassy Yoon MD Attending Clinician YASMANY HOLLAND Attending Clinician Unavailable NIKI TAO Attending Clinician Unabreana wayne Doctor Unassigned, [place] Attending Clinician U Sugey Lewis MD Attending Clinician SUGEY FARLEY Attending Clinician UnavailSUGEY Arguello Attending Clinician UnavailPANDA Garcia Attending Clinician Unavailable JEFFERSON DENNY Admitting Clinician Unavailable PANDA LOPEZ Admitting Clinician Unavailable Payers Payer Name Policy Type Policy Number Effective Date Expirati on Date Source [facility] MEDICARE ADVANTAGE Medicare [id number] 2025 00:00:00 [facility] STAR PLUS Medicaid [id number] 2024 00:00:00 [facility] CONNECTED [facility] [id number] 2025 00:00:00 [facility] [employer] [facility] [id number] 2019 00:00:00 [facility] Medicare A & B [id number] 2010 00:00:00 [facility] Problems Condition Name Condition Details Condition Category Status Onset Date Resolution Date Last Treatment Date Treating Clinician Comments Source Bilateral carotid artery stenosis Bilateral carotid artery stenosis Disease Active 05-12 00:00: 00 Tanner Jacobson Hallucinat ions Hallucinat ions Disease Active 05-12 00:00: 00 Tanner Jacobson Type 2 diabetes mellitus Type 2 diabetes mellitus Disease Active 05-12 00:00: 00 Tanner Jacobson 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) Disease Active 05-12 00:00: 00 Tanner Jacobson TIA (transient ischemic attack) TIA (transient ischemic attack) Disease Active 03-14 00:00: 00 Tanner Jacobson Problem Condition Active [facility] Fall Fall Disease Resolve d 05-12 00:00: 00 2025-05-12 00:00:00 2025-05-12 10:49:18 Tanner Jacobson Intertroch anteric fracture of left hip Intertroch anteric fracture of left hip Disease Resolve d 05-12 00:00: 00 2025-05-12 00:00:00 2025-05-12 10:49:18 Tanner Jacobson Weakness of left leg Weakness of left leg Disease Resolve d 05-12 00:00: 00 2025-05-12 00:00:00 2025-05-12 10:49:18 Tanner Jacobson Intertroch anteric fracture of left hip Intertroch anteric fracture of left hip Disease Resolve d 05-12 00:00: 00 2025-05-12 00:00:00 2025-05-12 10:49:18 Tanner Jacobson Chest pain Chest pain Disease Resolve d 04-03 00:00: 00 2025-05-12 00:00:00 2025-05-12 10:49:18 Tanner Jacobson Allergies, Adverse Reactions, Alerts Allergy Name Allergy Type Status Severity Reaction(s) Onset Date Inactive Date Treating Clinician Comments Source NO KNOWN ALLERGIE S Drug Class Active [facility] No Known Allergie s DA Active [facility] Social History Social Habit Start Date Stop Date Quantity Comments Source Gender identity 2023-11-17 04:29:54 Identifies as female gender (finding) [facility] ASSERTION Possible [facility] Sexual orientation [facility] History of tobacco use Passive smoker [facility] Alcoholic beverage intake 2025-05-12 00:00:00 2025-05-12 00:00:00 Lifetime non-drinker (finding) [facility] Cigarettes smoked current (pack per day) - Reported 2025-03-15 00:00:00 2025-03-15 00:00:00 [facility] Cigarette pack-years 2025-03-15 00:00:00 2025-03-15 00:00:00 [facility] Tobacco use and exposure 2025-03-15 00:00:00 2025-03-15 00:00:00 Smokeless tobacco non-user [facility] History of Social function 2025-03-15 00:00:00 2025-03-15 00:00:00 [facility] Sex 2023-11-17 04:29:54 2023-11-17 04:29:54 Female (finding) [facility] Sex Assigned At 1955 00:00:00 1955 00:00:00 [facility] Smoking Status Start Date Stop Date Source Tobacco smoking consumption unknown [facility] Smokes tobacco daily 2025-03-15 00:00:00 [facility] Medications Ordered Medication Name Filled Medication Name Start Date Stop Date Current Medication? Ordering Clinician Indication Dosage Frequency Signature (SIG) Comments Components Source cetirizine (ZyrTEC) 10 MG tablet cetirizine (ZyrTEC) 10 MG tablet 05-12 10:47: 03 Yes 10mg Q24H Take 10 mg by mouth daily as needed for allergies. Tanner Miguel [facility] fenofibrate (Tricor) 145 MG tablet fenofibrate (Tricor) 145 MG tablet 05-12 10:47: 00 Yes 145mg Take 145 mg by mouth at bedtime. Tanner tate Lamont Jacobson buPROPion XL (Wellbutrin XL) 150 MG 24 hr tablet buPROPion XL (Wellbutrin XL) 150 MG 24 hr tablet 05-12 10:45: 09 Yes 150mg Take 150 mg by mouth at bedtime. Wellbutrin 150mg + wellbutrin 300mg = total wellbutrin 450mgDo not crush, chew, or split. Tanner Jacobson lidocaine (Salonpas Pain Relieving) 4 % patch patch lidocaine (Salonpas Pain Relieving) 4 % patch patch 05-12 10:44: 50 Yes 1{patch } QD Apply 1 patch topically 1 time each day. Apply to right upper abdomen topically once daily for pain Tanner Jacobson rOPINIRole (Requip) 1 MG tablet rOPINIRole (Requip) 1 MG tablet 05-12 10:44: 45 Yes 1mg Take 1 mg by mouth at bedtime. Tanner Jacobson ondansetron (Zofran) 4 MG tablet ondansetron (Zofran) 4 MG tablet 05-12 10:44: 21 Yes 4mg Q8H Take 4 mg by mouth every 8 hours if needed for nausea or vomiting. Tanner Jacobson omeprazole (PriLOSEC) [address] capsule omeprazole (PriLOSEC) [address] capsule 05-12 10:44: 18 Yes 20mg Take 20 mg by mouth in the morning. Take before meals. Do not crush or chew. Tanner Jacobson DULoxetine (Cymbalta) [address] capsule DULoxetine (Cymbalta) [address] capsule 05-12 10:44: 14 Yes 120mg Take 120 mg by mouth at bedtime. Do not crush or chew. Tanner Jacobson latanoprost (Xalatan) 0.005 % ophthalmic solution latanoprost (Xalatan) 0.005 % ophthalmic solution 05-12 10:44: 14 Yes 1[drp] Administer 1 drop into the right eye at bedtime. Tanner Jacobson baclofen (Lioresal) 20 MG tablet baclofen (Lioresal) 20 MG tablet 05-12 10:44: 14 Yes 20mg Take 20 mg by mouth at bedtime. Tanner aJcobson guaiFENesin (Robitussin ) 100 MG/5ML liquid guaiFENesin (Robitussin ) 100 MG/5ML liquid 05-12 10:44: 14 Yes 200mg Q4H Take 200 mg by mouth every 4 hours if needed for cough. Tanner Jacobson acetaminoph en (Tylenol) 325 MG tablet acetaminoph en (Tylenol) 325 MG tablet 05-12 10:44: 14 Yes 650mg Q8H Take 650 mg by mouth every 8 hours if needed for mild pain (1-3). Tanner Jacobson loperamide (Imodium) 2 MG capsule loperamide (Imodium) 2 MG capsule 05-12 10:44: 14 Yes 2mg Q4H Take 2 mg by mouth every 4 hours if needed for diarrhea. Tanner Jacobson busPIRone (Buspar) 10 MG tablet busPIRone (Buspar) 10 MG tablet 05-12 10:44: 13 Yes 30mg Q.5D Take 30 mg by mouth in the morning and 30 mg in the evening. Tanner Jacobson Oyster Shell Calcium w/D (Calcium + Vitamin D3) 500-5 MG-MCG tablet Oyster Shell Calcium w/D (Calcium + Vitamin D3) 500-5 MG-MCG tablet 05-12 10:44: 13 Yes 1{tbl} Q.5D Take 1 tablet by mouth in the morning and 1 tablet in the evening. Tanner Jacobson metFORMIN (Glucophage ) 500 MG tablet metFORMIN (Glucophage ) 500 MG tablet 05-12 10:44: 13 Yes 500mg Take 500 mg by mouth in the morning and 500 mg in the evening. Take with meals. Tanner Jacobson HYDROcodone -acetaminop hen (Wingate) 10-325 MG tablet HYDROcodone -acetaminop hen (Wingate) 10-325 MG tablet 05-12 10:44: 13 Yes 1{tbl} Q8H Take 1 tablet by mouth every 8 hours if needed for severe pain (7-10). Tanner Jacobson pregabalin (Lyrica) 100 MG capsule pregabalin (Lyrica) 100 MG capsule 05-12 10:44: 13 Yes 100mg Q8H Take 100 mg by mouth in the morning and 100 mg at noon and 100 mg before bedtime. Tanner Jacobson mirabegron ER (Myrbetriq) 50 MG 24 hr tablet mirabegron ER (Myrbetriq) 50 MG 24 hr tablet 05-12 10:44: 13 Yes 50mg QD Take 50 mg by mouth 1 time each day. Do not crush, chew, or split. Tanner Jacobson multivitami n (Theragran) tablet multivitami n (Theragran) tablet 05-12 10:44: 13 Yes 1{tbl} QD Take 1 tablet by mouth 1 time each day. Tanner Jacobson docusate sodium (Colace) 100 MG capsule docusate sodium (Colace) 100 MG capsule 05-12 10:44: 13 Yes 200mg QD Take 200 mg by mouth 1 time each day. Tanner Miguel [facility] Cranberry 450 MG capsule Cranberry 450 MG capsule 05-12 10:44: 13 Yes 900mg QD Take 900 mg by mouth 1 time each day. Tanner Miguel [facility] glimepiride (Amaryl) 4 MG tablet glimepiride (Amaryl) 4 MG tablet 05-12 10:44: 13 Yes 4mg Take 4 mg by mouth in the morning. Take before meals. Tanner Miguel [facility] risperiDONE (RisperDAL) 1 MG tablet risperiDONE (RisperDAL) 1 MG tablet -16 00:00: 00 Yes 1mg QD Take 1 mg by mouth 1 time each day. Tanner Jacobson traZODone (Desyrel) 50 MG tablet traZODone (Desyrel) 50 MG tablet -12 00:00: 00 Yes 300mg Take 300 mg by mouth. Tanner Jacobson buPROPion XL (Wellbutrin XL) 300 MG 24 hr tablet buPROPion XL (Wellbutrin XL) 300 MG 24 hr tablet -05 00:00: 00 Yes 300mg Take 300 mg by mouth. Tanner Jacobson traZODone (Desyrel) 300 MG tablet traZODone (Desyrel) 300 MG tablet 04-27 00:00: 00 Yes 300mg Take 300 mg by mouth. Tanner Jacobson clopidogrel (Plavix) 75 MG tablet clopidogrel (Plavix) 75 MG tablet 03-17 00:00: 00 07-15 23:59 :00 No 75mg QD Take 1 tablet by mouth 1 time each day. Tanner Jacobson nicotine (Nicoderm CQ) 14 MG/24HR patch nicotine (Nicoderm CQ) 14 MG/24HR patch 03-16 00:00: 00 Yes 1{patch } Place 1 patch over 24 hours on the skin 1 time each day at the same time. Tanner Jacobson aspirin 325 MG EC tablet aspirin 325 MG EC tablet 03-16 00:00: 00 07-14 23:59 :00 No 325mg QD Take 1 tablet by mouth 1 time each day. Tanner Jacobson atorvastati n (Lipitor) 80 MG tablet atorvastati n (Lipitor) 80 MG tablet 03-16 00:00: 00 07-14 23:59 :00 No 80mg Take 1 tablet by mouth at bedtime. Tanner Jacobson traZODone (Desyrel) 100 MG tablet traZODone (Desyrel) 100 MG tablet 03-16 00:00: 00 05-25 00:00 :00 No 100mg Take 1 tablet by mouth at bedtime. Tanner Jacobson Baclofen Baclofen Yes 10 Three Times A Day for Muscle Spasm [facility] Calcium Carbonate/V itamin D3 (Calcium 500 + Vit D 200 Tablet) 1 Each TABLET Calcium Carbonate/V itamin D3 (Calcium 500 + Vit D 200 Tablet) 1 Each TABLET Yes 1 Twice A Day for Osteoporos is [facility] Docusate Sodium Docusate Sodium Yes 2 Daily as needed for Constipati on [facility] Duloxetine Hcl (Cymbalta) 30 Mg CAPSULE. Duloxetine Hcl (Cymbalta) 30 Mg CAPSULE.DR Garcia 60 Daily for Major Depressive Disorder [facility] Fenofibrate (Tricor) 145 Mg TAB Fenofibrate (Tricor) 145 Mg TAB Yes 145 Bedtime for Hyperlipid emia [facility] Furosemide (Lasix) 20 Mg TABLET Furosemide (Lasix) 20 Mg TABLET Yes 20 Daily for Chronic Ischemic Heart Disease [facility] Levofloxaci n Levofloxaci n Yes 500 Daily for Diverticul itis [facility] Loratadine Loratadine Yes 10 Skylar y for Seasonal Allergies [facility] Metronidazo le (Flagyl) 500 Mg TABLET Metronidazo le (Flagyl) 500 Mg TABLET Yes 1 Every 8 Hours for Diverticul itis [facility] Omeprazole Omeprazole Yes 20 Skylar y for Gerd [facility] Oxybutynin Chloride (Ditropan Xl) 5 Mg TAB.ER.24 Oxybutynin Chloride (Ditropan Xl) 5 Mg TAB.ER.24 Yes 5 Daily for Stress Incontinen ce [facility] Potassium Chloride Potassium Chloride Yes 10 Daily for Chronic Ischemic Heart Disease [facility] Promethazin e Hcl (Phenergan) 25 Mg/1 Ml AMPUL Promethazin e Hcl (Phenergan) 25 Mg/1 Ml AMPUL Yes 25 Every 8 Hours as needed for Nausea And Vomiting [facility] Propranolol Hcl Propranolol Hcl Yes 40 Twice A Day for Primary Hypertensi on [facility] Ropinirole Hcl Ropinirole Hcl Yes Bedtime for Restless Leg Syndrome [facility] Sennosides (Senna Lax) 8.6 Mg TABLET Sennosides (Senna Lax) 8.6 Mg TABLET Yes 8.6 Every 12 Hours as needed for Constipati on [facility] Trazodone Hcl Trazodone Hcl Yes 1 Bedtime for Insomnia [facility] Vital Signs Vital Name Observation Time Observation Value Comments S ourayana Systolic blood pressure 2025-05-12 10:53:00 144 mm[Hg] [facility] Diastolic blood pressure 2025-05-12 10:53:00 60 mm[Hg] [facility] Heart rate 2025-05-12 10:53:00 69 /min Krunal mckeon [facility] Body temperature 2025-05-12 10:53:00 36.11 [facility] Respiratory rate 2025-05-12 10:53:00 16 /min [facility] Oxygen saturation in Arterial blood by Pulse oximetry 2025-05-12 10:53:00 92 /min [facility] Systolic blood pressure 2025-05-12 10:53:00 144 mm[Hg] [facility] Diastolic blood pressure 2025-05-12 10:53:00 60 mm[Hg] [facility] Heart rate 2025-05-12 10:53:00 69 /[facility] 2025-05-12 10:53:00 36.11 Colleen [facility] Respiratory rate 2025-05-12 10:53:00 16 /min [facility] Oxygen saturation in Arterial blood by Pulse oximetry 2025-05-12 10:53:00 92 /min [facility] Body Temperature 2020-08-09 08:49:00 98.0 [degF] [facility] Heart Rate 2020-08-09 08:49:00 89 /min [facility] Respiratory rate 2020-08-09 08:49:00 18 /min [facility] BP Systolic 2020-08-09 08:49:00 151 mm[Hg] [facility] BP Diastolic 2020-08-09 08:49:00 81 mm[Hg] [facility] Oxygen saturation by Pulse oximetry 2020-08-09 08:49:00 98 /min [facility] BMI (Body Mass Index) 2020-08-04 10:44:00 36.3 kg/m2 [facility] Weight 2020-08-04 04:39:00 225 [lb_av] [facility] Procedures Procedure Date / Time Performed Performing Clinician Source EEG AWAKE AND SLEEP 2025-05-25 18:50:53 Casys Yoon [facility] Complete Blood Count w/Diff and Platelet 2025-05-12 00:00:00 [facility] Comprehensive Metabolic Panel 2025-05-12 00:00:00 [facility] Lipid Panel w/calculated LDL 2025-05-12 00:00:00 [facility] EEG awake and sleep 2025-05-12 00:00:00 M [facility] EXTERNAL PROVIDER RECORDS 2023-06-10 05:01:00 Doctor Unassigned, [place] [facility] EXTERNAL PROVIDER RECORDS 2023-06-04 05:01:00 Doctor Unassigned, [place] [facility] X-ray of chest, two views 2020-08-08 00:00:00 [facility] Plan of Care Planned Activity Planned Date Details Comments Source Encounters Start Date/Time End Date/Time Encounter Type Admission Type Attending [facility] Care Facility Care Department Encounter ID Source 2020-08-04 00:06:00 Inpatient [facility] [id number] [facility] 2025-05-25 10:00:00 2025-05-25 11:05:35 Procedure Visit C [facility], [facility] Jeanine [id number] Tanner tate [facility] 2025-05-12 10:39:15 2025-05-12 11:42:30 Outpatient Elective [facility] [id number] EOUT 2025-05-12 10:30:00 2025-05-12 11:42:30 Consult Cassy Yoon [id number] [id number] Tanner tate [facility] 2025-04-13 15:30:00 2025-04-13 15:30:00 Outpatient YASMANY HOLLAND [facility] [id number] [facility] 2025-03-14 17:05:00 2025-03-16 18:00:00 Inpatient Emergency NIKI TAO [facility] General Medicine [id number] [facility] 2023-06-10 00:00:00 2023-06-10 00:00:00 Orders Only Doctor Unassigned, [place] [facility] [id number] 350.1.13.10 [id number] [id number] [facility] 2023-06-04 00:00:00 2023-06-04 00:00:00 Orders Only Doctor Unassigned, [place] [facility] [id number] 350.1.13.10 [id number] [id number] [facility] 2023-05-31 09:30:00 2023-05-31 10:23:03 [facility] [id number] 350.1.13.10 [id number] [id number] [facility] 2023-05-31 09:30:00 2023-05-31 10:23:03 Outpatient R SUGEY FARLEY [facility] [id number] [facility] 2023-05-10 14:16:00 2023-05-10 23:59:00 Hospital Encounter Sugey Farley [facility] [id number] [id number] [id number] [id number] [facility] 2023-05-10 00:00:00 2023-05-10 23:59:00 Outpatient R SUEGY FARLEY [facility] OUT [id number] [facility] 2020-08-04 04:17:00 2020-08-09 12:05:00 Discharged Inpatient 1 PANDA LOPEZ [facility] [id number] [facility] Results Test Description Test Time Test Comments Results Result Comments Source EEG awake and sleep 18:50:53 Cassy Yoon MD ? ? 05/25/2025 ?6:52 PMEEG awake and sleep Date/Time: 05/25/2025 6:50 PM Performed by: Cassy Yoon MDAuthorized by: Cassy Yoon MD ?Indications: ?Indications: ?TIA, hallucinations, possible seizuresProcedure specific details: ? The EEG was recorded in the EEG lab. Electrodes were placed according to the international 10 - 20 system of electrode placement. The EEG underwent continuous computer analysis that consists of real-time application of programs to detect electrical events that could be considered epileptiform. All electroencephalographic events identified by the detection program were visually inspected in order to assess waveform characteristics and significance. Only computer detected events verified by visual inspection to be interictal or ictal epileptiform abnormalities are reported below and considered in the final report of the study. The waking EEG consists of moderate amplitude rhythmical alpha waves of up to 10 cycles per second that are maximal in the posterior head regions, attenuate with eye opening, and appear without abnormal asymmetry. Low amplitude fast activity of 20 - 30 cycles per second appears symmetrically and is maximal in the frontal and central regions. In drowsiness, low amplitude fast activity increases and moderate amplitude slow waves of 6 -- 8 cycles per second appear in the central and posterior regions without persistent asymmetry. Sleep did not occur. Hyperventilation was not performed. Photic stimulation produced symmetrical driving responses. IMPRESSIONNormal EEG in wake and drowsiness. There were no focal asymmetries. No epileptiform discharges appeared. No behavior suggestive of seizure occurred. [facility] one hour [id number] 16:15:00* Test Item Value Reference Range Interpretation Comme nts Coronavirus (PCR) (test code = Coronavirus (PCR)) NOT DETECTED NOTDETECTED SARS-COV2/RT-PCR CEPHEIDResults are for the detection of [...] viruses. The agent detected may not be the definite cause of the disease.The limit of detection [...] EUA is revoked under 564(g) of the ACT.[facility]IEWS 2020-08-08 11:47:00 [facility] 1955 Sex: F [address] Name: FLAVIA FELIX MR #: [id number] : 1955 Age/Sex: 65/F Req #: [id number] Adm Physician: PANDA LOPEZ MD Ordered by: PANDA LOPEZ MD Report #: [id number]: MED/SURG3 Room/Bed: [facility] Procedure: [id number] DX/CHEST 2 VIEWS Exam Date: 08/08/20 Exam Time: 1115 REPORT STATUS: Signed EXAMINATION: CHEST 2 VIEWS INDICATION: Pneumonia COMPARISON: Chestradiograph 08/04/2020 FINDINGS: LINES/TUBES:None LUNGS:The lungs are well-inflated. No focal consolidation or pulmonary edema. PLEURA:No pleural effusion or pneumothorax. MEDIASTINUM:The cardiomediastinal silhouette appears normal in size and shape. BONES/SOFT TISSUES:No acute osseous injury. ABDOMEN:No free air under the diaphragm. IMPRESSION: No focal pneumonia or pulmonary edema. Signed by: Kristen Mcfarland MD on 08/08/2020 11:48 AM Dictated By: KRISTEN MCFARLAND MD 114 Transcribed By: LUIGI on 08/08/20 1148 COPY TO: PANDA LOPEZ leukocytes automated count (number/volume)2020-08-08 05:24:00* Test Item Value Reference Range Interpretation Comme [facility] White Blood Count (test code = 6690-2) 9.55 10*3/uL 4.8-10.8 [facility] erythrocytes automated count (number/volume)2020-08-08 05:24:00* Test Item Value Reference Range Interpretation Comme [facility] Red Blood Count (test code = 789-8) 3.89 10*6/mL 3.6-5.1 [facility] hemoglobin measurement (moles/volume) 2020-08-08 05:24:00* Test Item Value Reference Range Interpretation Comme [facility] Hemoglobin (test code = 54092-9) 12.0 g/dL 12.0-16.0 [facility] blood hematocrit (volume fraction) 2020-08-08 05:24:00* Test Item Value Reference Range Interpretation Comme [facility] Hematocrit (test code = 4544-3) 35.8 % 34.2-44.1 [facility] erythrocyte mean corpuscular volume 2020-08-08 05:24:00* Test Item Value Reference Range Interpretation Comme [facility] Mean Corpuscular Volume (dahlia t code = 787-2) 92.0 81-99 [facility] eryth[facility] mean corpuscular hemoglobin (mass per erythrocyte)2020-08-08 05:24:00* Test Item Value Reference Range Interpretation Comme [facility] Mean Corpuscular Hemoglobin (test code = 785-6) 30.8 pg 28-32 [facility] erythrocyte mean corpuscular hemoglobin concentration measurement (mass/volume)2020-08-08 05:24:00* Test Item Value Reference Range Interpretation Comme nts Mean Corpuscular Hemoglobin Concent (test code = 786-4) 33.5 g/dL 31-35 [facility]ervilleRDW [id number] 05:24:00* Test Item Value Reference Range Interpretation Comme [facility] Red Cell Distribution Width (test code = 65339-3) 14.3 % 11.7-14.4 [facility] [facility] [place] platelet count (count/volume) 2020-08-08 05:24:00* Test Item Value Reference Range Interpretation Comme [facility] Platelet Count (test code = 777-3) 298 10*3/uL 140-360 [facility] segmented neutrophil count as percentage of total vazuuvsrng3606-13-17 05:24:00* Test Item Value Reference Range Interpretation Comme [facility] Neutrophils (%) (Auto) (test code = 69016-5) 66.9 % 38.7-80.0 [facility] lymphocyte count as percentage ot total gfmqnsgycd4632-27-27 05:24:00* Test Item Value Reference Range Interpretation Comme nts Lymphocytes (%) (Auto) (test code = 736-9) 22.2 % 18.0-39.1 [facility] monocyte count as percentage of total yogqawpepc0987-14-86 05:24:00* Test Item Value Reference Range Interpretation Comme nts Monocytes (%) (Auto) (test c ode = 5905-5) 8.6 % 4.4-11.3 [facility] eosinophil count as percentage of total uyntogfbec6839-51-50 05:24:00* Test Item Value Reference Range Interpretation Comme nts Eosinophils (%) (Auto) (test code = 713-8) 1.2 % 0.0-6.0 [facility] basophil count as percentage of total rrxikxolhk8927-25-14 05:24:00* Test Item Value Reference Range Interpretation Comme nts Basophils (%) (Auto) (test c ode = 706-2) 0.3 % 0.0-1.0 [facility] neutrophil goptd6948-89-20 05:24:00* Test Item Value Reference Range Interpretation Comme nts Neutrophils # (Auto) (test c ode = 751-8) 6.4 2.1-6.9 [facility] [place] lymphocytes count (number/volume) 2020-08-08 05:24:00* Test Item Value Reference Range Interpretation Comme nts Lymphocytes # (Auto) (test c ode = 34130-5) 2.1 1.0-3.2 [facility] [place] monocytes automated count (number/volume)2020-08-08 05:24:00* Test Item Value Reference Range Interpretation Comme nts Monocytes # (Auto) (test code = 742-7) 0.8 0.2-0.8 [facility] eosinophil vedxl4215-57-85 05:24:00* Test Item Value Reference Range Interpretation Comme nts Eosinophils # (Auto) (test c ode = 711-2) 0.1 0.0-0.4 [facility] basophil count (count/volume) 2020-08-08 05:24:00* Test Item Value Reference Range Interpretation Comme nts Basophils # (Auto) (test code = 704-7) 0.0 0.0-0.1 [facility] [place]Fluoroscopic procedure less than one hour [id number] 05:24:00* Test Item Value Reference Range Interpretation Comme nts Absolute Immature Granulocyt e (auto (test code = Absolute Immature Granulocyte (auto) 0.08 10*3/uL 0-0.1 [facility] sodium measurement (moles/volume)2020-08-07 06:10:00* Test Item Value Reference Range Interpretation Comme nts Sodium Level (test code = 2951-2) 141 mmol/L 136-145 [facility] plasma potassium measurement (moles/volume)2020-08-07 06:10:00* Test Item Value Reference Range Interpretation Comme [facility] Potassium Level (test code = 2823-3) 3.8 mmol/L 3.5-5.1 [facility] Antonio[facility] plasma chloride measurement (moles/volume)2020-08-07 06:10:00* Test Item Value Reference Range Interpretation Comme [facility] Chloride Level (test code = 2075-0) 111 mmol/L 98-107 [facility] plasma carbon dioxide, total measurement (moles/volume)2020-08-07 06:10:00* Test Item Value Reference Range Interpretation Comme [facility] Carbon Dioxide Level (test c ode = 2028-9) 23 mmol/L 22-29 [facility] or plasma anion npf8018-03-61 06:10:00 * Test Item Value Reference Range Interpretation Comme [facility] Anion Gap (test code = 26572-8) 10.8 mmol/L 8-16 [facility] plasma urea nitrogen measurement (mass/volume)2020-08-07 06:10:00* Test Item Value Reference Range Interpretation Comme [facility] Blood Urea Nitrogen (test co de = 3094-0) 7 mg/dL 7-26 [facility] plasma creatinine measurement (mass/volume)2020-08-07 06:10:00* Test Item Value Reference Range Interpretation Comme [facility] Creatinine (test code = 2160-0) 0.66 mg/dL 0.57-1.11 [facility] plasma urea nitrogen/creatinine mass aczcr6076-73-33 06:10:00* Test Item Value Reference Range Interpretation Comme [facility] BUN/Creatinine Ratio (test c ode = 3097-3) 11 6-25 [facility]Estimated glomerular filtration rate (GFR) modkpgwjhipjn9016-02-32 06:10:00* Test Item Value Reference Range Interpretation Comme [facility] Estimat Glomerular Filtratio n Rate (test code = 946313182) > 60 mL/min >60 Ranges were taken from the National Kidney Disease Education Program and the National Kidney Foundation literature.Reference ranges:60 or greater: Qqusfm27- 59 (for 3 consecutive months): Chronic kidney disease 15 or less: Kidney failure [facility] [place]ervilleGlucose ifxnjubekoh2231-44-01 06:10:00* Test Item Value Reference Range Interpretation Comme [facility] Glucose Level (test code = IKY3084) 118 mg/dL 74-118 [facility] or plasma calcium measurement (mass/volume)2020-08-07 06:10:00* Test Item Value Reference Range Interpretation Comme nts Calcium Level (test code = 78337-2) 8.7 mg/dL 8.4-10.2 [facility]Fluoroscopic procedure less than one hour bkokvrlt0138-34-51 06:10:00* Test Item Value Reference Range Interpretation Comme nts Lactic Acid Level (test code = Lactic Acid Level) 0.7 mmol/L 0.5-2.0 [facility]ervilleClostridium difficile A and B toxin assay 2020-08-06 17:26:00* Test Item Value Reference Range Interpretation Comme nts Clostridium Difficile Toxin A & B (test code = 954615343) NEGATIVE NEGATIVE Testing on stool aspirate specimens is outside design eng claims since specimen type not validated on this assay.[facility] [place] Blood hrnuweg3764-21-31 16:40:00* Test Item Value Reference Range Interpretation Comme nts Blood Culture (test code = 34355921) NO GROWTH AFTER 5 DAYS, FINAL REPORT [facility] plasma magnesium measurement (mass/volume)2020-08-06 15:10:00* Test Item Value Reference Range Interpretation Comme nts Magnesium Level (test code = 77982-8) 1.4 mg/dL 1.3-2.1 [facility]ST SINGLE (PORTABLE)2020-08-04 21:56:00 [facility] 1955 Sex: F [place] [id number] [place], [place] [address] dina Name: FLAVIA FELIX MR #: [id number] : 1955 Age/Sex: 65/F Req #: [id number] Adm Physician: PANDA LPOEZ MD Ordered by: PANDA LOPEZ MD Report #: [id number] Location: MED/SURG3 Room/Bed: [facility] Procedure: [id number] DX/CHEST SINGLE (PORTABLE) Exam Date: 08/04/20 Exam [...] component of vascular congestion. Signed by: Aldo Braden MD on 08/04/2020 9:59 PM Dictated By: ALDO BRADEN MD 58 Transcribed By: LUIGI on 08/04/202158 COPY TO: PANDA LOPEZ MD Notes Date/Time Note Provider Source Referral ID Status Reason Start Date Expiration Date V isits Requested Visits Authorized [id number] Authorized 05/12/2025 05/07/2026 1 1 [facility]Jxvdyuy3905-01-77 18:52:51 [facility] CenterAnoqsmi4700-69-05 18:52:51* Cassy Yoon MD - 05/25/2025 10:00 AM CDT Associated Order(s): EEG awake and sleep Pre-Procedure Diagnose(s): TIA (transient ischemic attack); Bilateral carotid artery stenosis; Hallucinations Post-Procedure Diagnose(s): TIA (transient ischemic attack); Bilateral carotid artery stenosis; Hallucinations Patient ID: Flavia Felix is a 70 y.o. female. EEG awake and sleep Date/Time: 05/25/2025 6:50 PM Performed by: Cassy Yoon MD Authorized by: Cassy Yoon MD Indications: Indications: TIA, hallucinations, possible seizures Procedure specific details: The EEG was recorded in the EEG lab. Electrodes were placed according to the international 10 - 20 system of electrode placement. The EEG underwent continuous computer analysis that consists of real-time application of programs to detect electrical events that could be considered epileptiform. All electroencephalographic events identified by the detection program were visually inspected in order to assess waveform characteristics and significance. Only computer detected events verified by visual inspection to be interictal or ictal epileptiform abnormalities are reported below and considered in the final report of the study. The waking EEG consists of moderate amplitude rhythmical alpha waves of up to 10 cycles per second that are maximal in the posterior head regions, attenuate with eye opening, and appear without abnormal asymmetry. Low amplitude fast activity of 20 - 30 cycles per second appears symmetrically and is maximal in the frontal and central regions. In drowsiness, low amplitude fast activity increases and moderate amplitude slow waves of 6 -- 8 cycles per second appear in the central and posterior regions without persistent asymmetry. Sleep did not occur. Hyperventilation was not performed. Photic stimulation produced symmetrical driving responses. IMPRESSION Normal EEG in wake and drowsiness. There were no focal asymmetries. No epileptiform discharges appeared. No behavior suggestive of seizure occurred. [facility] CenterHkeeols8126-27-16 18:52:51Upcoming Encounters Health Maintenance Due Date Last Done Comments Bone Density Scan 1955 CT Colonography 1955 Colonoscopy 1955 Colorectal Cancer Screening 1955 FIT-DNA 1955 FIT 1955 FOBT 1955 Medicare Annual Wellness (AWV) 1955 Sigmoidoscopy 1955 Diabetes: Foot Exam 01/24/1966 Diabetes: Retinopathy Screening 01/24/1966 DTaP/Tdap/Td Vaccines (1 - Tdap) 01/24/1975 Diabetes: Urine Protein Screening 01/24/1975 Pneumococcal Vaccine: 50+ Ye ars (1 of 2 - PCV) 01/24/1975 Mammogram 1996 Lung Cancer Screening 01/24/2006 Zoster Vaccines (1 of 2) 01/24/2006 Influenza Vaccine (#1) 2025 Diabetes: Hemoglobin A1C 09/14/2025 03/14/2025 Lipid Panel 03/14/2026 03/14/2025 Respiratory Syncytial Virus (RSV) Adult Series (1 - 1-dose 75+ series) 01/24/2031 HIB Vaccines Aged Out No longer eligi ble based on patient's age to complete this topic HPV Vaccines Aged Out No longer eligi ble based on patient's age to complete this topic Hepatitis A Vaccines Aged Out No long er eligible based on patient's age to complete this topic Hepatitis B Vaccines Aged Out No long er eligible based on patient's age to complete this topic IPV Vaccines Aged Out No longer eligi ble based on patient's age to complete this topic Meningococcal Vaccine Aged Out No dayan beti eligible based on patient's age to complete this topic Rotavirus Vaccines Aged Out No longer eligible based on patient's age to complete this topic [facility] CenterVddqhld2710-56-64 18:52:51 Diagnosis TIA (transient ischemic attack) - Primary Unspecified transient cerebral ischemia Bilateral carotid artery stenosis Occlusion and stenosis of carotid artery without mention of cerebral infarction Hallucinations [facility] CenterWmvbotc9310-62-72 18:52:51 [facility] CenterFmyngkg1228-02-78 17:47:07* Neurology (Routine) - Pending Review Specialty Diagnoses / Procedures Referred By Sol antony Referred To Contact Diagnoses TIA (transient ischemic attack) Bilateral carotid artery stenosis Hallucinations Procedures EEG awake and sleep Cassy Yoon MD [address] [place] [address] Phone: tel: fax: Referral ID Status Reason Start Date Expiration Date V isits Requested Visits Authorized [id number] Pending Review 05/12/2025 05/07/2026 1 1 [facility] CenterTvrbvdg1328-39-82 17:47:07* [facility] CenterCednxml3987-65-24 17:47:07 [facility] CenterSlcgnbv7002-09-53 17:47:07* Cassy Yoon MD - 05/12/2025 10:30 AM CDT Subjective Flavia Felix is a 70 y.o. female presenting with TIA. History of Present Illness HPI The patient is a 70-year-old female, with a history of TIA, CVA, and carotid artery stenosis, seen today for evaluation of new-onset hallucinations. The patient experienced a TIA in February, characterized by facial drooping and left-sided weakness. She does not recall the event. A brain MRI showed no evidence of a new CVA. During hospitalization, her Lipitor dosage was increased to 80 mg, and she was prescribed 325 mg aspirin in addition to Plavix. She was hospitalized for a few days before being discharged. She denies any further TIA episodes since then. She has a history of a prior CVA on August 30, 2007, which resulted inpersistent left-sided weakness. She also has a history of carotid artery stenosis and underwent carotid endarterectomy on January 12, 2009. Recent evaluations revealed significant plaque buildup in the right carotid artery, estimated at 85-90%, and approximately 60% in the left carotid artery. Since the TIA, she has been experiencing daily visual hallucinations, which she describes as seeing "snakes" and "small alligators" with visible nostrils, eyes, and long tails. These hallucinations occur primarily in her room and the shower, and she reports that they are very visible to her but not to others. She denies any prior history of hallucinations and finds these experiences distressing. She has been prescribed risperidone for the hallucinations, which she started within the past week. She was diagnosed with a UTI in March, which was treated with antibiotics. Despite treatment, the hallucinations have persisted. She denies any other symptoms associated with the hallucinations and reports that her memory is "pretty good." She also reports chronic cephalalgia and occasional migraines, which she has experienced for years. She is under the care of Dr. Guardado for chronic pain and is prescribed hydrocodone and Lyrica, which she reports have been effective in managing her pain. She also takes ropinirole for restless leg syndrome, which she reports has been effective. She is a resident at [facility] and has a history of multiple falls at home, which led to her return to the facility. She has a son and a third son who are involved in her care. Objective Past Medical History She has a past medical history of Chest pain (04/03/2016), Fall (05/12/2025), Intertrochanteric fracture of left hip (05/12/2025), Stroke ([facility]), and Weakness of left leg (05/12/2025). Surgical HistoryShe has a past surgical history that includes Hip fracture surgery (Left). Family HistoryFamily History: Problem Relation Name Age of Onset No Known Problems Mother No Known Problems Father No Known Problems Sister No Known Problems Brother No Known Problems Mother's Sister No Known Problems Mother's Brother No Known Problems Father's Sister No Known Problems Father's Brother No Known Problems Maternal Grandmother No Known Problems Maternal Grandfather No Known Problems Paternal Grandmother No Known Problems Paternal Grandfather No Known Problems Other Social History She reports that she has been smoking cigarettes. She started smoking about 18 years ago. She has a 37.4 pack-year smoking history. She has been exposed to tobacco smoke. She has never used smokeless tobacco. She reports that she does not drink alcohol and does not use drugs. AllergiesPatient has no known allergies. MedicationsCurrent Outpatient Medications Medication Sig Dispense Refill acetaminophen (Tylenol) 325 MG tablet Take 650 mg by mouth every 8 hours if needed for mild pain (1-3). aspirin 325 MG EC tablet Take 1 tablet by mouth 1 time each day. 30 tablet 3 atorvastatin (Lipitor) 80 MG tablet Take 1 tablet by mouth at bedtime. 30 tablet 3 baclofen (Lioresal) 20 MG tablet Take 20 mg by mouth at bedtime. buPROPion XL (Wellbutrin XL) 150 MG 24 hr tablet Take 150 mg by mouth at bedtime. Wellbutrin 150mg + wellbutrin 300mg = total wellbutrin 450mg Do not crush, chew, or split. buPROPion XL (Wellbutrin XL) 300 MG 24 hr tablet Take 300 mg by mouth. busPIRone (Buspar) 10 MG tablet Take 30 mg by mouth in the morning and 30 mg in the evening. cetirizine (ZyrTEC) 10 MG tablet Take 10 mg by mouth daily as needed for allergies. clopidogrel (Plavix) 75 MG tablet Take 1 tablet by mouth 1 time each day. 30 tablet 3 Cranberry 450 MG capsule Take 900 mg by mouth 1 time each day. docusate sodium (Colace) 100 MG capsule Take 200 mg by mouth 1 time each day. DULoxetine (Cymbalta) [address] capsule Take 120 mg by mouth at bedtime. Do not crush or chew. fenofibrate (Tricor) 145 MG tablet Take 145 mg by mouth at bedtime. glimepiride (Amaryl) 4 MG tablet Take 4 mg by mouth in the morning. Take before meals. guaiFENesin (Robitussin) 100 MG/5ML liquid Take 200 mg by mouth every 4 hours if needed for cough. HYDROcodone-acetaminophen (Wingate) 10-325 MG tablet Take 1 tablet by mouth every 8 hours if needed for severe pain (7-10). latanoprost (Xalatan) 0.005 % ophthalmic solution Administer 1 drop into the right eye at bedtime. lidocaine (Salonpas Pain Relieving) 4 % patch patch Apply 1 patch topically 1 time each day. Apply to right upper abdomen topically once daily for pain loperamide (Imodium) 2 MG capsule Take 2 mg by mouth every 4 hours if needed for diarrhea. metFORMIN (Glucophage) 500 MG tablet Take 500 mg by mouth in the morning and 500 mg in the evening. Take with meals. mirabegron ER (Myrbetriq) 50 MG 24 hr tablet Take 50 mg by mouth 1 time each day. Do not crush, chew, or split. multivitamin (Theragran) tablet Take 1 tablet by mouth 1 time each day. nicotine (Nicoderm CQ) 14 MG/24HR patch Place 1 patch over 24 hours on the skin 1 time each day at the same time. 30 patch 0 omeprazole (PriLOSEC) [address] capsule Take 20 mg by mouth in the morning. Take before meals. Do not crush or chew. ondansetron (Zofran) 4 MG tablet Take 4 mg by mouth every 8 hours if needed for nausea or vomiting. Oyster Shell Calcium w/D (Calcium + Vitamin D3) 500-5 MG-MCG tablet Take 1 tablet by mouth in the morning and 1 tablet in the evening. pregabalin (Lyrica) 100 MG capsule Take 100 mg by mouth in the morning and 100 mg at noon and 100 mg before bedtime. risperiDONE (RisperDAL) 1 MG tablet Take 1 mg by mouth 1 time each day. rOPINIRole (Requip) 1 MG tablet Take 1 mg by mouth at bedtime. traZODone (Desyrel) 300 MG tablet Take 300 mg by mouth. traZODone (Desyrel) 50 MG tablet Take 300 mg by mouth. traZODone (Desyrel) 100 MG tablet Take 1 tablet by mouth at bedtime. (Patient not taking: Reported on 05/12/2025) 30 tablet 3 No current facility-administered medications for this visit. Review of Systems Head: (+) headaches, (+) migraines Neurological: (+) left-sided weakness Psychiatric: (+) visual hallucinations Last Recorded Vitals Vitals: 05/12/25 1053 BP: 144/60 Pulse: 69 Resp: 16 Temp: 36.1 ?C (97 ?F) SpO2: 92% Physical ExamVitals reviewed. HENT: Head: Normocephalic. Eyes: General: Lids are normal. Extraocular Movements: Extraocular movements intact. Pupils: Pupils are equal, round, and reactive to light. Neck: Vascular: No carotid bruit. Cardiovascular: Rate and Rhythm: Normal rate and regular rhythm. Pulmonary: Effort: Pulmonary effort is normal. Breath sounds: Normal breath sounds. Abdominal: General: Bowel sounds are normal. Musculoskeletal: General: Normal range of motion. Cervical back: Normal range of motion. Skin: General: Skin is warm and dry. Psychiatric: Mood and Affect: Mood normal. Speech: Speech normal. Thought Content: Thought content normal. Neurological ExamMental Status Awake, alert and oriented to person, place and time. Speech is normal. Cranial NervesCN II: Visual acuity is normal. Visual starks full to confrontation. CN III, IV, : Extraocular movements intact bilaterally. Normal lids and orbits bilaterally. Pupils equal round and reactive to light bilaterally. CN V: Facial sensation is normal. CN VII: Left: There is peripheral facial weakness. CN VIII: Hearing is normal. CN IX, X: Palate elevates symmetrically. Normal gag reflex. CN XI: Shoulder shrug strength is normal. CN XII: Tongue midline without atrophy or fasciculations. MotorNormal muscle bulk throughout. No abnormal involuntary movements. Spastic left hemiparesis arm>leg 3/5. SensorySensation is intact to light touch, pinprick, vibration and proprioception in all four extremities. ReflexesLeft sided hyperreflexia. CoordinationRight: Xudpfm-tc-knkb normal. Gait In a wheelchair. Relevant ResultsLabs: (04/13) UA: Positive for infection, consistent with a UTI (02/25) Labs: No specific results mentioned Imaging:(February) Brain MRI: No new stroke or acute findings Assessment & Plan # TIA (transient ischemic attack) (G45.9) Recent TIA in February with right-sided facial droop and weakness; no new infarct on MRI. Lipitor increased to 80 mg and full-strength aspirin 325 mg added to Plavix. No recurrent TIA episodes since discharge. - Continue current secondary stroke prevention regimen: Lipitor 80 mg, aspirin 325 mg, and Plavix. - Repeat labs to monitor lipid profile. - Follow-up in 6 weeks. # Bilateral carotid artery stenosis (I65.23)History of bilateral carotid artery stenosis with prior endarterectomy; right carotid previously 85-90% stenosed, left 60%. No current symptoms attributable to carotid disease. - Carotid disease not currently symptomatic; will defer intervention for now. - Recommended surgery opinion before year’s end. # Hallucinations (R44.3)Persistent daily visual hallucinations began after TIA; not present prior. UTI treated and resolved, but hallucinations continued. Risperidone recently started by facility psychiatry. - EEG ordered to further evaluate hallucinations. - Monitor response to risperidone. # Restless legs syndrome (G25.81)Chronic RLS, well controlled on ropinirole. - Continue current ropinirole regimen. # Other chronic pain (G89.29)Chronic pain managed by Dr. Curry with hydrocodone and Lyrica; patient reports effective relief. - Continue current pain management regimen. [place] [id number] 17:47:07Upcoming Encounters Scheduled Orders Name Type Priority Associated Diagnoses Orde r Schedule Complete Blood Count w/Diff and Platelet Lab Routine TIA (transient ischemic attack) Bilateral carotid artery stenosis Hallucinations Expected: 05/12/2025 (Approximate), Expires: 05/12/2026 Comprehensive Metabolic Panel Lab Routine TIA (transient ischemic attack) Bilateral carotid artery stenosis Hallucinations Expected: 05/12/2025 (Approximate), Expires: 05/12/2026 Lipid Panel w/calculated LDL Lab Routine TIA (transient ischemic attack) Bilateral carotid artery stenosis Hallucinations Expected: 05/12/2025 (Approximate), Expires: 05/12/2026 EEG awake and sleep Neurology Routine TIA (transient ischemic attack) Bilateral carotid artery stenosis Hallucinations Expected: 05/12/2025 (Approximate), Expires: 05/12/2026 Health Maintenance Due Date Last Done Comments Bone Density Scan 1955 CT Colonography 1955 Colonoscopy 1955 Colorectal Cancer Screening 1955 FIT-DNA 1955 FIT 1955 FOBT 1955 Medicare Annual Wellness (AWV) 1955 Sigmoidoscopy 1955 Diabetes: Foot Exam 01/24/1966 Diabetes: Retinopathy Screening 01/24/1966 DTaP/Tdap/Td Vaccines (1 - Tdap) 01/24/1975 Diabetes: Urine Protein Screening 01/24/1975 Pneumococcal Vaccine: 50+ Ye ars (1 of 2 - PCV) 01/24/1975 Mammogram 1996 Lung Cancer Screening 01/24/2006 Zoster Vaccines (1 of 2) 01/24/2006 Influenza Vaccine (#1) 2025 Diabetes: Hemoglobin A1C 09/14/2025 03/14/2025 Lipid Panel 03/14/2026 03/14/2025 Respiratory Syncytial Virus (RSV) Adult Series (1 - 1-dose 75+ series) 01/24/2031 HIB Vaccines Aged Out No longer eligi ble based on patient's age to complete this topic HPV Vaccines Aged Out No longer eligi ble based on patient's age to complete this topic Hepatitis A Vaccines Aged Out No long er eligible based on patient's age to complete this topic Hepatitis B Vaccines Aged Out No long er eligible based on patient's age to complete this topic IPV Vaccines Aged Out No longer eligi ble based on patient's age to complete this topic Meningococcal Vaccine Aged Out No dayan beti eligible based on patient's age to complete this topic Rotavirus Vaccines Aged Out No longer eligible based on patient's age to complete this topic [id number] 17[facility]47[facility]07 Diagnosis TIA (transient ischemic attack) - Primary Unspecified transient cerebral ischemia Bilateral carotid artery stenosis Occlusion and stenosis of carotid artery without mention of cerebral infarction Hallucinations Restless legs syndrome Restless legs syndrome (RLS) Other chronic pain [facility] [id number] 17:47:07 Sur[place]
--- NOTE | 2025-06-05 17:17 | RAD REPORT ---
EXAM: XR Knee Left 3 View HISTORY: [facility] MAIN PAIN Bed Name: 13 COMPARISON: None TECHNIQUE: 3 views of the left knee were obtained. FINDINGS: No knee effusion is seen. There is no evidence of acute fracture or dislocation. Small radi odensities at the femoral attachment of the MCL, could reflect mineralization in the setting of prior injury. Vascular calcifications. No significant degenerative changes are seen. No soft tissue swelling or other soft tissue abnormality is present. IMPRESSION: No evidence of acute osseous abnormality. Findings as above.
[2025-06-05 17:24] LABS: Absolute Lymphocytes (CBC) 1.9 K/uL (0.7-4.9); Hematocrit 34.7 % (36.0-45.0); Hemoglobin 11.2 g/dL (12.0-15.0); MCH 25.1 pg (27.0-35.0); MCHC 32.3 g/dL (32.0-36.0); MCV 77.7 fL (80-100); MPV 7.8 fL (7.6-11.3); Nucleated RBC Absolute Count 0.0 (0-0); Nucleated Red Blood Cells % 0.0 % (0-0); RBC Red Blood Cell Count 4.47 M/uL (3.86-4.86); White Blood Count 7.30 thou/uL (4.3-10.9)
[2025-06-05 17:38] LABS: Anion Gap 9.9 mEq/L (5.0-15.0); BUN Blood Urea Nitrogen 15.0 mg/dL (7-18); Glucose Level 157.0 mg/dL (74-106); Potassium 3.9 mEq/L (3.5-5.1)
--- NOTE | 2025-06-05 17:55 | RAD REPORT ---
EXAM: CT CHEST, ABDOMEN AND PELVIS WITHOUT CONTRAST CLINICAL INDICATION: Female, 70 years old. [facility] fall from bed Bed Name: 13 TECHNIQUE: CT chest, abdomen and pelvis was performed, without IV contrast, as per department protoco l. Axial, sagittal and coronal reconstructions were obtained. One or more of the following dose reduction techniques were used: Automated exposure control, adjustment of the mA and/or kV according to the patient size, and/or iterative reconstruction. Unless otherwise specified, incidental findings do not require dedicated imaging follow-up. COMPARISON: 08/03/2020 FINDINGS: The lack of intravenous contrast limits the sensitivity of this exam for evaluation of solid visceral organs, vascular structures, and retroperitoneum. Chest: LOWER NECK/CHEST WALL: Visualized thyroid gland and soft tissues are normal. LUNGS AND AIRWAYS: Airways are clear. Mild reticular opacities in the right upper to midlung, could r eflect atelectasis or scarring versus resolving airspace disease. No evidence of airspace or interstitial process. No nodules. PLEURA: No pleural effusion. No pneumothorax. Hemidiaphragms are normally positioned. MEDIASTINUM AND LYMPH NODES: No mediastinal mass or fluid collection. Normal size mediastinal, hilar, and axillary lymph nodes. THORACIC AORTA: Normal caliber and configuration. PULMONARY ARTERIES: Normal caliber. HEART: Unremarkable. Abdomen/Pelvis LIVER: Normal in size and contour. No focal lesion. GALLBLADDER/BILE DUCTS: Status post cholecystectomy. No biliary ductal dilatation. PANCREAS: No mass, ductal dilation, or ashwin-pancreatic fluid. SPLEEN: Normal size. No focal lesion. ADRENALS: Normal; no mass. KIDNEYS AND URETERS: Right kidney is again anteriorly located. A 6 mm calculus at the right lower loree e.. No hydronephrosis. GASTROINTESTINAL TRACT: Stomach is non-dilated. Small bowel has normal course and caliber. No colonic wall thickening or pericolonic inflammatory changes. PERITONEUM: No free fluid. LYMPH NODES: No lymphadenopathy. ABDOMINAL AORTA AND OTHER VESSELS: Normal caliber aorta and IVC. URINARY BLADDER: Normal contour. REPRODUCTIVE ORGANS: No pathologic process. MUSCULOSKELETAL: Comminuted left proximal femur fracture with internal fixation hardware again seen. No acute or suspicious osseous abnormality. ADDITIONAL FINDINGS: None IMPRESSION: Mild reticular opacities in the right upper to mid lung could reflect atelectasis or scarring versus a resolving airspace disease. No other acute or significant abnormalities in the chest, abdomen, or pelvis.
--- NOTE | 2025-06-05 17:58 | RAD REPORT ---
EXAM: CT brain without contrast HISTORY: fall from bed COMPARISON: 05/09/2023 TECHNIQUE: Multiple contiguous axial images were obtained and a CT of the brain without contrast. Sag ittal and coronal reformats were performed. FINDINGS: No evidence of hydrocephalus, intracranial hemorrhage, or extra-axial fluid collection. Stable encephalomalacia involving the right operculum and centrum semiovale bowel with volume loss an d ex vacuo dilation of the right lateral ventricle. The brain is otherwise normal in morphology. The calvarium is intact. Moderate mucosal thickening predominantly along the right maxillary sinus. M astoid air cells are essentially clear. IMPRESSION: No evidence of acute intracranial abnormality. EXAM: CT of the cervical spine without contrast HISTORY: fall from bed COMPARISON: None TECHNIQUE: Multiple contiguous axial images were obtained in a CT of the cervical spine without contr ast. Sagittal and coronal reformats were performed. FINDINGS: The vertebral bodies demonstrate normal height and alignment. No evidence of acute fracture or subluxation.. Mild to moderate multilevel degenerative changes are present. No prevertebral soft tissue swelling is seen. The posterior facets are well aligned. Normal alignment of the skull base with the cervical spine is seen. The lung apices are unremarkable. IMPRESSION: No evidence of acute osseous abnormality of the cervical spine. Multilevel up to moderate degenerativ e changes.
--- NOTE | 2025-06-05 18:30 | EDPHYS ---
Physician Documentation [facility] Name: Aurea Felix Age: 70 yrs Sex: Female : 1955 Arrival Date: 06/05/2025 Time: 16:28 Bed 13 Private MD: ED Physician Aayush Rodriguez HPI: 06/05 16:44 This 70 yrs old Female presents to ER via EMS with complaints of Knee Pain. cp 16:44 Details of fall: The patient fell from seated position, off the edge of a bed, and cp struck a concrete surface. 16:44 Onset: The symptoms/episode began/occurred today. Associated injuries: The patient cp sustained landed of right side and c/o right shoulder pain and left knee pain. Severity of symptoms: in the emergency department the symptoms are unchanged, despite EMS interventions. Historical: - PMHx: 16:34 acid reflux; acid reflux; Anxiety; Cerebral infarction; cranial nerve disorder; CVA; bp depressive disorder; diabetes mellitus; Diverticulitis; GERD; Glaucoma; Hyperlipidemia; Hypertensive disorder; LEFT SIDED WEAKNESS; Osteoporosis; restless leg syndrome; TIA; - Immunization history:: Adult Immunizations up to date. - Infectious Disease History:: Denies. - Social history:: Smoking status: Patient denies any tobacco usage or history of. ROS: 16:50 Constitutional: Negative for body aches, chills, fever, poor PO intake, cp 16:50 Eyes: Negative for injury, pain, redness, and discharge, cp 16:50 Cardiovascular: Negative for chest pain, 16:50 Respiratory: Negative for cough, shortness of breath, wheezing, 16:50 Abdomen/GI: Negative for abdominal pain, vomiting, diarrhea, constipation, 16:50 MS/extremity: Positive for pain, of the right shoulder and left knee, Negative for decreased range of motion, deformity, 16:50 Neuro: Negative for altered mental status, 16:50 All other systems are negative, Exam: 16:55 Constitutional: The patient appears in no acute distress, alert, awake, cp non-diaphoretic, non-toxic, well developed, well nourished, uncomfortable, 16:55 Head/face: Noted is tenderness, that is mild, of the occipital area of scalp, cp 16:55 Eyes: Periorbital structures: appear normal, Pupils: equal, round, and reactive to light and accomodation, Extraocular movements: intact throughout, Conjunctiva: normal, no exudate, no injection, Sclera: no appreciated abnormality, Lids and lashes: appear normal, bilaterally, 16:55 ENT: External ear(s): are unremarkable, Nose: is normal, Mouth: Lips: moist, Oral mucosa: moist, Posterior pharynx: Airway: no evidence of obstruction, patent, 16:55 Neck: C-spine: vertebral tenderness, that is mild, crepitus, is not appreciated, 16:55 Chest/axilla: Inspection: normal, Palpation: crepitus, is not appreciated, tenderness, that is mild, of the right lateral posterior chest and right lateral anterior chest, 16:55 Cardiovascular: Rate: normal, Rhythm: regular, Edema: JVD: is not appreciated, 16:55 Respiratory: the patient does not display signs of respiratory distress, Respirations: normal, no use of accessory muscles, no retractions, labored breathing, is not present, Breath sounds: are clear throughout, no decreased breath sounds, no stridor, no wheezing, 16:55 Abdomen/GI: Inspection: abdomen appears normal, Palpation: abdomen is soft and non-tender, in all quadrants, 16:55 Back: pain, that is very mild, ROM is painful, decreased, 16:55 Musculoskeletal/extremity: Extremities: noted in the right shoulder: posterior tenderness, no deformity, no decreased ROM, noted in the left knee: tenderness, no evidence of decreased ROM, deformity, gross swelling, 16:55 Neuro: Orientation: to person, place \T\ time. Mentation: able to follow commands, Vital Signs: 16:33 BP 174 / 74; Pulse 75; Resp 16; Temp 98; Pulse Ox 95% ; bp 18:44 BP 167 / 75; Pulse 78; Resp 16; Pulse Ox 95% ; bp MDM: 16:37 Medical Screening Exam initiated cp 17:00 Differential diagnosis: closed head injury, contusion, fracture, multiple trauma. 18:28 Data reviewed: vital signs, nurses notes, lab test result(s), radiologic studies, CT cp scan, plain films, and as a result, I will discharge patient. 18:28 I considered the following discharge prescriptions or medication management in the emergency department Medications were administered in the Emergency Department. See MAR. Care significantly affected by the following chronic conditions: Diabetes, Hypertension. 06/05 16:41 Order name: Basic Metabolic Panel; Complete Time: 18:16 cp 06/05 18:16 Interpretation: Normal except: GLUC 157; GFR 81. cp 06/05 16:41 Order name: CBC with Diff; Complete Time: 18:16 cp 06/05 18:17 Interpretation: Normal except: HGB 11.2; HCT 34.7; MCV 77.7; MCH 25.1; PLT 466; RDW cp 16.4; BASO% 1.6. 06/05 16:41 Order name: Type And Screen; Complete Time: 18:16 cp 06/05 16:41 Order name: XRAY Knee LEFT 3 view; Complete Time: 18:16 cp 06/05 18:18 Interpretation: Report reviewed. cp 06/05 16:45 Order name: Chest Abd Pelvis Wo Con; Complete Time: 18:16 EDMS 06/05 18:21 Interpretation: Report reviewed. cp 06/05 16:46 Order name: Head C Spine Mpr Wo Con; Complete Time: 18:16 EDMS 06/05 16:41 Order name: Labs collected and sent; Complete Time: 17:18 cp Administered Medications: No medications were administered Disposition: 06/06 07:01 Co-signature as Attending Physician, Aayush Rodriguez MD I reviewed the patient's care rn provided by the Advanced Practice Provider and agree with the diagnosis and treatment plan. 17:39 Chart complete. cp Disposition Summary: 06/05/25 18:29 Discharge Ordered Notes: Location: Home cp Problem: new cp Symptoms: have improved cp Condition: Stable cp Diagnosis - Fall from bed, initial encounter cp - Pain in right shoulder cp - Dorsalgia, unspecified cp - Pain in left knee cp Followup: cp - With: Private Physician - When: 2 - 3 days - Reason: Worsening of condition Discharge Instructions: - Discharge Summary Sheet cp - Musculoskeletal Pain cp - Shoulder Pain cp - Acute Knee Pain, Adult cp - Shoulder Range of Motion Exercises cp Forms: - Medication Reconciliation Form cp - Antibiotic Education cp - Prescription Opioid Use cp - Patient Portal Instructions cp - Leadership Thank You Letter cp Prescriptions: - diclofenac sodium 1 % Topical gel - apply 1 gram TOPICAL route 3-4 times daily apply to knee, shoulder joints for cp pain; 30 gram tube; Refills: 0, Product Selection Permitted Signatures: Dispatcher [employer] EDAayush Hanley MD MD rn Kirk Griffin, PA-C PA-C Flex Pena, RN RN bp Corrections: (The following items were deleted from the chart) 06/05 16: 16:41 BASIC METABOLIC PANEL+C.LAB.BRZ ordered. EDMS EDMS 16 16:41 CBC+H.LAB.BRZ ordered. EDMS EDMS 16: 16:41 TYPE AND SCREEN+BB.LAB.BRZ ordered. EDMS EDMS 16:41 Head C Spine Cap Wo Con+CT.RAD.BRZ ordered. EDMS EDMS
--- NOTE | 2025-06-05 18:30 | ER ---
Nurse's Notes [facility] Name: Aurea Felix Age: 70 yrs Sex: Female : 1955 Arrival Date: 06/05/2025 Time: 16:28 Bed 13 Private MD: Diagnosis: Fall from bed, initial encounter;Pain in right shoulder;Dorsalgia, unspecified;Pain in left knee Presentation: 06/05 16:33 Chief complaint: EMS states: ROLLED OUT OF BED, L KNEE PAIN. Coronavirus screen: At bp this time, the client does not indicate any symptoms associated with coronavirus-19. Ebola Screen: No symptoms or risks identified at this time. Initial Sepsis Screen: Does the patient meet any 2 criteria? No. Patient's initial sepsis screen is negative. Does the patient have a suspected source of infection? No. Patient's initial sepsis screen is negative. Risk Assessment: Do you want to hurt yourself or someone else? Patient reports no desire to harm self or others. Onset of symptoms is unknown. Care prior to arrival: IV initiated. 20 GA, in the right antecubital area. 16:33 Method Of Arrival: EMS: [facility] bp 16:33 Acuity: JUAN A 3 bp Triage Assessment: 16:34 General: Appears in no apparent distress. Behavior is calm, cooperative, appropriate bp for age. Pain: Complains of pain in left knee. EENT: No deficits noted. Neuro: No deficits noted. Cardiovascular: No deficits noted. Respiratory: No deficits noted. GI: No signs and/or symptoms were reported involving the gastrointestinal system. : No signs and/or symptoms were reported regarding the genitourinary system. Derm: No deficits noted. Musculoskeletal: No deficits noted. Historical: - PMHx: 16:34 acid reflux; acid reflux; Anxiety; Cerebral infarction; cranial nerve disorder; CVA; bp depressive disorder; diabetes mellitus; Diverticulitis; GERD; Glaucoma; Hyperlipidemia; Hypertensive disorder; LEFT SIDED WEAKNESS; Osteoporosis; restless leg syndrome; TIA; - Immunization history:: Adult Immunizations up to date. - Infectious Disease History:: Denies. - Social history:: Smoking status: Patient denies any tobacco usage or history of. Screenin:35 [facility] ED Fall Risk Assessment (Adult) History of falling in the last 3 months, bp including since admission No falls in past 3 months (0 pts) Confusion or Disorientation No (0 pts) Intoxicated or Sedated No (0 pts) Impaired Gait No (0 pts) Mobility Assist Device Used No (0 pt) Altered Elimination No (0 pt) Score/Fall Risk Level 0 - 2 = Low Risk Oriented to surroundings. Abuse screen: Denies threats or abuse. Denies injuries from another. Nutritional screening: No deficits noted. Tuberculosis screening: No symptoms or risk factors identified. Assessment: 16:35 General: SEE TRIAGE NOTE. bp 18:45 Reassessment: [facility] CONTACTED FOR DC. TRANSPORT PENDING. bp Vital Signs: 16:33 BP 174 / 74; Pulse 75; Resp 16; Temp 98; Pulse Ox 95% ; bp 18:44 BP 167 / 75; Pulse 78; Resp 16; Pulse Ox 95% ; bp ED Course: 16:33 Patient arrived in ED. bp 16:34 Kirk Griffin PA-C is PHCP. cp 16:34 Aayush Rodriguez MD is Attending Physician. cp 16:34 Triage completed. bp 16:34 Arm band placed on. bp 16:35 Patient has correct armband on for positive identification. bp 16:35 Maintain EMS IV. Dressing intact. Good blood return noted. Site clean \T\ dry. Gauge \T\ bp site: 20 RAC. 16:42 Flex Leal, RN is Primary Nurse. bp 17:02 XRAY Knee LEFT 3 view In Process Unspecified. EDMS 17:36 Chest Abd Pelvis Wo Con In Process Unspecified. EDMS 17:36 Head C Spine Mpr Wo Con In Process Unspecified. EDMS 18:44 No provider procedures requiring assistance completed. IV discontinued, intact, bp bleeding controlled, No redness/swelling at site. Pressure dressing applied. Administered Medications: No medications were administered Medication: 16:35 VIS not applicable for this client. bp Outcome: 18:29 Discharge ordered by MD. cp 19:08 Discharged to [facility]. kt5 19:08 Condition: stable 19:08 Discharge instructions given to EMS, Instructed on discharge instructions, follow up and referral plans. Demonstrated understanding of instructions, follow-up care, 19:09 Patient left the ED. kt5 Signatures: Dispatcher [employer] EDMS Kirk Griffin PA-C PA-C cp Peltier, Brian, DIRK RN bp Cally, Mireya, RN RN kt5
[2025-06-05 19:23] VITALS: TEMP 98; O2SAT 95
[2025-06-05 19:25] VITALS: BP 167/75
== END 2025-06-05 19:09 | disposition home or self-care (01) ==
LOC: ER 16:28
DX: M25.511 Pain in right shoulder (principal); M54.9 Dorsalgia, unspecified; M25.562 Pain in left knee; W06.XXXA Fall from bed, initial encounter
CPT/HCPCS: 36415; 70450; 71250; 72125; 74176; 80048; 85025; 86850; 86900; 86901; 99283

== ENCOUNTER 2025-06-11 08:43 | Emergency (ER) | payer OTHER, MEDICAID ==
--- OUTSIDE RECORDS SUMMARY | 2025-06-11 08:48 | XMS REPORT | Continuity of Care Document ---
Author Name Unknown Address [address] [place] [address] [facility] Address [address] [place] [address] Care Team Providers Care Training Officer Name Role Phone Pcp, Patient Does Not Have A Primary Care Physic cintia [facility] Attending Clinician Unavailable CASSY YOON Attending Clinician Unavail able Cassy Yoon MD Attending Clinician [phone] YASMANY HOLLAND Attending Clinician Unavailable NIKI TAO Attending Clinician Unabreana wayne Doctor Unassigned, [place] Attending Clinician U Sugey Lewis MD Attending Clinician SUGEY FARLEY Attending Clinician UnavailSUGEY Arguello Attending Clinician UnavailPANDA Garcia Attending Clinician Unavailable JEFFERSON DENNY Admitting Clinician Unavailable PANDA LOPEZ Admitting Clinician Unavailable Payers Payer Name Policy Type Policy Number Effective Date Expirati on Date Source [facility] MEDICARE ADVANTAGE Medicare [id number] 2025 00:00:00 [facility] STAR PLUS Medicaid [id number] 2024 00:00:[address] [facility] CONNECTED MMP [id number] 2025 00:00:00 [facility] [id number] 2019 00:00:00 [facility] Medicare A & B [id number] 2010 00:00:00 [facility] Problems Condition Name Condition Details Condition Category [...] 00:00: 00 Tanner Jacobson Problem Condition Active [facility] Fall Fall Disease Resolve d 05-12 00:00: [...] NO KNOWN ALLERGIE S Drug Class Active [facility] No Known Allergie s DA Active [facility] Social History Social Habit Start Date Stop Date Quantity Comments Source Gender identity 2023-11-17 04:29:54 Identifies as female gender (finding) [facility] ASSERTION Possible [facility] Sexual orientation [facility] History of tobacco use Passive smoker [facility] Alcoholic beverage intake 2025-05-12 00:00:00 2025-05-12 00:00:00 Lifetime non-drinker (finding) [facility] Cigarettes smoked current (pack per day) - Reported 2025-03-15 00:00:00 2025-03-15 00:00:00 [facility] Cigarette pack-years 2025-03-15 00:00:00 2025-03-15 00:00:00 [facility] Tobacco use and exposure 2025-03-15 00:00:00 2025-03-15 00:00:00 Smokeless tobacco non-user [facility] History of Social function 2025-03-15 00:00:00 2025-03-15 00:00:00 [facility] Sex 2023-11-17 04:29:54 2023-11-17 04:29:54 Female (finding) [facility] Sex Assigned At 1955 00:00:00 1955 00:00:[address] [facility] Smoking Status Start Date Stop Date Source Tobacco smoking consumption unknown [facility] Smokes tobacco daily 2025-03-15 00:00:00 [facility] Medications Ordered Medication Name Filled Medication Name Start Date Stop Date Current Medication? Ordering Clinician Indication Dosage Frequency Signature (SIG) Comments Components Source cetirizine (ZyrTEC) 10 MG tablet cetirizine (ZyrTEC) 10 MG tablet 05-12 10:47: 03 Yes 10mg Q24H Take 10 mg by mouth daily as needed for allergies. Tanner Jacobson fenofibrate (Tricor) 145 MG tablet fenofibrate (Tricor) 145 MG tablet 05-12 10:47: 00 Yes 145mg Take 145 mg by mouth at bedtime. Tanner Jacobson buPROPion XL (Wellbutrin XL) 150 MG [...] 20 mg by mouth at bedtime. Tanner Jacobson guaiFENesin (Robitussin ) 100 MG/5ML liquid guaiFENesin [...] and 30 mg in the evening. Tanner Miguel [facility] Oyster Shell Calcium w/D (Calcium + Vitamin D3) 500-5 MG-MCG tablet Oyster Shell Calcium w/D (Calcium + Vitamin D3) 500-5 MG-MCG tablet 05-12 10:44: 13 Yes 1{tbl} Q.5D Take 1 tablet by mouth in the morning and 1 tablet in the evening. Tanner Miguel [facility] metFORMIN (Glucophage ) 500 MG tablet metFORMIN (Glucophage ) 500 MG tablet 05-12 10:44: 13 Yes 500mg Take 500 mg by mouth in the morning and 500 mg in the evening. Take with meals. Tanner Jacobson HYDROcodone -acetaminop hen (May) 10-325 MG tablet HYDROcodone -acetaminop hen (May) 10-325 MG tablet 05-12 10:44: 13 Yes [...] mouth 1 time each day. Tanner Miguel [facility] docusate sodium (Colace) 100 MG capsule docusate sodium (Colace) 100 MG capsule 05-12 10:44: 13 Yes 200mg QD Take 200 mg by mouth 1 time each day. Tanner Miguel [facility] Cranberry 450 MG capsule Cranberry 450 MG capsule 05-12 10:44: 13 Yes 900mg QD Take 900 mg by mouth 1 time each day. Tanner Miguel [facility] glimepiride (Amaryl) 4 MG tablet glimepiride (Amaryl) 4 MG tablet 05-12 10:44: 13 Yes 4mg Take 4 mg by mouth in the morning. Take before meals. Tanner Miguel [facility] risperiDONE (RisperDAL) 1 MG tablet risperiDONE (RisperDAL) 1 MG tablet 16 00:00: 00 Yes 1mg QD Take 1 mg by mouth 1 time each day. Tanner Miguel [facility] traZODone (Desyrel) 50 MG tablet traZODone (Desyrel) 50 MG tablet 12 00:00: 00 Yes 300mg Take 300 mg by mouth. Tanner Miguel [facility] buPROPion XL (Wellbutrin XL) 300 MG 24 hr tablet buPROPion XL (Wellbutrin XL) 300 MG 24 hr tablet - 00:00: 00 Yes 300mg Take 300 mg by mouth. Tanner Miguel [facility] traZODone (Desyrel) 300 MG tablet traZODone (Desyrel) [...] Three Times A Day for Muscle Spasm [facility] Calcium Carbonate/V itamin D3 (Calcium 500 + Vit D 200 Tablet) 1 Each TABLET Calcium Carbonate/V itamin D3 (Calcium 500 + Vit D 200 Tablet) 1 Each TABLET Yes 1 Twice A Day for Osteoporos is [facility] Docusate Sodium Docusate Sodium Yes 2 Daily as needed for Constipati on [facility] Duloxetine Hcl (Cymbalta) 30 Mg CAPSULE. Duloxetine Hcl (Cymbalta) 30 Mg CAPSULE.DR Garcia 60 Daily for Major Depressive Disorder [facility] Fenofibrate (Tricor) 145 Mg TAB Fenofibrate (Tricor) 145 Mg TAB Yes 145 Bedtime for Hyperlipid emia [facility] Furosemide (Lasix) 20 Mg TABLET Furosemide (Lasix) 20 Mg TABLET Yes 20 Daily for Chronic Ischemic Heart Disease [facility] Levofloxaci n Levofloxaci n Yes 500 Daily for Diverticul itis [facility] Loratadine Loratadine Yes 10 Skylar y for Seasonal Allergies [facility] Metronidazo le (Flagyl) 500 Mg TABLET Metronidazo le (Flagyl) 500 Mg TABLET Yes 1 Every 8 Hours for Diverticul itis [facility] Omeprazole Omeprazole Yes 20 Skylar y for Gerd [facility] Oxybutynin Chloride (Ditropan Xl) 5 Mg TAB.ER.24 Oxybutynin Chloride (Ditropan Xl) 5 Mg TAB.ER.24 Yes 5 Daily for Stress Incontinen ce [facility] Potassium Chloride Potassium Chloride Yes 10 Daily for Chronic Ischemic Heart Disease [facility] Promethazin e Hcl (Phenergan) 25 Mg/1 Ml AMPUL Promethazin e Hcl (Phenergan) 25 Mg/1 Ml AMPUL Yes 25 Every 8 Hours as needed for Nausea And Vomiting [facility] Propranolol Hcl Propranolol Hcl Yes 40 Twice A Day for Primary Hypertensi on [facility] Ropinirole Hcl Ropinirole Hcl Yes Bedtime for Restless Leg Syndrome [facility] Sennosides (Senna Lax) 8.6 Mg TABLET Sennosides (Senna Lax) 8.6 Mg TABLET Yes 8.6 Every 12 Hours as needed for Constipati on [facility] Trazodone Hcl Trazodone Hcl Yes 1 Bedtime for Insomnia [facility] Vital Signs Vital Name Observation Time Observation Value Comments Chrystal torrey Systolic blood pressure 2025-05-12 10:53:00 144 mm[Hg] [facility] Diastolic blood pressure 2025-05-12 10:53:00 60 mm[Hg] [facility] Heart rate 2025-05-12 10:53:00 69 /min Krunal Miguel [facility] Body temperature 2025-05-12 10:53:00 36.11 [facility] Respiratory rate 2025-05-12 10:53:00 16 /min [facility] Oxygen saturation in Arterial blood by Pulse oximetry 2025-05-12 10:53:00 92 /min [facility] Systolic blood pressure 2025-05-12 10:53:00 144 mm[Hg] [facility] Diastolic blood pressure 2025-05-12 10:53:00 60 mm[Hg] [facility] Heart rate 2025-05-12 10:53:00 69 /min [facility] Body temperature 2025-05-12 10:53:00 36.11 [facility] Respiratory rate 2025-05-12 10:53:00 16 /min [facility] Oxygen saturation in Arterial blood by Pulse oximetry 2025-05-12 10:53:00 92 /min [facility] Body Temperature 2020-08-09 08:49:00 98.0 [degF] [facility] Heart Rate 2020-08-09 08:49:00 89 /min [facility] Respiratory rate 2020-08-09 08:49:00 18 /min [facility] BP Systolic 2020-08-09 08:49:00 151 mm[Hg] [facility] BP Diastolic 2020-08-09 08:49:00 81 mm[Hg] [facility] Oxygen saturation by Pulse oximetry 2020-08-09 08:49:00 98 /min [facility] BMI (Body Mass Index) 2020-08-04 10:44:00 36.3 kg/m2 [facility] Weight 2020-08-04 04:39:00 225 [lb_av] [facility] Procedures Procedure Date / Time Performed Performing Clinician Source EEG AWAKE AND SLEEP 2025-05-25 18:50:53 Cassy Yoon [facility] Complete Blood Count w/Diff and Platelet 2025-05-12 00:00:00 [facility] Comprehensive Metabolic Panel 2025-05-12 00:00:00 [facility] Lipid Panel w/calculated LDL 2025-05-12 00:00:00 [facility] EEG awake and sleep 2025-05-12 [facility] EXTERNAL PROVIDER RECORDS 2023-06-10 05:01:00 Doctor Unassigned, [place] [facility] EXTERNAL PROVIDER RECORDS 2023-06-04 05:01:00 Doctor Unassigned, [place] [facility] X-ray of chest, two views 2020-08-08 00:00:00 [facility] Plan of Care Planned Activity Planned Date Details Comments Source Encounters Start Date/Time End Date/Time Encounter Type Admission Type Attending [facility] Facility Care Department Encounter ID Source 2020-08-04 00:06:00 Inpatient [facility] [id number] [facility] 2025-05-25 10:00:00 2025-05-25 11:05:35 Procedure Visit C Eeg-E[facility], [facility] Jeanine 1..840.114 350.1.13.70 8.2.7.2.686 [id number] [facility] 2025-05-12 10:39:15 2025-05-12 11:42:30 Outpatient Elective CASSY YOON [facility] [id number] EOUT 2025-05-12 10:30:00 2025-05-12 11:42:30 Consult Cassy Yoon 1..840.114 350.1.13.70 8.2.7.2.686 [id number] [facility] 2025-04-13 15:30:00 2025-04-13 15:30:00 Outpatient YASMANY HOLLAND [facility] [id number] [facility] 2025-03-14 17:05:00 2025-03-16 18:00:00 Inpatient Emergency NIKI TAO [facility] General Medicine [id number] [facility] 2023-06-10 00:00:00 2023-06-10 00:00:00 Orders Only Doctor Unassigned, [place] [facility] 1..840.114 350.1.13.10 4.2.7.2.686 [id number] [facility] 2023-06-04 00:00:00 2023-06-04 00:00:00 Orders Only Doctor Unassigned, [place] [facility] 1.2.840.114 350.1.13.10 4.2.7.2.686 [id number] [facility] 2023-05-31 09:30:00 2023-05-31 10:23:03 Office Visit Sugey Farley [facility] 1.2.840.114 350.1.13.10 4.2.7.2.686 [id number] [facility] 2023-05-31 09:30:00 2023-05-31 10:23:03 Outpatient R SUGEY FARLEY [facility] [id number] [facility] 2023-05-10 14:16:00 2023-05-10 23:59:00 Hospital Encounter Sugey Farley [facility] 1.2.840.114 350.1.13.10 4.2.7.2.686 [id number] [facility] 2023-05-10 00:00:00 2023-05-10 23:59:00 Outpatient R SUGEY FARLEY [facility] OUT [id number] [facility] 2020-08-04 04:17:00 2020-08-09 12:05:00 Discharged Inpatient 1 JESSICAPANDA [facility] [id number] [facility] Results Test Description Test Time Test [...] appeared. No behavior suggestive of seizure occurred. [facility] less than one hour fixfiueu3700-51-08 16:15:00* Test Item Value Reference Range Interpretation [...] is revoked under 564(g) of the ACT.SHELLI [facility] 2020-08-08 11:47:00 [facility] 1955 Sex: F [address] Name: FLAVIA FELIX MR #: [id number] : 1955 Age/Sex: 65/F Req #: [id number] Adm Physician: PANDA LOPEZ MD Ordered by: PANDA LOPEZ MD Report #: [id number] Location: MED[facility] Room/Bed: [facility] Procedure: [id number] DX/CHEST 2 VIEWS Exam Date: 08/08/20 Exam [...] No focal pneumonia or pulmonary edema. Signed by:Kristen Mcfarland MD on 08/08/2020 11:48 AM Dictated By: KRISTEN MCFARLAND MD 1148 Transcribed By: LUIGI on 08/08/20 1148 COPY TO: PANDA LOPEZ MDBlselwyn leukocytes automated count (number/volume)2020-08-08 05:24:00* Test Item Value Reference Range Interpretation Comme [facility] White Blood Count (test code = 6690-2) 9.55 10*3/uL 4.8-10.8 [facility] erythrocytes automated count (number/volume)2020-08-08 05:24:00* Test Item Value Reference Range Interpretation Comme [facility] Red Blood Count (test code = 789-8) 3.89 10*6/mL 3.6-5.1 [facility] hemoglobin measurement (moles/volume) 2020-08-08 05:24:00* Test Item Value Reference Range Interpretation Comme [facility] Hemoglobin (test code = 96140-7) 12.0 g/dL 12.0-16.0 [facility] Hospital[facility] blood hematocrit (volume fraction) 2020-08-08 05:24:00* Test Item Value Reference Range Interpretation Comme [facility] Hematocrit (test code = 4544-3) 35.8 % 34.2-44.1 [facility] Hospital[facility] erythrocyte mean corpuscular volume 2020-08-08 05:24:00* Test Item Value Reference Range Interpretation Comme [facility] Mean Corpuscular Volume (dahlia t code = 787-2) 92.0 81-99 [facility] Hospital[facility] erythrocyte mean corpuscular hemoglobin (mass per erythrocyte)2020-08-08 05:24:00* Test Item Value Reference Range Interpretation Comme nts Mean Corpuscular Hemoglobin (test code = 785-6) 30.8 pg 28-32 [facility] HospitalAutom[facility] erythrocyte mean corpuscular hemoglobin concentration measurement (mass/volume)2020-08-08 05:24:00* Test Item Value Reference Range Interpretation Comme nts Mean Corpuscular Hemoglobin Concent (test code = 786-4) 33.5 g/dL 31-35 [facility] HospitalRDW UzfIi-Szy5087-00-14 05:24:00* Test Item Value Reference Range Interpretation Comme nts Red Cell Distribution Width (test code = 42063-3) 14.3 % 11.7-14.4 [facility] Hospital[facility] blood platelet count (count/volume) 2020-08-08 05:24:00* Test Item Value Reference Range Interpretation Comme nts Platelet Count (test code = 777-3) 298 10*3/uL 140-360 [facility] HospitalAutomated blood segmented neutrophil count as percentage of total ellblgyzlz2613-35-25 05:24:00* Test Item Value Reference Range Interpretation Comme nts Neutrophils (%) (Auto) (test code = 40436-4) 66.9 % 38.7-80.0 [facility] HospitalAutom[facility] blood lymphocyte count as percentage ot total mlhswiasli6187-55-86 05:24:00* Test Item Value Reference Range Interpretation Comme nts Lymphocytes (%) (Auto) (test code = 736-9) 22.2 % 18.0-39.1 [facility] HospitalAutomated blood monocyte count as percentage of total zvmhgpshei6877-97-11 05:24:00* Test Item Value Reference Range Interpretation Comme nts Monocytes (%) (Auto) (test c ode = 5905-5) 8.6 % 4.4-11.3 [facility] HospitalAutomated blood eosinophil count as percentage of total epeclhzmtc4092-07-56 05:24:00* Test Item Value Reference Range Interpretation Comme nts Eosinophils (%) (Auto) (test code = 713-8) 1.2 % 0.0-6.0 [facility] HospitalAutomated blood basophil count as percentage of total hqyzkhyokc3359-52-82 05:24:00* Test Item Value Reference Range Interpretation Comme nts Basophils (%) (Auto) (test c ode = 706-2) 0.3 % 0.0-1.0 [facility] HospitalAutomated blood neutrophil ydrdh0467-80-17 05:24:00* Test Item Value Reference Range Interpretation Comme nts Neutrophils # (Auto) (test c ode = 751-8) 6.4 2.1-6.9 [facility] HospitalBlood lymphocytes count (number/volume) 2020-08-08 05:24:00* Test Item Value Reference Range Interpretation Comme nts Lymphocytes # (Auto) (test c ode = 92293-2) 2.1 1.0-3.2 [facility] HospitalBlood monocytes automated count (number/volume)2020-08-08 05:24:00* Test Item Value Reference Range Interpretation Comme nts Monocytes # (Auto) (test code = 742-7) 0.8 0.2-0.8 [facility] HospitalAutomated blood eosinophil pxdld1361-32-61 05:24:00* Test Item Value Reference Range Interpretation Comme nts Eosinophils # (Auto) (test c ode = 711-2) 0.1 0.0-0.4 [facility] HospitalAutomated blood basophil count (count/volume) 2020-08-08 05:24:00* Test Item Value Reference Range Interpretation Comme nts Basophils # (Auto) (test code = 704-7) 0.0 0.0-0.1 [facility] HospitalFluoroscopic procedure less than one hour acpfregy5115-35-35 05:24:00* Test Item Value Reference Range Interpretation Comme nts Absolute Immature Granulocyt e (auto (test code = Absolute Immature Granulocyte (auto) 0.08 10*3/uL 0-0.1 [facility] calcium measurement (mass/volume)2020-08-07 06:10:00* Test Item Value Reference Range Interpretation Comme nts Calcium Level (test code = 96909-3) 8.7 mg/dL 8.4-10.2 [facility] HospitalFluoroscopic procedure less than one hour fjsjzvxc8064-96-15 06:10:00* Test Item Value Reference Range Interpretation Comme nts Lactic Acid Level (test code = Lactic Acid Level) 0.7 mmol/L 0.5-2.0 [facility] sodium measurement (moles/volume)2020-08-07 06:10:00* Test Item Value Reference Range Interpretation Comme nts Sodium Level (test code = 2951-2) 141 mmol/L 136-145 [facility] potassium measurement (moles/volume)2020-08-07 06:10:00* Test Item Value Reference Range Interpretation Comme nts Potassium Level (test code = 2823-3) 3.8 mmol/L 3.5-5.1 [facility] chloride measurement (moles/volume)2020-08-07 06:10:00* Test Item Value Reference Range Interpretation Comme nts Chloride Level (test code = 2075-0) 111 mmol/L 98-107 [facility] or plasma carbon dioxide, total measurement (moles/volume)2020-08-07 06:10:00* Test Item Value Reference Range Interpretation Comme [facility] Carbon Dioxide Level (test c ode = 2028-9) 23 mmol/L 22-29 [facility] or plasma anion oav0581-98-69 06:10:00 * Test Item Value Reference Range Interpretation Comme nts Anion Gap (test code = 23469-4) 10.8 mmol/L 8-16 [facility] or plasma urea nitrogen measurement (mass/volume)2020-08-07 06:10:00* Test Item Value Reference Range Interpretation Comme nts Blood Urea Nitrogen (test co de = 3094-0) 7 mg/dL 7-26 [facility] or plasma creatinine measurement (mass/volume)2020-08-07 06:10:00* Test Item Value Reference Range Interpretation Comme nts Creatinine (test code = 2160-0) 0.66 mg/dL 0.57-1.11 [facility] or plasma urea nitrogen/creatinine mass pmljb7634-73-87 06:10:00* Test Item Value Reference Range Interpretation Comme nts BUN/Creatinine Ratio (test c ode = 3097-3) 11 02-17 [facility] HospitalEstimated glomerular filtration rate (GFR) ketxozgioquly3963-30-07 06:10:00* Test Item Value Reference Range Interpretation Comme nts Estimat Glomerular Filtratio n Rate (test code = 221744871) > 60 mL/min >60 Ranges were taken from the National Kidney Disease Education Program and the National Kidney Foundation literature.Reference ranges:60 or greater: Chwqbj31- 59 (for 3 consecutive months): Chronic kidney disease 15 or less: Kidney failure [facility] HospitalGlucose aucynnwatqd7776-03-32 06:10:00* Test Item Value Reference Range Interpretation Comme [facility] Glucose Level (test code = FDZ9234) 118 mg/dL 74-118 [facility] HospitalClostridium difficile A and B toxin assay 2020-08-06 17:26:00* Test Item Value Reference Range Interpretation Comme nts Clostridium Difficile Toxin A & B (test code = 980028358) NEGATIVE NEGATIVE Testing on stool aspirate specimens is outside planning engineer claims since specimen type not validated on this assay.[facility] Blood dtjeqai3316-80-99 16:40:00* Test Item Value Reference Range Interpretation Comme nts Blood Culture (test code = 22196680) NO GROWTH AFTER 5 DAYS, FINAL REPORT [facility] or plasma magnesium measurement (mass/volume)2020-08-06 15:10:00* Test Item Value Reference Range Interpretation Comme nts Magnesium Level (test code = 41260-1) 1.4 mg/dL 1.3-2.1 [facility] HospitalCHEST SINGLE (PORTABLE)2020-08-04 21:56:00 [facility] 1955 Sex: F [facility] [address] [place], [place] [address] P atient Name: FLAVIA FELIX MR #: [id number] : 1955 Age/Sex: 65/F #: [id number] Adm Physician: PANDA LOPEZ MD Ordered by: PANDA LOPEZ MD Report #: [id number] Location: MED/SURG3 Room/Bed: [facility] Procedure: [id number] DX/CHEST SINGLE (PORTABLE) Exam Date: 08/04/20 Exam [...] Expiration Date V isits Requested Visits Authorized [id number] Authorized 05/12/2025 05/07/2026 1 1 [facility]Nmimlkq0731[facility]50-90 18:52:51 [facility] CenterCkygqly8358-64-09 18:52:51* Cassy Yoon MD - 05/25/2025 10:00 [...] appeared. No behavior suggestive of seizure occurred. [facility] CenterXlvktrf2947-51-05 18:52:51Upcoming Encounters Health Maintenance Due Date Last [...] on patient's age to complete this topic [facility] CenterGctqcxa5098-67-39 18:52:51 Diagnosis TIA (transient ischemic attack) - Primary Unspecified transient cerebral ischemia Bilateral carotid artery stenosis Occlusion and stenosis of carotid artery without mention of cerebral infarction Hallucinations [facility] CenterRuoqyto9296-03-77 18:52:51 [facility] CenterVcovkit7593-22-72 17:47:07* Neurology (Routine) - Pending Review Specialty Diagnoses / Procedures Referred By Sol antony Referred To Contact Diagnoses TIA (transient ischemic attack) Bilateral carotid artery stenosis Hallucinations Procedures EEG awake and sleep Cassy Yoon MD [address] [place] [address] Phone: tel: fax: Referral ID Status Reason Start Date Expiration Date V isits Requested Visits Authorized [id number] Pending Review 05/12/2025 05/07/2026 1 1 [facility] CenterXippsbt9162-40-06 17:47:07* [facility] CenterLimvrec9449-77-25 17:47:07 [facility] CenterKwqucxb1313-22-80 17:47:07* Cassy Yoon MD - 05/12/2025 10:30 [...] been effective. She is a resident at [facility] and has a history of multiple falls at home, which led to her return to the facility. She has a son and a third son who are involved in her care. Objective Past Medical History She has a past medical history of Chest pain (04/03/2016), Fall (05/12/2025), Intertrochanteric fracture of left hip (05/12/2025), Stroke (HCC), and Weakness of left leg (05/12/2025). Surgical [...] 4 hours if needed for cough. HYDROcodone-acetaminophen (May) 10-325 MG tablet Take 1 tablet by [...] all four extremities. ReflexesLeft sided hyperreflexia. CoordinationRight: [id number] normal. Gait In a wheelchair. Relevant ResultsLabs: [...] relief. - Continue current pain management regimen. [place] [id number] 17:47:07Upcoming Encounters Scheduled Orders Name Type Priority [...] on patient's age to complete this topic [id number]:47[facility]07 Diagnosis TIA (transient ischemic attack) - Primary Unspecified transient cerebral ischemia Bilateral carotid artery stenosis Occlusion and stenosis of carotid artery without mention of cerebral infarction Hallucinations Restless legs syndrome Restless legs syndrome (RLS) Other chronic pain [id number] 17:47:07 Surjit Mokane
[2025-06-11] MEDS ORDERED: HYDROCODONE/APAP 5/325 MG TAB ONE (09:31)
--- NOTE | 2025-06-11 09:43 | RAD REPORT ---
Exam:Foot Left 3 View CLINICAL HISTORY: Left foot pain FINDINGS: No fracture or dislocation seen Hallux valgus poorly. Bones are osteoporotic.
--- NOTE | 2025-06-11 09:47 | RAD REPORT ---
EXAMINATION: CT HEAD WITHOUT CONTRAST CT CERVICAL SPINE WITHOUT CONTRAST CLINICAL INDICATION: Head and neck injury status post fall. Head and neck pain TECHNIQUE: Axial CT images from the skull base to the vertex without intravenous contrast. Axial CT i mages through the cervical spine were obtained without intravenous contrast. Sagittal and coronal reformatted images were created from the data set. Coronal and sagittal reformatted images were creat ed from the data set. One or more of the following dose reduction techniques were used: Automated exposure control, adjustment of the mA and/or kV according to patient size, and/or iterative reconstr uction. Unless otherwise specified, incidental findings do not require dedicated imaging follow-up. [id number]. Comparison: June 05, 2025 FINDINGS: Small scalp hematoma. . An intracranial bleed is not seen. Ventricles are normal in caliber. No significant hypodensity within the brain No extra-axial fluid collection. No fluid within the sinuses/mastoids No fracture or dislocation is seen involving the cervical spine. Spondylosis cervical spine IMPRESSION: No acute intracranial abnormality noted A cervical fracture is not seen. 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
--- NOTE | 2025-06-11 09:50 | RAD REPORT ---
Exam:Ankle Left 3 View HISTORY: left ankle pain FINDINGS: No fracture or dislocation is seen Osteoporosis
--- NOTE | 2025-06-11 10:03 | EDPHYS ---
Physician Documentation [facility] Name: Aurea Felix Age: 70 yrs Sex: Female : 1955 Arrival Date: 06/11/2025 Time: 08:43 Bed 5 Private MD: ED Physician Kirk Dahl HPI: 06/11 08:58 This 70 yrs old Female presents to ER via EMS with complaints of fall / head dr5 injury. 08:58 Patient is a 70-year-old female with history of osteoporosis, GERD, hypertension, dr5 bipolar disorder normally ambulates with walker at [facility]. Patient reports she was reaching over this morning to grab her walker when she accidentally rolled out of bed and hit the right side of her head. Patient reports she takes clopidogrel and no other blood thinners. Patient denies loss of consciousness. Patient denies numbness, tingling, dizziness, blurry vision.. Historical: - Allergies: 09:08 No Known Allergies; ar8 - PMHx: 09:08 acid reflux; Anxiety; Cerebral infarction; cranial nerve disorder; CVA; depressive ar8 disorder; diabetes mellitus; Diverticulitis; GERD; Glaucoma; Hyperlipidemia; Hypertensive disorder; LEFT SIDED WEAKNESS; Osteoporosis; restless leg syndrome; TIA; - Immunization history:: Adult Immunizations not up to date. - Infectious Disease History:: Denies. - Social history:: Smoking status: Patient reports the use of cigarette tobacco products, smokes one-half pack cigarettes per day. ROS: 08:58 Constitutional: as per hpi dr5 Exam: 08:58 Constitutional: This is a well developed, well nourished patient who is awake, alert, dr5 and in no acute distress. Head/Face: Normocephalic, hematoma noted to right side of head behind ear. Eyes: Pupils equal round and reactive to light, extra-ocular motions intact. Lids and lashes normal. Conjunctiva and sclera are non-icteric and not injected. Cornea within normal limits. Periorbital areas with no swelling, redness, or edema. Neck: Trachea midline, no thyromegaly or masses palpated, and no cervical lymphadenopathy. Supple, full range of motion without nuchal rigidity, or vertebral point tenderness. No Meningismus. Chest/axilla: Normal chest wall appearance and motion. Nontender with no deformity. No lesions are appreciated. Cardiovascular: Regular rate and rhythm with a normal S1 and S2. Normal PMI, no JVD. No pulse deficits. Respiratory: Lungs have equal breath sounds bilaterally, clear to auscultation. No rales, rhonchi or wheezes noted. No increased work of breathing, no retractions or nasal flaring. Back: No spinal tenderness. No costovertebral tenderness. Full range of motion. Skin: Warm, dry with normal turgor. Normal color with no rashes, no lesions, and no evidence of cellulitis. MS/ Extremity: Pulses equal, no cyanosis. Neurovascular intact. Patient has had previous stroke with left-sided deficits. Patient reports that there is no change in her sensation on her left side. Neuro: Awake and alert, GCS 15, oriented to person, place, time, and situation. Cranial nerves II-XII grossly intact. Motor strength 5/5 in all extremities. Sensory grossly intact. Cerebellar exam normal. Normal gait. Vital Signs: 08:47 BP 141 / 118; Pulse 77; Resp 18; Temp 98.7(O); Pulse Ox 97% on R/A; Weight 63.5 kg; ar8 Height 5 ft. 1 in. ; Pain 9/10; 09:46 BP 146 / 79; Pulse 74; Resp 17; Pulse Ox 97% on R/A; ar8 10:30 BP 143 / 57; Pulse 70; Resp 16; Pulse Ox 96% on R/A; Pain 7/10; ar8 10:45 BP 148 / 64; Pulse 68; Resp 18; Pulse Ox 96% on R/A; ar8 08:47 Body Mass Index 26.45 (63.50 kg, 154.94 cm) ar8 08:47 Pain Scale: Adult ar8 10:30 Pain Scale: Adult ar8 MDM: 08:54 Medical Screening Exam initiated dr5 11:33 Differential Diagnosis altered mental status, Intracranial hemorrhage, intracranial dr5 fracture, hematoma. Data reviewed: vital signs, nurses notes, radiologic studies, CT scan, plain films. Consideration of Admission/Observation Escalation of care including admission/observation considered. Escalation considered patient found to have intracranial hemorrhage. I considered the following discharge prescriptions or medication management in the emergency department I discussed and recommended Over The Counter medications, Medications were administered in the Emergency Department. See MAR. Independent interpretation of the following test(s) in the Emergency Department X-Ray: My interpretation is Independent interpretation of x-ray does not reveal fracture. CT Scan: My interpretation is Independent interpretation of CT does not show intracranial hemorrhage. External Records Reviewed: Outpatient record: [facility] records reviewed. Care significantly affected by the following chronic conditions: Diabetes, Hypertension, Acid reflux, anxiety, CVA, depression. Care significantly affected by the following Social Determinants of Health: Poor access to healthcare and/or lack of insurance, Poor access to transportation, Problems related to employment. Counseling: I had a detailed discussion with the patient and/or guardian regarding the historical points, exam findings, and any diagnostic results supporting the discharge/admit diagnosis, the presence of at least one elevated blood pressure reading (>120/80) during this emergency department visit, radiology results, the need for outpatient follow up, for definitive care, a family practitioner, to return to the emergency department if symptoms worsen or persist or if there are any questions or concerns that arise at home. Medication response: Transfer. Response to treatment: the patient's symptoms have markedly improved after treatment. Special discussion: I discussed with the patient/guardian in detail that at this point there is no indication for admission to the hospital. It is understood, however, that if the symptoms persist or worsen the patient needs to return immediately for re-evaluation. Based on the history and exam findings, there is no indication for further emergent testing or inpatient evaluation. I discussed with the patient/guardian the need to see the primary care provider for further evaluation of the symptoms. ED course: No intracranial hemorrhage noted on CT scan. Patient reports feeling much better. All questions answered. Strict ER precautions given.. 06/11 08:54 Order name: CT Head C Spine; Complete Time: 10:00 dr5 06/11 09:04 Order name: Foot Left 3 View XRAY; Complete Time: 10:00 dr5 06/11 09:04 Order name: Ankle Left 3 View XRAY; Complete Time: 10:00 dr5 Administered Medications: 09:38 Drug: HYDROcodone-acetaminophen PO 5 mg-325 mg 1 tabs PO once Route: PO; ar8 10:33 Follow up: Response: No adverse reaction; Pain is decreased ar8 Disposition: 06/12 07:50 Co-signature as Attending Physician, Kirk Dahl MD I agree with the assessment and elena plan of care. Disposition Summary: 06/11/25 10:03 Discharge Ordered Notes: Location: Home dr5 Condition: Stable dr5 Diagnosis - Fall on same level, unspecified dr5 - Unspecified injury of head, initial encounter dr5 Followup: dr5 - With: Emergency Department - When: As needed - Reason: Worsening of condition Followup: dr5 - With: Private Physician - When: 1 - 2 days - Reason: Recheck today's complaints, Continuance of care, Re-evaluation by your physician Discharge Instructions: - Discharge Summary Sheet dr5 - Fall Prevention in the Home, Adult dr5 Forms: - Medication Reconciliation Form dr5 - Patient Portal Instructions dr5 - Leadership Thank You Letter dr5 Signatures: Dispatcher [employer] EDMS Kirk Dahl MD MD cha Rhodes, Dustin, TOOL AND DIE TECHNICIAN-C TOOL AND DIE TECHNICIAN-Cdr5 Jw Turner RN RN ar8 Corrections: (The following items were deleted from the chart) 06/11 08:54 08:54 Head C Spine MPR Wo Con+CT.RAD.BRZ ordered. EDMS EDMS 09:05 09:05 Ankle Left 3 View+RAD.RAD.BRZ ordered. EDMS EDMS
--- NOTE | 2025-06-11 10:03 | ER ---
Nurse's Notes [facility] Name: Aurea Felix Age: 70 yrs Sex: Female : 1955 Arrival Date: 06/11/2025 Time: 08:43 Bed 5 Private MD: Diagnosis: Fall on same level, unspecified;Unspecified injury of head, initial encounter Presentation: 06/11 08:47 Chief complaint: EMS states: Patient arrived via EMS from [place]. Per EMS, patient ar8 rolled out of bed hitting her head on the right side. Hematoma to right side of head. No LOC. Coronavirus screen: At this time, the client does not indicate any symptoms associated with coronavirus-19. Ebola Screen: No symptoms or risks identified at this time. 08:47 Method Of Arrival: EMS ar8 08:47 Initial Sepsis Screen: Does the patient meet any 2 criteria? No. Patient's initial ar8 sepsis screen is negative. Does the patient have a suspected source of infection? No. Patient's initial sepsis screen is negative. Risk Assessment: Do you want to hurt yourself or someone else? Patient reports no desire to harm self or others. Onset of symptoms was June 11, 2025. 08:47 Acuity: JUAN A 3 ar8 Triage Assessment: 08:47 General: Appears in no apparent distress. Behavior is calm, cooperative. ar8 08:47 Pain: Complains of pain in right side of the back of head Pain currently is 9 out of 10 ar8 on a pain scale. EENT:. Neuro: Level of Consciousness is awake, alert, obeys commands, Oriented to person, place, time, situation, left sided weakness from past CVA. Neuro: Reports head pain . Neuro: Reports headache in right occipital area. Cardiovascular: Patient's skin is warm and dry. Respiratory: Airway is patent Respiratory effort is even, unlabored, Respiratory pattern is regular, symmetrical. GI: No signs and/or symptoms were reported involving the gastrointestinal system. : No signs and/or symptoms were reported regarding the genitourinary system. Derm: No signs and/or symptoms reported regarding the dermatologic system. Injury Description: hematoma to back upper right side of head. Historical: - Allergies: 09:08 No Known Allergies; ar8 - PMHx: 09:08 acid reflux; Anxiety; Cerebral infarction; cranial nerve disorder; CVA; depressive ar8 disorder; diabetes mellitus; Diverticulitis; GERD; Glaucoma; Hyperlipidemia; Hypertensive disorder; LEFT SIDED WEAKNESS; Osteoporosis; restless leg syndrome; TIA; - Immunization history:: Adult Immunizations not up to date. - Infectious Disease History:: Denies. - Social history:: Smoking status: Patient reports the use of cigarette tobacco products, smokes one-half pack cigarettes per day. Screenin:14 [facility] ED Fall Risk Assessment (Adult) History of falling in the last 3 months, ar8 including since admission Yes- single mechanical fall (1 pt) Confusion or Disorientation No (0 pts) Intoxicated or Sedated No (0 pts) Impaired Gait Yes (1 pt) Mobility Assist Device Used Yes (1 pt) Altered Elimination No (0 pt) Score/Fall Risk Level 3 or more points = High Risk Oriented to surroundings, Maintained a safe environment. Abuse screen: Denies threats or abuse. Nutritional screening: No deficits noted. Tuberculosis screening: No symptoms or risk factors identified. Assessment: 09:00 Reassessment: See triage assessment. ar8 11:18 General: Updated pt regarding pending discharge, awaiting [facility] for transport kb3 back to [place]. Pt reports that she thinks she wore her left ankle brace this morning. Spoke with Jw who reported that she did not come in with a brace on. 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 Jeannette attempting to call [place] to verify pt's brace remains at her residence. Vital Signs: 08:47 BP 141 / 118; Pulse 77; Resp 18; Temp 98.7(O); Pulse Ox 97% on R/A; Weight 63.5 kg; ar8 Height 5 ft. 1 in. ; Pain 9/10; 09:46 BP 146 / 79; Pulse 74; Resp 17; Pulse Ox 97% on R/A; ar8 10:30 BP 143 / 57; Pulse 70; Resp 16; Pulse Ox 96% on R/A; Pain 7/10; ar8 10:45 BP 148 / 64; Pulse 68; Resp 18; Pulse Ox 96% on R/A; ar8 08:47 Body Mass Index 26.45 (63.50 kg, 154.94 cm) ar8 08:47 Pain Scale: Adult ar8 10:30 Pain Scale: Adult ar8 ED Course: 08:47 Arm band placed on right wrist. ar8 08:51 Patient arrived in ED. mr 08:53 Natanael Wellington FNP-C [facility]. dr[facility] 08:53 Kirk Dahl MD is Attending Physician. dr5 08:54 Jw Turner, RN is Primary Nurse. ar8 09:08 CT Head C Spine In Process Unspecified. EDMS 09:08 Triage completed. ar8 09:14 Bed in low position. Call light in reach. Side rails up X2. Provided Education on: plan ar8 of care. 09:14 No provider procedures requiring assistance completed. ar8 09:22 Foot Left 3 View XRAY In Process Unspecified. EDMS 09:22 Ankle Left 3 View XRAY In Process Unspecified. EDMS 10:30 Report given to [place] nurse, NANCIE Delacruz. ar8 11:27 Patient did not have IV access during this emergency room visit. ar8 Administered Medications: 09:38 Drug: HYDROcodone-acetaminophen PO 5 mg-325 mg 1 tabs PO once Route: PO; ar8 10:33 Follow up: Response: No adverse reaction; Pain is decreased ar8 Medication: 09:14 VIS not applicable for this client. ar8 Outcome: 10:03 Discharge ordered by . dr5 11:27 Discharged to [facility]. Report called to NANCIE Delacruz [facility] ar8 11:27 Condition: stable 11:27 Discharge instructions given to patient, [facility], EMS, Instructed on discharge instructions, follow up and referral plans. Demonstrated understanding of instructions, follow-up care, 11:27 Patient left the ED. ar8 Signatures: Dispatcher [employer] EDMS Rebecca Yoder, Reg Reg YoshiGianna, RN RN kb3 Natanael Wellington FNP-C LOFTSMAN-Cdr5 Jw Turner, RN RN ar8
[2025-06-11 13:30] VITALS: TEMP 98.7
[2025-06-11 13:32] VITALS: O2SAT 96
[2025-06-11 13:33] VITALS: BP 148/64
== END 2025-06-11 11:27 | disposition home or self-care (01) ==
LOC: ER 08:43
DX: S09.90XA Unspecified injury of head, initial encounter (principal); W18.30XA Fall on same level, unspecified, initial encounter; I10 Essential (primary) hypertension; E11.9 Type 2 diabetes mellitus without complications; E78.5 Hyperlipidemia, unspecified; F17.210 Nicotine dependence, cigarettes, uncomplicated
CPT/HCPCS: 70450; 72125; 99283

== ENCOUNTER 2025-06-14 16:21 | Emergency (ER) | payer OTHER, MEDICAID ==
--- OUTSIDE RECORDS SUMMARY | 2025-06-14 16:26 | XMS REPORT | Continuity of Care Document ---
Author Name Unknown Address [address] [facility] [address] [place] [address] [facility] [place] Address [address] [facility] [address] [place] [address] Care Team Providers Care Advertising Sales Assistant Name Role Phone NONSTAFF Primary Care Physician Unavailab le [facility]eg[facility], [facility] Attending Clinician Unavailable CASSY YOON Attending Clinician Unavail able Cassy Yoon MD Attending Clinician YASMANY HOLLAND Attending Clinician Unavailable NIKI TAO Attending Clinician Unabreana wayne Doctor Unassigned, [place] Attending Clinician U Sugey Lewis MD Attending Clinician SUGEY FARLEY Attending Clinician UnavailSUGEY Arguello Attending Clinician UnavailPANDA Garcia Attending Clinician Unavailable JEFFERSON DENNY Admitting Clinician Unavailable PANDA LOPEZ Admitting Clinician Unavailable Payers Payer Name Policy Type Policy Number Effective Date Expirati on Date Source [facility] MEDICARE ADVANTAGE Medicare [id number] 2025 00:00:00 [facility] Medicaid [id number] 2024 00:00:00 [facility] CONNECTED [facility] [id number] 2025 00:00:00 [facility] [id number] 2019 00:00:00 [facility] Medicare A & B [id number] 2010 00:00:00 [facility] Problems Condition Name Condition Details Condition Category [...] 00:00: 00 Tanner Jacobson Problem Condition Active [facility] Fall Fall Disease Resolve d 05-12 00:00: [...] Date Inactive Date Treating Clinician Comments Source No Known Allergie s DA Active [facility] NO KNOWN ALLERGIE S Drug Class Active [facility] Social History Social Habit Start Date Stop Date Quantity Comments Source Gender identity 2023-11-17 04:29:54 Identifies as female gender (finding) [facility] ASSERTION Possible [facility] Sexual orientation [facility] History of tobacco use Passive smoker [facility] Alcoholic beverage intake 2025-05-12 00:00:00 2025-05-12 00:00:00 Lifetime non-drinker (finding) [facility] Cigarettes smoked current (pack per day) - Reported 2025-03-15 00:00:00 2025-03-15 00:00:00 [facility] Cigarette pack-years 2025-03-15 00:00:00 2025-03-15 00:00:00 [facility] Tobacco use and exposure 2025-03-15 00:00:00 2025-03-15 00:00:00 Smokeless tobacco non-user [facility] History of Social function 2025-03-15 00:00:00 2025-03-15 00:00:00 [facility] Sex 2023-11-17 04:29:54 2023-11-17 04:29:54 Female (finding) [facility] Sex Assigned At 1955 00:00:00 1955 00:00:00 [facility] Smoking Status Start Date Stop Date Source Tobacco smoking consumption unknown [facility] Smokes tobacco daily 2025-03-15 00:00:00 [facility] Medications Ordered Medication Name Filled Medication Name Start Date Stop Date Current Medication? Ordering Clinician Indication Dosage Frequency Signature (SIG) Comments Components Source cetirizine (ZyrTEC) 10 MG tablet cetirizine (ZyrTEC) 10 MG tablet 05-12 10:47: 03 Yes 10mg Q24H Take 10 mg by mouth daily as needed for allergies. Tanner Miguel [facility] fenofibrate (Tricor) 145 MG tablet fenofibrate (Tricor) 145 MG tablet 05-12 10:47: 00 Yes 145mg Take 145 mg by mouth at bedtime. Tanner Miguel [facility] buPROPion XL (Wellbutrin XL) 150 MG 24 [...] with meals. Tanner Jacobson HYDROcodone -acetaminop hen ([place]) 10-325 MG tablet HYDROcodone -acetaminop hen ([place]) 10-325 MG tablet 05-12 10:44: 13 Yes [...] mouth 1 time each day. Tanner Jacobson Cranberry 450 MG capsule Cranberry 450 MG capsule 05-12 10:44: 13 Yes 900mg QD Take 900 mg by mouth 1 time each day. Tanner Miguel [facility] glimepiride (Amaryl) 4 MG tablet glimepiride (Amaryl) 4 MG tablet 05-12 10:44: 13 Yes 4mg Take 4 mg by mouth in the morning. Take before meals. Tanner Jacobson risperiDONE (RisperDAL) 1 MG tablet risperiDONE (RisperDAL) [...] tablet by mouth at bedtime. Tanner Jacobson Ropinirole Hcl Ropinirole Hcl Yes Bedtime for Restless Leg Syndrome [facility] Sennosides (Senna Lax) 8.6 Mg TABLET Sennosides (Senna Lax) 8.6 Mg TABLET Yes 8.6 Every 12 Hours as needed for Constipati on [facility] Trazodone Hcl Trazodone Hcl Yes 1 Bedtime for Insomnia [facility] Baclofen Baclofen Yes 10 Three Times A Day for Muscle Spasm [facility] Calcium Carbonate/V itamin D3 (Calcium 500 + Vit D 200 Tablet) 1 Each TABLET Calcium Carbonate/V itamin D3 (Calcium 500 + Vit D 200 Tablet) 1 Each TABLET Yes 1 Twice A Day for Osteoporos is [facility] Docusate Sodium Docusate Sodium Yes 2 Daily as needed for Constipati on [facility] Duloxetine Hcl (Cymbalta) 30 Mg CAPSULE. Duloxetine Hcl (Cymbalta) 30 Mg CAPSULE. Yes 60 Daily for Major Depressive Disorder [facility] Fenofibrate (Tricor) 145 Mg TAB Fenofibrate (Tricor) 145 Mg TAB Yes 145 Bedtime for Hyperlipid emia [facility] Furosemide (Lasix) 20 Mg TABLET Furosemide (Lasix) 20 Mg TABLET Yes 20 Daily for Chronic Ischemic Heart Disease [facility] Levofloxaci n Levofloxaci n Yes 500 Daily for Diverticul itis [facility] Loratadine Loratadine Yes 10 Skylar y for Seasonal Allergies [facility] Metronidazo le (Flagyl) 500 Mg TABLET Metronidazo le (Flagyl) 500 Mg TABLET Yes 1 Every 8 Hours for Diverticul itis [facility] Omeprazole Omeprazole Yes 20 Skylar y for Gerd [facility] Oxybutynin Chloride (Ditropan Xl) 5 Mg TAB.ER.24 Oxybutynin Chloride (Ditropan Xl) 5 Mg TAB.ER.24 Yes 5 Daily for Stress Incontinen ce [facility] Potassium Chloride Potassium Chloride Yes 10 Daily for Chronic Ischemic Heart Disease [facility] Promethazin e Hcl (Phenergan) 25 Mg/1 Ml AMPUL Promethazin e Hcl (Phenergan) 25 Mg/1 Ml AMPUL Yes 25 Every 8 Hours as needed for Nausea And Vomiting [facility] Propranolol Hcl Propranolol Hcl Yes 40 Twice A Day for Primary Hypertensi on [facility] Vital Signs Vital Name Observation Time Observation Value Comments S torrey Systolic blood pressure 2025-05-12 10:53:00 144 mm[Hg] [facility] Diastolic blood pressure 2025-05-12 10:53:00 60 mm[Hg] [facility] Heart rate 2025-05-12 10:53:00 69 /min [facility] Body temperature 2025-05-12 10:53:00 36.11 Colleen [facility] Respiratory rate 2025-05-12 10:53:00 16 /min [facility] Oxygen saturation in Arterial blood by Pulse oximetry 2025-05-12 10:53:00 92 /min [facility] Her sosa [facility] Systolic blood pressure 2025-05-12 10:53:00 144 mm[Hg] [facility] Diastolic blood pressure 2025-05-12 10:53:00 60 mm[Hg] [facility] Heart rate 2025-05-12 10:53:00 69 /min [facility] Body temperature 2025-05-12 10:53:00 36.11 Colleen [facility] Respiratory rate 2025-05-12 10:53:00 16 /min [facility] Oxygen saturation in Arterial blood by Pulse oximetry 2025-05-12 10:53:00 92 /min [facility] Body Temperature 2020-08-09 08:49:00 98.0 [degF] [facility] Heart Rate 2020-08-09 08:49:00 89 /min [facility] Respiratory rate 2020-08-09 08:49:00 18 /min [facility] BP Systolic 2020-08-09 08:49:00 151 mm[Hg] [facility] BP Diastolic 2020-08-09 08:49:00 81 mm[Hg] [facility] Oxygen saturation by Pulse oximetry 2020-08-09 08:49:00 98 /min [facility] BMI (Body Mass Index) 2020-08-04 10:44:00 36.3 kg/m2 [facility] Weight 2020-08-04 04:39:00 225 [lb_av] [facility] Procedures Procedure Date / Time Performed Performing Clinician Source EEG AWAKE AND SLEEP 2025-05-25 18:50:53 Cassy Yoon [facility] Complete Blood Count w/Diff and Platelet 2025-05-12 00:00:00 [facility] Comprehensive Metabolic Panel 2025-05-12 00:00:00 [facility] Lipid Panel w/calculated LDL 2025-05-12 00:00:00 [facility] EEG awake and sleep 2025-05-12 00:00:00 [facility] EXTERNAL PROVIDER RECORDS 2023-06-10 05:01:00 Doctor Unassigned, [place] [facility] EXTERNAL PROVIDER RECORDS 2023-06-04 05:01:00 Doctor Unassigned, [place] [facility] X-ray of chest, two views 2020-08-08 00:00:00 [facility] Plan of Care Planned Activity Planned Date Details Comments Source Encounters Start Date/Time End Date/Time Encounter Type Admission Type Attending Clinicians Care Facility Care Department Encounter ID Source 2020-08-04 00:06:00 Inpatient [facility] [id number] [facility] 2025-05-25 10:00:00 2025-05-25 11:05:35 Procedure Visit C Eeg-Emg, [facility] Jeanine 1.2.840.114 350.1.13.70 8.2.7.2.686 [id number] [facility] 2025-05-12 10:39:15 2025-05-12 11:42:30 Outpatient Elective CASSY YOON [facility] [id number] 2025-05-12 10:30:00 2025-05-12 11:42:30 Consult Cassy Yoon 1..840.114 350.1.13.70 8.2.7.2.686 [id number] Tanner tate [facility] 2025-04-13 15:30:00 2025-04-13 15:30:00 Outpatient YASMANY HOLLAND [facility] [id number] [facility] 2025-03-14 17:05:00 2025-03-16 18:00:00 Inpatient Emergency NIKI TAO [facility] General Medicine [id number] [facility] 2023-06-10 00:00:00 2023-06-10 00:00:00 Orders Only Doctor Unassigned, [place] [facility] 1..840.114 350.1.13.10 4.2.7.2.686 [id number] [facility] 2023-06-04 00:00:00 2023-06-04 00:00:00 Orders Only Doctor Unassigned, [place] [facility] 1.2.840.114 350.1.13.10 4.2.7.2.686 [id number] [facility] 2023-05-31 09:30:00 2023-05-31 10:23:03 [facility] 1.2.840.114 350.1.13.10 4.2.7.2.686 [id number] [facility] 2023-05-31 09:30:00 2023-05-31 10:23:03 Outpatient R SUGEY FARLEY [facility] [id number] [facility] 2023-05-10 14:16:00 2023-05-10 23:59:00 Hospital Encounter Sugey Farley [facility] 1.2.840.114 350.1.13.10 4.2.7.2.686 [id number] [facility] 2023-05-10 00:00:00 2023-05-10 23:59:00 Outpatient R SGUEY FARLEY [facility] [id number] [facility] 2020-08-04 04:17:00 2020-08-09 12:05:00 Discharged Inpatient 1 PANDA LOPEZ [facility] [id number] [facility] Results Test Description Test Time Test Comments [...] appeared. No behavior suggestive of seizure occurred. [facility] than one hour [id number] 16:15:00* Test Item Value Reference Range Interpretation [...] EUA is revoked under 564(g) of the ACT.[facility] 2020-08-08 11:47:00 [facility] 1955 Sex: F [address] Name: FLAVIA FELIX MR #: [id number] : 1955 Age/Sex: 65/F Req #: [id number] [facility] Physician: PANDA LOPEZ MD Ordered by: PANDA LOPEZ MD Report #: [id number]: MED/SURG3 Room/Bed: [facility] Procedure: [id number] DX/CHEST 2 VIEWS Exam Date: 08/08/20 Exam [...] Test Item Value Reference Range Interpretation Comme [facility] White Blood Count (test code = 6690-2) 9.55 10*3/uL 4.8-10.8 [facility] automated count (number/volume)2020-08-08 05:24:00* Test Item Value Reference Range Interpretation Comme [facility] Red Blood Count (test code = 789-8) 3.89 10*6/mL 3.6-5.1 [facility] hemoglobin measurement (moles/volume) 2020-08-08 05:24:00* Test Item Value Reference Range Interpretation Comme [facility] Hemoglobin (test code = 38947-9) 12.0 g/dL 12.0-16.0 [facility] blood hematocrit (volume fraction) 2020-08-08 05:24:00* Test Item Value Reference Range Interpretation Comme [facility] Hematocrit (test code = 4544-3) 35.8 % 34.2-44.1 [facility] erythrocyte mean corpuscular volume 2020-08-08 05:24:00* Test Item Value Reference Range Interpretation Comme [facility] Mean Corpuscular Volume (dahlia t code = 787-2) 92.0 81-99 [facility] eryth[facility] mean corpuscular hemoglobin (mass per erythrocyte)2020-08-08 05:24:00* Test Item Value Reference Range Interpretation Comme [facility] Mean Corpuscular Hemoglobin (test code = 785-6) 30.8 pg 28-32 [facility] erythrocyte mean corpuscular hemoglobin concentration measurement (mass/volume)2020-08-08 05:24:00* Test Item Value Reference Range Interpretation Comme nts Mean Corpuscular Hemoglobin Concent (test code = 786-4) 33.5 g/dL 31-35 [facility]berg[facility]DW VpiKw-Vxo5931-55-14 05:24:00* Test Item Value Reference Range Interpretation Comme [facility] Red Cell Distribution Width (test code = 43165-0) 14.3 % 11.7-14.4 [facility] platelet count (count/volume) 2020-08-08 05:24:00* Test Item Value Reference Range Interpretation Comme [facility] Platelet Count (test code = 777-3) 298 10*3/uL 140-360 [facility]berg[facility] blood segmented neutrophil count as percentage of total yqvfhoahsx3287-15-44 05:24:00* Test Item Value Reference Range Interpretation Comme nts Neutrophils (%) (Auto) (test code = 15840-4) 66.9 % 38.7-80.0 [facility]berg[facility] blood lymphocyte count as percentage ot total vrvimjspfn9036-51-51 05:24:00* Test Item Value Reference Range Interpretation Comme nts Lymphocytes (%) (Auto) (test code = 736-9) 22.2 % 18.0-39.1 [facility]berg[facility] blood monocyte count as percentage of total ekjlvsbprr1332-73-48 05:24:00* Test Item Value Reference Range Interpretation Comme nts Monocytes (%) (Auto) (test c ode = 5905-5) 8.6 % 4.4-11.3 [facility]berg[facility] blood eosinophil count as percentage of total lyzyowbhuo8132-47-91 05:24:00* Test Item Value Reference Range Interpretation Comme nts Eosinophils (%) (Auto) (test code = 713-8) 1.2 % 0.0-6.0 [facility]berg[facility] blood basophil count as percentage of total dvmpbuurae9224-33-11 05:24:00* Test Item Value Reference Range Interpretation Comme nts Basophils (%) (Auto) (test c ode = 706-2) 0.3 % 0.0-1.0 [facility]berg[facility] blood neutrophil zzkls5617-27-42 05:24:00* Test Item Value Reference Range Interpretation Comme nts Neutrophils # (Auto) (test c ode = 751-8) 6.4 2.1-6.9 [facility] lymphocytes count (number/volume) 2020-08-08 05:24:00* Test Item Value Reference Range Interpretation Comme nts Lymphocytes # (Auto) (test c ode = 41047-3) 2.1 1.0-3.2 [facility] monocytes automated count (number/volume)2020-08-08 05:24:00* Test Item Value Reference Range Interpretation Comme nts Monocytes # (Auto) (test code = 742-7) 0.8 0.2-0.8 [facility]berg[facility] blood eosinophil gltnq6865-68-03 05:24:00* Test Item Value Reference Range Interpretation Comme nts Eosinophils # (Auto) (test c ode = 711-2) 0.1 0.0-0.4 [facility] blood basophil count (count/volume) 2020-08-08 05:24:00* Test Item Value Reference Range Interpretation Comme nts Basophils # (Auto) (test code = 704-7) 0.0 0.0-0.1 [facility]bergFluoroscopic procedure less than one hour vsjshvhg1597-75-86 05:24:00* Test Item Value Reference Range Interpretation Comme nts Absolute Immature Granulocyt e (auto (test code = Absolute Immature Granulocyte (auto) 0.08 10*3/uL 0-0.1 [facility] sodium measurement (moles/volume)2020-08-07 06:10:00* Test Item Value Reference Range Interpretation Comme nts Sodium Level (test code = 2951-2) 141 mmol/L 136-145 [facility] potassium measurement (moles/volume)2020-08-07 06:10:00* Test Item Value Reference Range Interpretation Comme [facility] Potassium Level (test code = 2823-3) 3.8 mmol/L 3.5-5.1 [facility] or [facility] chloride measurement (moles/volume)2020-08-07 06:10:00* Test Item Value Reference Range Interpretation Comme [facility] Chloride Level (test code = 2075-0) 111 mmol/L 98-107 [facility] carbon dioxide, total measurement (moles/volume)2020-08-07 06:10:00* Test Item Value Reference Range Interpretation Comme [facility] Carbon Dioxide Level (test c ode = 2028-9) 23 mmol/L 22-29 [facility] or plasma anion gsl8027-94-16 06:10:00 * Test Item Value Reference Range Interpretation Comme [facility] Anion Gap (test code = 53443-1) 10.8 mmol/L 8-16 [facility] plasma urea nitrogen measurement (mass/volume)2020-08-07 06:10:00* Test Item Value Reference Range Interpretation Comme [facility] Blood Urea Nitrogen (test co de = 3094-0) 7 mg/dL 7-26 [facility] creatinine measurement (mass/volume)2020-08-07 06:10:00* Test Item Value Reference Range Interpretation Comme [facility] Creatinine (test code = 2160-0) 0.66 mg/dL 0.57-1.11 [facility] plasma urea nitrogen/creatinine mass ebsof1363-30-80 06:10:00* Test Item Value Reference Range Interpretation Comme [facility] BUN/Creatinine Ratio (test c ode = 3097-3) 11 6-25 [facility]ated glomerular filtration rate (GFR) jfmavcgbtendx9148-70-03 06:10:00* Test Item Value Reference Range Interpretation Comme [facility] Estimat Glomerular Filtratio n Rate (test code = 229085640) > 60 mL/min >60 Ranges were taken from the National Kidney Disease Education Program and the National Kidney Foundation literature.Reference ranges:60 or greater: Umaptb35- 59 (for 3 consecutive months): Chronic kidney disease 15 or less: Kidney failure [facility]bergGlucose omzegghflvy3029-44-56 06:10:00* Test Item Value Reference Range Interpretation Comme nts Glucose Level (test code = QHU1642) 118 mg/dL 74-118 [facility] calcium measurement (mass/volume)2020-08-07 06:10:00* Test Item Value Reference Range Interpretation Comme nts Calcium Level (test code = 29475-6) 8.7 mg/dL 8.4-10.2 [facility]bergFluoroscopic procedure less than one hour tuqciorz6998-00-00 06:10:00* Test Item Value Reference Range Interpretation Comme nts Lactic Acid Level (test code = Lactic Acid Level) 0.7 mmol/L 0.5-2.0 [facility]bergClostridium difficile A and B toxin assay 2020-08-06 17:26:00* Test Item Value Reference Range Interpretation Comme nts Clostridium Difficile Toxin A & B (test code = 122735380) NEGATIVE NEGATIVE Testing on stool aspirate specimens is outside drama director claims since specimen type not validated on this assay.[facility] Blood yqkynxe8351-60-51 16:40:00* Test Item Value Reference Range Interpretation Comme nts Blood Culture (test code = 08643278) NO GROWTH AFTER 5 DAYS, FINAL REPORT [facility] or plasma magnesium measurement (mass/volume)2020-08-06 15:10:00* Test Item Value Reference Range Interpretation Comme nts Magnesium Level (test code = 36150-1) 1.4 mg/dL 1.3-2.1 [facility] ([facility]ABLE)2020-08-04 21:56:00 [facility] 1955 Sex: F [facility] [address] [place] Name: FLAVIA FELIX MR #: [id number] : 1955 Age/Sex: 65/F Req #: [id number] Adm Physician: PANDA LOPEZ MD Ordered by: PANDA LOPEZ MD Report #: [id number] Location: MED/SURG3 Room/Bed: [facility] Procedure: [id number] DX/CHEST SINGLE (PORTABLE) Exam Date: 08/04/20 Exam Time: 2034 REPORT STATUS: Signed EXAMINATION: CHEST SINGLE (PORTABLE) INDICATION: [id number] COMPARISON: None FINDINGS: Patient rotation mildly limits examination. Heart is nonenlarged. Low lung volumes. Mild elevation of the right hemidiaphragm. Patchy and linear lung opacities atthe right base. Left lung is clear. No pneumothorax. No pleural effusion. IMPRESSION: Mild elevation of the right hemidiaphragm with patchy and strandy right basilar opacities which could represent atelectasis or pneumonia the appropriate clinical setting. Mild diffuse interstitial densities may re present a component of vascular congestion. Signed by: Aldo Braden MD on 08/04/2020 9:59 PM Dictated By: ALDO BRADEN MD 59 Transcribed By: LUIGI on 08/04/202158 COPY TO: PANDA LOPEZ MD Notes Upcoming Encounters Date/Time Note Provider Source Health Maintenance Due Date Last Done Comments [...] on patient's age to complete this topic [facility]Qq[facility]71[facility]44 18:52:51 Diagnosis TIA (transient ischemic attack) - Primary Unspecified transient cerebral ischemia Bilateral carotid artery stenosis Occlusion and stenosis of carotid artery without mention of cerebral infarction Hallucinations [facility] CenterRcxitxs6541-62-55 18:52:51 [place] [id number] 18:52:51* Neurology (Routine) - Authorized Specialty Diagnoses / Procedures Referred By Sol t Referred To Contact Neurology Diagnoses TIA (transient ischemic attack) Bilateral carotid artery stenosis Hallucinations Procedures EEG awake and sleep Cassy Yoon MD [address] [place] [address] Phone: tel: fax: Cassy Yoon MD [address] [place] [address] Phone: tel: fax: Referral ID Status Reason Start Date Expiration Date V isits Requested Visits Authorized [id number] Authorized 05/12/2025 05/07/2026 1 1 [facility] CenterRmdwvgm8961-36-35 18:52:51 [facility] CenterAseztqk2473-99-60 18:52:51* Cassy Yoon MD - 05/25/2025 10:00 [...] appeared. No behavior suggestive of seizure occurred. [facility] CenterOnafqvn2830-89-21 17:47:07* Neurology (Routine) - Pending Review Specialty Diagnoses / Procedures Referred By Sol antony Referred To Contact Diagnoses TIA (transient ischemic attack) Bilateral carotid artery stenosis Hallucinations Procedures EEG awake and sleep Cassy Yoon MD [address] [place] [address] Phone: tel: fax: Referral ID Status Reason Start Date Expiration Date V isits Requested Visits Authorized [id number] Pending Review 05/12/2025 05/07/2026 1 1 [facility] CenterFgevcuo5255-11-23 17:47:07* [facility] Rdnuhwk0071-84-33 17:47:07 [facility] Qehykgg7419-78-51 17:47:07* Cassy Yoon MD - 05/12/2025 10:30 [...] been effective. She is a resident at [facility] and has a history of multiple falls [...] 4 hours if needed for cough. HYDROcodone-acetaminophen ([place]) 10-325 MG tablet Take 1 tablet by [...] all four extremities. ReflexesLeft sided hyperreflexia. CoordinationRight: [id number] normal. Gait In a wheelchair. Relevant ResultsLabs: [...] relief. - Continue current pain management regimen. [id number] 17:47:07Upcoming Encounters Scheduled Orders Name Type Priority [...] on patient's age to complete this topic [facility] [id number] 17:47:07 Diagnosis TIA (transient ischemic attack) - Primary Unspecified transient cerebral ischemia Bilateral carotid artery stenosis Occlusion and stenosis of carotid artery without mention of cerebral infarction Hallucinations Restless legs syndrome Restless legs syndrome (RLS) Other chronic pain [id number] 17:47:07 Surjit Miguel
--- NOTE | 2025-06-14 18:24 | RAD REPORT ---
EXAMINATION: Head C Spine Mpr Wo Con CLINICAL INDICATION: Female, 70 years old. TRAUMA TECHNIQUE: Axial CT images from the skull base to the vertex without intravenous contrast. Axial CT i mages through the cervical spine were obtained without intravenous contrast. Sagittal and coronal reformatted images were created from the data set. Coronal and sagittal reformatted images were creat ed from the data set. One or more of the following dose reduction techniques were used: Automated exposure control, adjustment of the mA and/or kV according to patient size, and/or iterative reconstr uction. Unless otherwise specified, incidental findings do not require dedicated imaging follow-up. [id number]. COMPARISON: 06/11/2025 FINDINGS: Head: INTRACRANIAL: No acute intracranial hemorrhage. Remote right MCA territory infarct. No hydrocephalu s. No mass effect or midline shift. No significant white matter disease. VASCULATURE: No visualized abnormalities in the arteries or dural venous sinuses. SCALP/SKULL: No calvarial fracture identified. No acute soft tissue abnormality. SINUSES: The visualized paranasal sinuses are mostly clear. No significant mastoid fluid. Cervical spine: ALIGNMENT: The cervical spine has normal alignment without scoliosis or spondylolisthesis. BONE: Vertebral body heights are maintained. No aggressive osseous lesions. DEGENERATIVE: Multilevel cervical spondylosis with evidence of bilateral neural foraminal narrowing. No high grade central spinal stenosis. SOFT TISSUE: No significant abnormalities in the soft tissue of the neck. The visualized lung apices are clear. IMPRESSION: No acute intracranial abnormality. No acute fracture or traumatic malalignment of the cervical spine.
--- NOTE | 2025-06-14 18:36 | ER ---
Nurse's Notes [facility] Name: Aurea Felix Age: 70 yrs Sex: Female : 1955 Arrival Date: 06/14/2025 Time: 16:21 Bed 24 Private MD: Diagnosis: Fall on same level, unspecified;Contusion of unspecified part of head Presentation: 06/14 16:30 Chief complaint: EMS states: fell out of bed, hit head, no loc. Care prior to arrival: kj2 None. Mechanism of Injury: Fall an unknown distance. Trauma event details: Injury occurred: June 14, 2025. 16:30 Acuity: JUAN A 3 kj2 16:30 Method Of Arrival: EMS: [facility] kj2 16:39 Coronavirus screen: Client denies travel out of the [place] in the last 14 days. Ebola kj2 Screen: No symptoms or risks identified at this time. Initial Sepsis Screen: Does the patient meet any 2 criteria? No. Patient's initial sepsis screen is negative. Does the patient have a suspected source of infection? No. Patient's initial sepsis screen is negative. Risk Assessment: Do you want to hurt yourself or someone else? Patient reports no desire to harm self or others. Onset of symptoms was June 14, 2025. Triage Assessment: 16:30 Pain: Denies pain. kj2 Historical: - Allergies: 16:36 No Known Allergies; kj2 - PMHx: 16:36 acid reflux; Anxiety; Cerebral infarction; cranial nerve disorder; CVA; depressive kj2 disorder; diabetes mellitus; Diverticulitis; GERD; Glaucoma; Hyperlipidemia; Hypertensive disorder; LEFT SIDED WEAKNESS; Osteoporosis; restless leg syndrome; TIA; - Code Status:: Full code. - Immunization history: Last tetanus immunization: unknown. - Infectious Disease History:: Denies. - Social history:: Smoking status: unknown. Screenin:39 [facility] ED Fall Risk Assessment (Adult) History of falling in the last 3 months, kj2 including since admission Yes- single mechanical fall (1 pt) Confusion or Disorientation No (0 pts) Intoxicated or Sedated No (0 pts) Impaired Gait Yes (1 pt) Mobility Assist Device Used Yes (1 pt) Altered Elimination No (0 pt) Score/Fall Risk Level 3 or more points = High Risk Maintained a safe environment, Hourly rounding (assess needs \T\ fall precautionary measures) done, Apply high fall risk patient identification: yellow non skid footwear/ fall signage. Abuse screen: Denies threats or abuse. Denies injuries from another. Nutritional screening: No deficits noted. Tuberculosis screening: No symptoms or risk factors identified. Primary Survey: 16:30 Reassessment Alertness and Airway: Awake and alert. The airway is patent. Airway Patent kj2 Breathing: Spontaneous respiratory effort, equal unlabored respirations, breath sounds clear bilaterally, regular pattern with symmetrical chest rise and fall. 16:33 NO uncontrolled hemorrhage observed. Breathing/Chest: Spontaneous respiratory effort, kj2 equal unlabored respirations, breath sounds clear bilaterally, regular pattern, symmetrical chest rise and fall. Respiratory effort: spontaneous, unlabored, Breath sounds: clear, Respiratory pattern: regular, Chest inspection: symmetrical rise and fall of the chest. Circulation: No external hemorrhage present. Regular and strong central pulse, skin warm/dry/normal color. Disability Pupils are equal, round, reactive to light and accommodation. Client is alert. Exposure/Environment: All clothing and personal items were removed. Forensic evidence collection is not deemed to be indicated at this time. Items placed in patient belonging bag. There is no evidence of uncontrolled external bleeding. Assessment: 16:32 General: Appears in no apparent distress. Behavior is calm, cooperative. Neuro: Level kj2 of Consciousness is awake, alert, obeys commands, Oriented to person, place, situation. EENT: No deficits noted. Cardiovascular: Patient's skin is warm and dry. Respiratory: Airway is patent Respiratory effort is unlabored. GI: No signs and/or symptoms were reported involving the gastrointestinal system. : No signs and/or symptoms were reported regarding the genitourinary system. 17:45 Reassessment: Patient appears in no apparent distress at this time. Patient and/or kj2 family updated on plan of care and expected duration. Pain level reassessed. Patient is alert, oriented x 3, equal unlabored respirations, skin warm/dry/pink. 18:45 Reassessment: Patient appears in no apparent distress at this time. Patient and/or kj2 family updated on plan of care and expected duration. Pain level reassessed. Patient is alert, oriented x 3, equal unlabored respirations, skin warm/dry/pink. Vital Signs: 16:34 BP 142 / 62; Pulse 63; Resp 18; Temp 97.8; Pulse Ox 98% on R/A; Weight 65.77 kg; Height kj2 5 ft. 1 in. ; 17:45 BP 133 / 67; Pulse 71; Resp 18; Pulse Ox 97% ; kj2 19:00 BP 141 / 88; Pulse 76; Resp 20; Temp 97.9; Pulse Ox 99% ; kj2 16:34 Body Mass Index 27.40 (65.77 kg, 154.94 cm) kj2 Jessica Coma Score: 16:34 Eye Response: spontaneous(4). Motor Response: obeys commands(6). Verbal Response: kj2 oriented(5). Total: 15. Trauma Score (Adult): 16:34 Eye Response: spontaneous(1); Verbal Response: oriented(1); Motor Response: obeys kj2 commands(2); Systolic BP: > 89 mm Hg(4); Respiratory Rate: 10 to 29 per min(4); Jessica Score: 15; Trauma Score: 12 ED Course: 16:28 Patient arrived in ED. kj2 16:30 Cyndy Valles, DIRK is Primary Nurse. kj2 16:31 Natanael Wellington FNP-C is PHCP. dr5 16:31 Nimo Love MD is Attending Physician. dr5 16:32 Triage completed. kj2 16:35 Patient has correct armband on for positive identification. Bed in low position. Call kj2 light in reach. Provided Education on: call light. 16:37 Patient maintains SpO2 saturation greater than 95% on room air. kj2 16:39 No provider procedures requiring assistance completed. kj2 16:45 Arm band placed on Patient placed. kj2 17:00 Thermoregulation: none needed. kj2 17:31 CT Head C Spine In Process Unspecified. EDMS 19:10 Patient did not have IV access during this emergency room visit. kj2 Administered Medications: No medications were administered Medication: 16:30 VIS not applicable for this client. kj2 Outcome: 18:36 Discharge ordered by . dr5 19:09 Discharged to [facility]. kj2 19:09 Condition: stable 19:09 Patient's length of stay was not longer than 2 hours. 19:09 Discharge instructions given to patient, Instructed on discharge instructions, follow kj2 up and referral plans. Demonstrated understanding of instructions, follow-up care, 19:12 Patient left the ED. kj2 Signatures: Dispatcher [employer] Cyndy Grullon RN RN kj2 Natanael Wellington, CAGER OPERATOR-C CAGER OPERATOR-Cdr5 Corrections: (The following items were deleted from the chart) 16:43 16:34 BP 142 / 62; Pulse 63bpm; Resp 18bpm; Pulse Ox 98% RA; 65.77 kg; Height 5 ft. 1 kj2 in.; BMI: 27.4; kj2
--- NOTE | 2025-06-14 18:36 | EDPHYS ---
Physician Documentation [facility] Name: Aurea Felix Age: 70 yrs Sex: Female : 1955 Arrival Date: 06/14/2025 Time: 16:21 Bed 24 Private MD: ED Physician Nimo Love HPI: 06/14 19:44 This 70 yrs old Female presents to ER via EMS with complaints of Fall Injury. dr5 19:44 Details of fall: The patient fell from seated position. dr5 19:44 Patient is a 70-year-old female history of acid reflux, anxiety, CVA, depression coming dr5 in for head injury to back right of head after falling out of bed. Patient denies being on blood thinners. Patient denies loss of consciousness.. Historical: - Allergies: 16:36 No Known Allergies; kj2 - PMHx: 16:36 acid reflux; Anxiety; Cerebral infarction; cranial nerve disorder; CVA; depressive kj2 disorder; diabetes mellitus; Diverticulitis; GERD; Glaucoma; Hyperlipidemia; Hypertensive disorder; LEFT SIDED WEAKNESS; Osteoporosis; restless leg syndrome; TIA; - Code Status:: Full code. - Immunization history: Last tetanus immunization: unknown. - Infectious Disease History:: Denies. - Social history:: Smoking status: unknown. ROS: 19:44 Constitutional: as per hpi dr5 Exam: 19:44 Constitutional: This is a well developed, well nourished patient who is awake, alert, dr5 and in no acute distress. Head/Face: Normocephalic, atraumatic. Contusion noted to back right scalp consistent with hematoma. ENT: Nares patent. No nasal discharge, no septal abnormalities noted. Tympanic membranes are normal and external auditory canals are clear. Oropharynx with no redness, swelling, or masses, exudates, or evidence of obstruction, uvula midline. Mucous membranes moist. Neck: Trachea midline, no thyromegaly or masses palpated, and no cervical lymphadenopathy. Supple, full range of motion without nuchal rigidity, or vertebral point tenderness. No Meningismus. Chest/axilla: Normal chest wall appearance and motion. Nontender with no deformity. No lesions are appreciated. Cardiovascular: Regular rate and rhythm with a normal S1 and S2. Normal PMI, no JVD. No pulse deficits. Respiratory: Lungs have equal breath sounds bilaterally, clear to auscultation. No rales, rhonchi or wheezes noted. No increased work of breathing, no retractions or nasal flaring. Back: No spinal tenderness. No costovertebral tenderness. Full range of motion. Skin: Warm, dry with normal turgor. Normal color with no rashes, no lesions, and no evidence of cellulitis. MS/ Extremity: Pulses equal, no cyanosis. Neurovascular intact. Full, normal range of motion. Neuro: Awake and alert, GCS 15, oriented to person, place, time, and situation. Cranial nerves II-XII grossly intact. Motor strength 5/5 in all extremities. Sensory grossly intact. Cerebellar exam normal. Normal gait. Vital Signs: 16:34 BP 142 / 62; Pulse 63; Resp 18; Temp 97.8; Pulse Ox 98% on R/A; Weight 65.77 kg; Height kj2 5 ft. 1 in. ; 17:45 BP 133 / 67; Pulse 71; Resp 18; Pulse Ox 97% ; kj2 19:00 BP 141 / 88; Pulse 76; Resp 20; Temp 97.9; Pulse Ox 99% ; kj2 16:34 Body Mass Index 27.40 (65.77 kg, 154.94 cm) kj2 Jessica Coma Score: 16:34 Eye Response: spontaneous(4). Motor Response: obeys commands(6). Verbal Response: kj2 oriented(5). Total: 15. Trauma Score (Adult): 16:34 Eye Response: spontaneous(1); Verbal Response: oriented(1); Motor Response: obeys kj2 commands(2); Systolic BP: > 89 mm Hg(4); Respiratory Rate: 10 to 29 per min(4); [place] Score: 15; Trauma Score: 12 MDM: 16:31 Medical Screening Exam initiated dr5 19:44 Differential diagnosis: abrasion, closed head injury, contusion, laceration, sprain, dr5 strain. Data reviewed: vital signs, nurses notes, radiologic studies, CT scan. Consideration of Admission/Observation Escalation of care including admission/observation considered. Escalation considered patient found to have intracranial hemorrhage. I considered the following discharge prescriptions or medication management in the emergency department I discussed and recommended Over The Counter medications. Independent interpretation of the following test(s) in the Emergency Department CT Scan: My interpretation is Independent interpretation of CT does not reveal intracranial hemorrhage. External Records Reviewed: Outpatient record: [facility] records were reviewed. Care significantly affected by the following Social Determinants of Health: Poor access to healthcare and/or lack of insurance, Poor access to transportation, Problems related to employment. Counseling: I had a detailed discussion with the patient and/or guardian regarding the historical points, exam findings, and any diagnostic results supporting the discharge/admit diagnosis, the presence of at least one elevated blood pressure reading (>120/80) during this emergency department visit, radiology results, the need for outpatient follow up, for definitive care, a family practitioner, to return to the emergency department if symptoms worsen or persist or if there are any questions or concerns that arise at home. Special discussion: Based on the patient's history, exam and DX evaluation, there is no indication for emergent intervention or inpatient TX. It is understood by the patient/guardian that if the SXs persist or worsen they need to return immediately for re-evaluation. I discussed with the patient/guardian in detail that at this point there is no indication for admission to the hospital. It is understood, however, that if the symptoms persist or worsen the patient needs to return immediately for re-evaluation. Based on the history and exam findings, there is no indication for further emergent testing or inpatient evaluation. I discussed with the patient/guardian the need to see the primary care provider for further evaluation of the symptoms. ED course: No intracranial hemorrhage on CT scan. Patient is eating peanut butter and jelly sandwich on discharge and reports "what are we waiting for to take back home?" . Recommended increase hydration and alternate Tylenol Motrin as needed for pain. Strict ER precautions given. All questions answered.. 06/14 17:00 Order name: CT Head C Spine; Complete Time: 18:35 dr5 Administered Medications: No medications were administered Disposition Summary: 06/14/25 18:36 Discharge Ordered Notes: Location: Home dr5 Condition: Stable dr5 Diagnosis - Fall on same level, unspecified dr5 - Contusion of unspecified part of head dr5 Followup: dr5 - With: Emergency Department - When: As needed - Reason: Worsening of condition Followup: dr5 - With: Private Physician - When: 1 - 2 days - Reason: Recheck today's complaints, Continuance of care, Re-evaluation by your physician Discharge Instructions: - Discharge Summary Sheet dr5 - Fall Prevention in the Home, Adult dr5 Forms: - Medication Reconciliation Form dr5 - Patient Portal Instructions dr5 - Leadership Thank You Letter dr5 Signatures: Dispatcher [employer] EDCyndy Irwin RN RN kj2 Natanael Wellington, MORTGAGE ANALYST-C MORTGAGE ANALYST-Cdr5 Corrections: (The following items were deleted from the chart) 16:42 16:42 Femur Left+RAD.RAD.BRZ ordered. EDMS EDMS 16:57 16:42 Scrotum Testicles+US.RAD.BRZ ordered. EDMS EDMS 16:57 16:42 Extremity Venous Uni Ltd+US.RAD.BRZ ordered. EDMS EDMS 16:57 16:42 Hip Left 2 View+RAD.RAD.BRZ ordered. EDMS EDMS 17:00 17:00 Head C Spine MPR Wo Con+CT.RAD.BRZ ordered. EDMS EDMS
[2025-06-15 01:46] VITALS: BP 141/88; TEMP 97.9; O2SAT 99
== END 2025-06-14 19:12 | disposition home or self-care (01) ==
LOC: ER 16:21
DX: S00.83XA Contusion of other part of head, initial encounter (principal); W07.XXXA Fall from chair, initial encounter; Y93.9 Activity, unspecified; Y92.9 Unspecified place or not applicable; K21.9 Gastro-esophageal reflux disease without esophagitis; F41.9 Anxiety disorder, unspecified; E78.5 Hyperlipidemia, unspecified; G25.81 Restless legs syndrome; M81.0 Age-related osteoporosis without current pathological fracture; F32.A Depression, unspecified; Z86.73 Personal history of transient ischemic attack (TIA), and cerebral infarction without residual deficits
CPT/HCPCS: 70450; 72125; 99284